=== PATIENT | female | born 1965 | race Caucasian/White ===

== ENCOUNTER 2021-06-04 10:17 | Outpatient (AMBR) | payer MEDICAID, SELFPAY ==
--- NOTE | 2021-05-18 12:50 | PTNOTE_ITS ---
PT OP Initial Eval Patient Information Visit Reasons: post op left knee Medical Diagnosis: M17.12 Treatment Dx #1: Left Knee Pain Treatment Dx #2: Left Knee Weakness Start of Care: 05/18/21 Date of Onset: 09/11/20 Initial Assessment Subjective Pt is a 56 y/o female s/p I and D of the left knee secondary to infection 09/11/20. Pt mention that she had her left knee replaced 08/04/20 shortly afterward it became infected. Pt only recieved a few sessions of homehealth PT. Pt still has knee pain (5/10) with activities. Pt has limitation with walking, chores, squatting, kneeling, self care, cooking, balance, and performing recreational activities. Objective Left Knee AROM: -10 deg to 116 deg Left Knee MMTs Quads: 3+/5 Hs: 3+/5 Left Hip MMTs Glute Med: 3/5 Glute Max: 3/5 SLS: NT Assessment Pt demonstrate left knee pain and mobility deficits s/p I and D leading to decline function. Pt will benefit from physical therapy to increase ROM, strength, and work on ambulation Short Term and Group Home Goals 1) Increase left knee AROM flexion to 120 deg in 8 wks to be able to perform chores 2) Increase left knee MMTs grossly to 4-/5 in 8 wks to be able to perform stairs and steps 3) Decrease knee pain to 2/10 in 8 wks to be able to stand more than 1 hr 4) Increase left hip MMTs grossly to 4-/5 in 8 wks to be able to ambulate without AD 5) Increase SLS to 10 sec in 8 wks to be able to perform self care activities 6) Indep with HEP Treatment Plan 1) Manual Therapy 2) Therapeutic Activities 3) Therapeutic Exercises 4) Modalities (ice, heat) 5) Balance Training 6) Gait Training Frequency and Duration 2 x wk for 8 wks Certification Dates: 05/18/21 to 08/16/21 Office Procedures PT Treatments PT Date of Service: 05/18/21 OP PT Eval Mod Complex 30 minutes: Yes
--- NOTE | 2021-05-29 13:09 | PT.ODAYNRPT ---
PT Outpatient Daily Note Date of Service: 05/29/21 OP Daily Note Visit Reasons: post op left knee Outpatient Physical Therapy Treatment Date: 05/29/21 Subjective: Pt mention that her knee still hurts. Pt has COPD leading to poor endurance Objective: Please see flow chart for list of ther ex performed Assessment: tolerate exercises; pacing throughout PT session due to SOB and fatigue secondary to COPD Plan: Continue with PT Length of Time (minutes) of Treatment: 30 Minutes Office Procedures PT Treatments PT Date of Service: 05/18/21 OP PT Eval Mod Complex 30 minutes: Yes PT Treatments PT Date of Service: 05/29/21 Therapeutic Exercise 30 minutes: Yes
--- NOTE | 2021-05-31 11:55 | PT.ODAYNRPT ---
PT Outpatient Daily Note Date of Service: 05/31/2021 OP Daily Note Visit Reasons: post op left knee Outpatient Physical Therapy Treatment Date: 05/31/21 Subjective: pt states she gets fatigue quickly due to having COPD. Objective: see flow sheet. Assessment: pt does take rest breaks as needed. she was able to complete her walking exercises without resting. advised her to sit and rest but she wanted to continue until she was done with the laps. she does get SOB. gave pt water during her breaks. added new ther ex in which caused her to fatigue more but she did well with them. she is able to demonstrate good knee ROM in flexion and extesnion. Plan: continue POC per PT. Length of Time (minutes) of Treatment: 30 Minutes Office Procedures PT Treatments PT Date of Service: 05/18/21 OP PT Eval Mod Complex 30 minutes: Yes PT Treatments PT Date of Service: 05/31/21 Therapeutic Exercise 30 minutes: Yes PT Treatments PT Date of Service: 05/29/21 Therapeutic Exercise 30 minutes: Yes
--- NOTE | 2021-06-04 10:48 | PT.ODAYNRPT ---
PT Outpatient Daily Note Date of Service: 06/04/2021 OP Daily Note Visit Reasons: post op left knee Outpatient Physical Therapy Treatment Date: 06/04/21 Subjective: pt came in stating her knee has been hurting since the surgery as she points to the back of the knee. Objective: see flow sheet. Assessment: pt did mention the pain while doing the FWD lunges. the more she increased her ROM the more the pain increased. advised her to stop if needed but she completed all reps. shew continues to take rest breaks when needed. she becomes SOB but once she feels better she continues onto the next exercises. Plan: continue POC per PT. Length of Time (minutes) of Treatment: 30 Minutes Office Procedures PT Treatments PT Date of Service: 05/18/21 OP PT Eval Mod Complex 30 minutes: Yes PT Treatments PT Date of Service: 05/31/21 Therapeutic Exercise 30 minutes: Yes PT Treatments PT Date of Service: 06/04/21 Therapeutic Exercise 30 minutes: Yes PT Treatments PT Date of Service: 05/29/21 Therapeutic Exercise 30 minutes: Yes
--- NOTE | 2021-06-26 15:36 | PT.ODS1RPT ---
PT OP Progress/Discharge Note Date of Service: 06/04/22 Progress Note/DC Note Progress Note/Discharge Note: DC Note Patient Information Visit Reasons: post op left knee Service Continue Service or Discharge: Discharge Discharge Date: 06/26/21 Status Assessment: Pt has been seen for 4 visits (eval + 3 visits). Pt last treated on 06/04/21 and has not returned to therapy. Pt has been contact multiple times without success. At this time Pt will be d/c from care due to non-compliance per attendance policy. Pt did not meet set goals in therapy, thank you for your referrals. Office Procedures PT Treatments PT Date of Service: 05/18/21 OP PT Eval Mod Complex 30 minutes: Yes PT Treatments PT Date of Service: 05/31/21 Therapeutic Exercise 30 minutes: Yes PT Treatments PT Date of Service: 06/04/21 Therapeutic Exercise 30 minutes: Yes PT Treatments PT Date of Service: 05/29/21 Therapeutic Exercise 30 minutes: Yes
== END 2021-06-08 23:59 | disposition home or self-care (01) ==
PROVIDERS: PCP Physician Assistant; Referring Provider Physician Assistant; Visit Provider Orthopaedic Surgery
DX: Z47.1 Aftercare following joint replacement surgery (principal); Z96.652 Presence of left artificial knee joint; M25.562 Pain in left knee; R53.1 Weakness; R26.2 Difficulty in walking, not elsewhere classified
CPT/HCPCS: 97110; 97162

== ENCOUNTER 2024-05-18 13:01 | Emergency (ER) | payer MEDICAID, SELFPAY ==
[2024-05-18 13:02] VITALS: BP 130/74; PULSE 80; RESP 19; TEMP 36.7; O2SAT 96
[2024-05-18 13:08] VITALS: PULSE 72; RESP 16; O2SAT 95; BMI 34.7
--- NOTE | 2024-05-18 13:16 | EKG_ITS ---
[facility] Test Date: 2024-05-18 Pat Name: ARLEEN POWELL Department: Room: - Gender: Female [employer]: : 1965 Requested By: Jose Francisco Tran (MILAGROS) Order Number: [id number] Reading MD: Jose Francisco Tran (PA[employer]) Measurements Intervals [place] Rate: 77 P: 58 NV: 157 QRS: 29 QRSD: 87 T: 49 QT: 383 QTc: 435 Interpretive Statements SINUS RHYTHM Compared to ECG 08/06/2020 14:12:23 Sinus arrhythmia no longer present T-wave abnormality no longer present /store/S0/[id number]/ecg/[id number].pdf
--- NOTE | 2024-05-18 13:16 | XR_ITS ---
Examination: PA lateral chest 2 views TECHNIQUE: Upright PA lateral chest 2 views Exam date and time: February 17, 2024 1340 hours Comparison May 14, 2023 INDICATIONS: Shortness of breath beginning 2 days ago. FINDINGS: Normal heart size Mild opacity left base retrocardiac Mild vascular congestion Moderate osteopenia IMPRESSION: Suspicious for early left base pneumonia
--- NOTE | 2024-05-18 13:17 | PD.EDRME ---
Rapid Medical Screening Exam RME Arrival date/time: 05/18/24 13:01 59-year-old female with history of COPD presents emergency department via EMS with complaints of shortness of breath Chief Complaint: Weakness Vital signs: Vital Signs Temperature 98.1 F 05/18/24 13:02 Pulse Rate 80 05/18/24 13:02 Respiratory Rate 19 05/18/24 13:02 Blood Pressure 130/74 05/18/24 13:02 Pulse Oximetry (%) 96 05/18/24 13:02 Oxygen Delivery Method Room Air 05/18/24 13:02
[2024-05-18 13:40] LABS: Basophils % (Auto) 1 % (0-2.5); Eosinophils # (Auto) 0.1 Thou/mm3 (0.0-0.5); Eosinophils % (Auto) 3 % (0-10); Hematocrit 26.4 % (36.0-46.0); Immature Granulocytes % (Auto) 0 % (0-0); Immature Granulocytes Auto 0.01 Thou/mm3 (0.00-0.00); Lymphocytes # (Auto) 0.8 Thou/mm3 (1.0-4.8); Lymphocytes % (Auto) 16 % (10-50); Mean Corpuscular HGB Conc 31.4 g/dl (31.0-37.0); Mean Corpuscular Hemoglobin 25.1 pg (25.0-35.0); Mean Corpuscular Volume 80 fL (80-100); Monocytes # (Auto) 0.5 Thou/mm3 (0.0-0.8); Monocytes % (Auto) 9 % (0-12); Neutrophils # (Auto) 3.6 Thou/mm3 (1.8-7.7); Neutrophils % (Auto) 71 % (37-80); Nucleated Red Blood Cell % 0 /100 WBC (0); Platelet Count 225 Thou/mm3 (140-440); RDW Standard Deviation 40.8 fL (36.4-46.3); Red Blood Count 3.31 Miln/mm3 (4.00-5.20)
[2024-05-18 13:51] LABS: B-Type Natriuretic Peptide 83 pg/mL (0-100); INR 0.9 (0.9-1.3); Partial Thromboplastin Time 24.8 Seconds (22.0-36.0); Prothrombin Time 10.4 Seconds (9.0-12.2)
[2024-05-18 13:54] LABS: Alanine Aminotransferase 17 U/L (10-49); Albumin, Serum 4.3 gm/dL (3.5-5.0); Albumin/Globulin Ratio 1.8 (1.2-2.2); Alkaline Phosphatase 53 U/L (46-116); Anion Gap 4 (7-16); Aspartate Amino Transferase 21 U/L (0-34); BUN/Creatinine Ratio 14 Ratio (12-20); Bilirubin,Total 0.2 mg/dL (0.3-1.2); Blood Urea Nitrogen 11 mg/dL (9-23); Calcium 9.3 mg/dL (8.3-10.6); Calcium (Corrected) 9.3 mg/dL (8.5-10.1); Carbon Dioxide 25.8 mMol/L (20.0-31.0); Chloride 107 mMol/L (98-107); Creatinine (Component) 0.8 mg/dL (0.6-1.3); Estimated Creatinine Clearance 77.1 mL/min (>60); Globulin 2.4 gm/dL (2.3-3.5); Glucose 165 mg/dL (74-106); Magnesium 1.8 mg/dL (1.6-2.6); Osmolality,Calculated 277 (275-295); Potassium 4.2 mMol/L (3.4-5.1); Sodium 137 mMol/L (136-145); Total Protein 6.7 gm/dL (5.7-8.2); Troponin I < 0.002 ng/mL (0.0-0.045); eGFR > 60 See Note
[2024-05-18 13:58] LABS: Hemoglobin 8.3 g/dL (12.0-16.0)
[2024-05-18 14:05] VITALS: BP 146/64; PULSE 75; RESP 20; TEMP 36.8; O2SAT 99
--- NOTE | 2024-05-18 14:10 | PC.NURSE ---
Addendum entered by Fawn Hancock RN 05/18/24 14:12: BIBA c/o SOB, smokes 2packs a day been smoking for 25 years, hx COPD, DM2, etc.. Right side of face has redness, pt states itchy chronic rash (pt is not concerned about that at this time). Pt not showing signs of distress at this time Original Note: BIBA c/o SOB, smokes 2packs a day, hx COPD, DM2, etc.. Right side of face has redness, pt states itchy chronic rash (pt is not concerned about that at this time)
[2024-05-18 14:11] LABS: Collection Type, Urine Clean Catch
--- NOTE | 2024-05-18 14:13 | EDNOTE_ITS ---
ED General RME/HPI General Chief complaint: Weakness Stated complaint: WEAK x 2WKS, SOB/COUGH x 2 DAYS Time Seen by Provider: 05/18/24 13:24 Arrival date/time: 05/18/24 13:01 CC: Shortness of breath while walking onset several days ago with progressive increase in severity the patient admits that she smokes 2+ pack of cigarettes a day for the past 25 years, does not take any oxygen is concerned because last time she came in today noticed that she was anemic and required a blood transfusion. Patient denies chest pain or difficulty breathing at the time of the assessment. RME / HPI RME / HPI narrative: 05/18/24 13:01 59-year-old female with history of COPD presents emergency department via EMS with complaints of shortness of breath Related Data Home Medications ?Medication ?Instructions ?Recorded ?Confirmed risperidone 2 mg tablet (Risperdal) 2 mg PO HS #0 tabs 11/21/16 11/19/23 atenolol 25 mg tablet 25 mg PO BID 09/06/18 11/19/23 duloxetine 20 mg capsule,delayed 20 mg PO BID 08/03/20 11/19/23 release lisinopril 5 mg tablet 5 mg PO QDAY 08/03/20 11/19/23 fluticasone 250 mcg-salmeterol 50 250 inh inhalation PRN PRN 11/19/23 11/19/23 mcg/dose blistr powdr for Shortness Of Breath Or Wheezing inhalation (Advair Diskus) Previous Rx's ?Medication ?Instructions ?Recorded albuterol sulfate 90 mcg/actuation 2 puff INH Q4HR PRN Shortness Of 08/09/20 aerosol inhaler (Ventolin HFA) Breath Or Wheeze #6.7 grams metformin 500 mg tablet 500 mg PO BID #30 tabs 07/29/22 doxycycline hyclate 100 mg capsule 100 mg PO BID #14 caps 05/18/24 Allergies Allergy/AdvReac Type Severity Reaction Status Date / Time hydrochlorothiazide AdvReac Severe pass out Verified 10/30/20 07:35 lactose AdvReac Severe DIARRHEA,GA Verified 10/30/20 07:35 S tetracycline AdvReac Severe upset Verified 10/30/20 07:35 stomach,burning Review of Systems Review of Systems Narrative Review of Systems: GEN: No fever, no chills, no weight loss EYES: No discharge, no visual changes, no pain HEENT: No ear pain, no congestion, no sore throat PULM: + shortness of breath, no cough, no congestion CV: No chest pain, no dyspnea on exertion, no palpitations GI: No nausea, no vomiting, no diarrhea, no pain, no constipation : No frequency, no urgency, no dysuria MUSC/SKEL: No joint pain, no back pain SKIN: No rash PSYCH: No hallucinations, no depression HEME/LYMPH: No easy bleeding or bruising tendencies NEURO: + weakness, no headache Past Medical History Past Medical History NEUROLOGIC: Negative Neurological Disorders, Cerebrovascular Accident, Transient Ischemic Attacks (TIA), Dementia, Alzheimer's Disease, Parkinson's Disease, Brain Tumor, Meningitis, Seizures, Epilepsy, Multiple Sclerosis, Cerebral Palsy, Amyotrophic Lateral Sclerosis (ALS/Taty Gehrig's), Guillain-[place] Syndrome, Spina Bifida, Paralysis, Peripheral Neuropathy, Agee's Palsy, Subdural Hematoma, Migraine, Head Trauma, Spinal Cord Injury or Traumatic Brain Injury CARDIAC: Positive Hypertension; Negative Cardiac Disorders, Myocardial Infarction, Cardiac Arrhythmia, Atrial Fibrillation, Angina, Heart Murmur, Coronary Artery Disease, Atherosclerotic Heart Disease, Peripheral Vascular Disease, Hypercholesterolemia, Aneurysm, Congestive Heart Failure, Congenital Heart Disease, Valvular Heart Disease, Rheumatic Fever, Cardiomyopathy, Edema, Pericarditis, Cellulitis, Deep Vein Thrombosis, Hypotension or Varicose Veins RESPIRATORY: Positive Chronic Obstructive Pulmonary Disease (COPD); Negative Asthma, Bronchitis, Emphysema, Pneumonia, Pulmonary Fibrosis, Cystic Fibrosis, Tuberculosis, Pulmonary Embolism, Pulmonary Edema or Sleep Apnea GASTROINTESTINAL: Positive Gastrointestinal Disorders and Diverticulitis; Negative Hepatitis, Cirrhosis, Pancreatitis, Celiac Disease, Gall Bladder Disease, Gastrointestinal Bleed, Esophageal Varices, Villa's Esophagus, Colitis, Ulcerative Colitis, Diverticulosis, Ulcer, Colorectal Cancer, Irritable Bowel, Crohn's Disease, Obstructive Bowel, Hiatal Hernia, Hemorrhoids, Gastroesophageal Reflux Disease or Obesity GENITOURINARY: Negative Genitourinary Disorders, Renal Disease, Kidney Stones, Polycystic Kidney Disease, Neurogenic Bladder, Inguinal Hernia, Dialysis, Prostate Cancer or Benign Prostatic Hyperplasia REPRODUCTIVE: Positive Previous Pregnancies; Negative Breast Cancer, Endometriosis, Pelvic Inflammatory Disease, Testicular Cancer or Uterine Prolapse MUSCULOSKELETAL: Positive Musculoskeletal Disorders, Arthritis and Osteoporosis; Negative Muscular Dystrophy, Myasthenia Gravis, Marfan's Syndrome, Bone Cancer, Rheumatoid Arthritis, Degenerative Disk Disease, Gout, Scoliosis, Carpal Tunnel Syndrome, Fibromyalgia, Fractures, Degenerative Joint Disease, Osteomyelitis or Poliovirus ENT: Positive Retinal Detachment and Ear Infection; Negative Cataracts, Glaucoma, Blind, Macular Degeneration, Deafness, Head Trauma or Eye Prosthesis ENDOCRINE: Positive Diabetes Mellitus Type 2; Negative Endocrine Disorders, Diabetes Mellitus Type 1, Hypoglycemia, Bee's Syndrome, [place]'s Disease, Hyperthyroidism, Hypothyroidism, Parathyroid Disease, Pituitary Disease, Systemic Lupus Erythematosus, Syndrome of Inappropriate Antidiuretic Hormone (SIADH), Adrenal Disease or Graves' Disease HEMATOLOGIC: Negative Blood Disorders, Anemia, Leukemia, Hemophilia, Thalassemia, Sickle Cell Disease or Clotting Problems PSYCHO/SOCIAL: Negative Psychiatric Problems, Schizophrenia, Recreational Drug Use, Bipolar Disorder, Depression, Anxiety, Behavior Problems, Self-Mutilation, Attention Deficit Disorder, Attention Deficit Hyperactivity Disorder, Depression, Post Traumatic Stress Disorder or Eating Disorder OTHER HISTORY: Positive Hospitalization, Blood Transfusions, MRSA and Chicken Pox; Negative Autoimmune Disease, Down Syndrome, Autism, Developmental Delay, Shingles, Falls, Blood Transfusion Reaction, Anesthesia Reactions, Organ Transplant, Chemotherapy, Radiation Therapy, Hyperbaric Therapy, VRSA, Vancomycin-Resistant Enterococci, Human Immunodeficiency Virus (HIV), Measles, Mumps, Rubella ([place] Measles), Pertussis, Clostridium Difficile, Cancer, Breast Cancer, Cervical Cancer, Colorectal Cancer, Lung Cancer, Ovarian Cancer, Prostate Cancer or Testicular Cancer Family History FAMILY HISTORY: Positive Family Psychiatric Problems, Family Cardiac Disorders, Family Gastrointestinal Problems, Family Cancer and Family Surgery; Negative Family Respiratory Disorders or Family Anesthesia Reaction Surgical History SURGICAL: Positive Tonsillectomy and Joint Replacement (L knee); Negative Cardiac Surgery, Open Heart Surgery, Coronary Artery Bypass Graft, Valve Replacement, Vascular Surgery, Coronary Stent, Cardiac Catheterization, Pacemaker, Angiogram, Auto Implanted Cardiovert Defib, Carotid Endarterectomy, Endocrine Surgery, Thyroidectomy, Ear Surgery, Tympanostomy Tube, Eye Surgery, Nose Surgery, Oral Surgery, Adenoidectomy, Cochlear Implant, Corneal Transplant, Throat Surgery, Abdominal Surgery, Tracheostomy, Gastric Bypass Surgery, Gastrostomy, Bowel Surgery, Nephrectomy, Transurethral Resection, Amputation, Open Reduction Internal Fixation, Arthroscopy, Neurologic Surgery, Brain Shunt, Mastectomy, Lumpectomy, Hysterectomy, Tubal Ligation, Section or Organ Transplant Social History SMOKING STATUS: Heavy (> 1 pack/day) ED Exam Narrative Physical exam: [General: Obese not in any acute distress Head normocephalic HEENT: Within acceptable limits Neck is supple nontender Chest equal chest rise nontender to palpation Respiratory: Coarse breath sounds throughout upper and lower lobes bilaterally. No tachypnea nonproductive wet cough CV: Rate rhythm is regular no murmurs rubs or clicks Abdomen is distended secondary to body habitus soft nontender no masses positive bowel sounds all 4 quadrants Back: No CVA tenderness no spinous process tenderness from cervical spine thoracic and lumbar spine Skin: Eczema type rash to the right forehead and to the ankles of both legs. Otherwise skin is intact no petechiae rash induration ulceration or crepitus Extremities: Moving all extremity against resistance cap refill less than 2 seconds neurosensory intact Neuro: Awake alert oriented x3 Glascow coma 15 no focal deficits] Course Quality Measures none Orders Category Date Time Status Bedside COVID-19 Antigen Test NOW Care 05/18/24 13:17 Completed Bedside Influenza A&B Antigen Test NOW Care 05/18/24 13:17 Completed EKG (ED ONLY) *Do not use* NOW Care 05/18/24 13:16 Completed EKG (ED Only) Stat Exams 05/18/24 13:16 Draft XR chest 2V Stat Exams 05/18/24 13:16 Completed B-Type Natriuretic Peptide Stat Lab 05/18/24 13:25 Completed CBC Stat Lab 05/18/24 13:25 Completed Comprehensive Metabolic Panel Stat Lab 05/18/24 13:25 Completed Drug Screen,Urine Stat Lab 05/18/24 13:40 Completed Magnesium Stat Lab 05/18/24 13:25 Completed Partial Thromboplastin Time Stat Lab 05/18/24 13:25 Completed Prothrombin Time with INR Stat Lab 05/18/24 13:25 Completed Troponin I Stat Lab 05/18/24 13:25 Completed Urinalysis Stat Lab 05/18/24 13:40 Completed Doxycycline [Vibramycin] Med 05/18/24 14:53 Discontinued 100 mg PO X1 ONE Vital Signs Vital signs: Vital Signs Temperature 98.1 F 05/18/24 13:02 Pulse Rate 80 05/18/24 13:02 Respiratory Rate 19 05/18/24 13:02 Blood Pressure 130/74 05/18/24 13:02 Pulse Oximetry (%) 96 05/18/24 13:02 Oxygen Delivery Method Room Air 05/18/24 13:02 [facility] Patient data External records reviewed:: [facility] previous records Clinical information provided by:: patient Social determinants that could affect healthcare access:: none Patient has the following chronic illnesses:: COPD heavy smoker diabetes depression, hypertension How is presenting disease/condition affected by chronic disease/condition?: e xacerbated by Evaluation data The following diagnostics were reviewed and interpreted by me:: lab results, radiology exam(s) and EKG tracing(s) Lab and/or radiology exams considered but not ordered:: EKG performed at 1321 shows a ventricular rate of 77 [place] interval 157 QRS of 87 QTc of 415 this is sinus rhythm normal EKG. When compared to an old EKG of November 2023 there are no significant changes CBC shows no leukocytosis H&H are unchanged with a stable anemia at 8.3 and 26 no thrombocytopenia Coags within acceptable limits CMP shows mildly elevated glucose level at 165 no other electrolyte imbalances renal impairment transaminitis or T. bili elevation Chest x-ray as interpreted by radiology shows a possible left base pneumonia. Interpretation Summary: Patient is resting comfortable with oxygen saturations of 95% or greater while resting. The patient is not in any acute distress. At this time given the patient is smoking 2+ packs a day, and there is a question of pneumonia. He will be discharging the patient on antibiotics and she is to follow-up promptly with her primary care provider regarding smoking cessation. Patient was also advised that if there is a worsening of symptoms or fever she is to return the emergency room immediately for further evaluation. Medications Medications considered but not ordered:: None Medication administrations:: Medication Administration History Discontinued Medications Doxycycline Hyclate (Doxycycline 100 Mg Tablet) 100 mg PO X1 ONE Stop: 05/18/24 14:54 Last Admin: 05/18/24 15:12 Dose: 100 mg Documented By: None Consultations Consultation(s) initiated? (list below): No Diagnosis Differential Diagnosis ED Complaint MDM: Pneumonia COPD CHF Most likely diagnosis given after review of the tests above:: Pneumonia, shortness of breath Admission Indicated Admission indicated?: not indicated Explain why admission is indicated or not indicated:: Stable for outpatient follow-up Admission Request Was there a request for admission?: No Disposition Plan Disposition Plan: Discharge Discharge Attestation Discharge Attestation: The patient and all family members were given an opportunity to ask questions and understood the discharge instructions. Discharge instructions specifically effects, indications for sooner follow up or return to the emergency department, and the expected course of current diagnosis. Patient condition: Stable Medical Decision Making Differential Diagnosis Differential Diagnosis: Pneumonia COPD CHF Lab Data 05/18/24 13:25 05/18/24 13:25 Labs: Lab Results 05/18/24 05/18/24 Range/Units 13:25 13:40 WBC 5.0 (3.6-11.0) Thou/mm3 RBC 3.31 L (4.00-5.20) Miln/mm3 Hgb 8.3 L (12.0-16.0) g/dL Hct 26.4 L (36.0-46.0) % MCV 80 (80-100) fL MCH 25.1 (25.0-35.0) pg MCHC 31.4 (31.0-37.0) g/dl RDW Std Deviation 40.8 (36.4-46.3) fL Plt Count 225 (140-440) Thou/mm3 Neut % (Auto) 71 (37-80) % Lymph % (Auto) 16 (10-50) % [place] % (Auto) 9 (0-12) % Eos % (Auto) 3 (0-10) % Baso % (Auto) 1 (0-2.5) % Neut # (Auto) 3.6 (1.8-7.7) Thou/mm3 Lymph # (Auto) 0.8 L (1.0-4.8) Thou/mm3 [place] # (Auto) 0.5 (0.0-0.8) Thou/mm3 Eos # (Auto) 0.1 (0.0-0.5) Thou/mm3 Baso # (Auto) 0.0 (0.0-0.2) Thou/mm3 Immature Gran # (Auto) 0.01 H (0.00-0.00) Thou/mm3 Absolute Nucleated RBC 0.00 (0.00-0.00) Thou/mm3 Immature Gran % 0 (0-0) % Nucleated RBC % 0 (0) /100 WBC PT 10.4 (9.0-12.2) Seconds INR 0.9 (0.9-1.3) APTT 24.8 (22.0-36.0) Seconds Sodium 137 (136-145) mMol/L Potassium 4.2 (3.4-5.1) mMol/L Chloride 107 (98-107) mMol/L Carbon Dioxide 25.8 (20.0-31.0) mMol/L Anion Gap 4 L (7-16) BUN 11 (9-23) mg/dL Creatinine 0.8 (0.6-1.3) mg/dL Estim Creat Clear Calc 77.1 (>60) mL/min eGFR > 60 (60 - ) See Note BUN/Creatinine Ratio 14 (12-20) Ratio Glucose 165 H (74-106) mg/dL Calculated Osmolality 277 (275-295) Calcium 9.3 (8.3-10.6) mg/dL Corrected Calcium 9.3 (8.5-10.1) mg/dL Magnesium 1.8 (1.6-2.6) mg/dL Total Bilirubin 0.2 L (0.3-1.2) mg/dL AST 21 (0-34) U/L ALT 17 (10-49) U/L Alkaline Phosphatase 53 (46-116) U/L Troponin I < 0.002 (0.0-0.045) ng/mL B-Natriuretic Peptide 83 (0-100) pg/mL Total Protein 6.7 (5.7-8.2) gm/dL Albumin 4.3 (3.5-5.0) gm/dL Globulin 2.4 (2.3-3.5) gm/dL Albumin/Globulin Ratio 1.8 (1.2-2.2) Ur Collection Type Clean Catch Urine Color Colorless A (Lt Yel-Yel) Urine Clarity Clear (Clear/Hazy) Urine pH 6.5 (5.0-7.0) Ur Specific [place] 1.006 (1.001-1.035) Urine Protein Negative (Neg - Trace) Urine Glucose (UA) Negative (Negative) Urine Ketones Negative (Negative) Urine Blood Negative (Negative) Urine Nitrite Negative (Negative) Urine Bilirubin Negative (Negative) Urine Urobilinogen (Auto) Negative (0.0-1.0) mg/dL Ur Leukocyte Esterase Negative (Negative) Urine RBC < 1 (0-3) /hpf Urine WBC 1 (0-5) /hpf Ur Squamous Epith Cells 1 (0-5) /hpf Urine Bacteria None (None) Urine Opiates Screen Negative (Negative) Urine Fentanyl Screen Negative (Negative) Ur Barbiturates Screen Negative (Negative) U Amphetamin/Meth Scrn Negative (Negative) U Benzodiazepines Scrn Negative (Negative) U Cocaine Metab Screen Negative (Negative) U Marijuana (THC) Screen Negative (Negative) Discharge Plan Plan Patient Disposition: HOME (Self Care) Patient condition on transfer: Stable Prescriptions/Referrals Prescriptions/Med Rec: New doxycycline hyclate 100 mg capsule 100 mg PO BID Qty: 14 0RF No Action risperidone [Risperdal] 2 MG tablet 2 mg PO HS Qty: 0 lisinopril 5 mg Tablet 5 mg PO QDAY duloxetine 20 mg Capsule,Delayed Release(Dr/Ec) 20 mg PO BID albuterol sulfate [Ventolin HFA] 90 mcg/actuation Hfa Aerosol Inhaler 2 puff INH Q4HR PRN (Reason: Shortness Of Breath Or Wheeze) Qty: 6.7 0RF atenolol 25 mg Tablet 25 mg PO BID metformin 500 mg tablet 500 mg PO BID Qty: 30 1RF fluticasone propion-salmeterol [Advair Diskus] 250-50 mcg/dose blister with device 250 inh INHALATION PRN PRN (Reason: Shortness Of Breath Or Wheezing) Patient Comments: INHALE ONE PUFF BY MOUTH TWICE DAILY RINSE MOUTH AFTER USE Referrals: Sujit Palencia MD [Physician] - In 1 week No Primary/Family,Physician [Primary Care Provider] - In 1 week Problem List Clinical Impression: Pneumonia, Shortness of breath, Anemia Patient/Caregiver Discharge Instructions Education Materials: Treating Pneumonia, Coping with Smoking Withdrawal, ED Pneumonia (Adult) Additional Instructions: Take the medications as prescribed there is a worsening of symptoms in spite of the medications return the emergency room for reevaluation. Your blood count is the same as when you were discharged after the transfusion in your last admission. Please follow-up with your primary care doctor for further evaluation. Print Language: [place] Stand Alone Forms: [employer] Award Info., Patient Portal Info Letter PA/SANTIAGO Supervising Physician SIMBA/SANTIAGO Supervising Physician: Carlos Penn ENP
[2024-05-18 14:30] LABS: Bilirubin,Urine Negative (Negative); Blood,Urine Negative (Negative); Clarity,Urine Clear (Clear/Hazy); Color,Urine Colorless (Lt Yel-Yel); Glucose, Urine Negative (Negative); Ketones,Urine Negative (Negative); Leukocyte Esterase,Urine Negative (Negative); Nitrite,Urine Negative (Negative); PH,Urine 6.5 (5.0-7.0); Protein,Urine Negative (Neg - Trace); RBC,Urine < 1 /hpf (0-3); Specific Gravity,Urine 1.006 (1.001-1.035); Squamous Epithelial Cell,Urine 1 /hpf (0-5); Urobilinogen,Urine Negative mg/dL (0.0-1.0); WBC,Urine 1 /hpf (0-5)
[2024-05-18 14:32] LABS: Amphetamine/Methamp Scrn,U Negative (Negative); Barbiturate Screen,Urine Negative (Negative); Benzodiazepines Screen,Urine Negative (Negative); Benzoylecgonine Screen, Ur Negative (Negative); Fentanyl Screen,Urine Negative (Negative); Opiate Screen,Urine Negative (Negative); THC Screen,Urine Negative (Negative)
[2024-05-18] MEDS: DOXYCYCLINE 100 MG TABLET PO (15:12)
[2024-05-18 15:13] VITALS: BP 135/71; PULSE 84; RESP 20; TEMP 36.4; O2SAT 96
--- NOTE | 2024-05-18 16:27 | PC.CC ---
HEALTH UNDERWRITER CC engaged by bedside RN to arrange transport for pt back to her residence. HEALTH UNDERWRITER CC met with pt at bedside to confirm home address of [address] Pt phone number is [phone]. Pt agreeable to be transported via [employer].
== END 2024-05-18 15:17 | disposition home or self-care (01) ==
PROVIDERS: Nurse Practitioner Primary Care; Emergency Provider Emergency Medicine
DX: J18.9 Pneumonia, unspecified organism (principal); D64.9 Anemia, unspecified; F17.210 Nicotine dependence, cigarettes, uncomplicated
CPT/HCPCS: 36415; 71046; 80053; 80307; 81001; 83735; 83880; 84484; 85025; 85610; 85730; 87400; 87811; 93005; 99283; A9270

== ENCOUNTER 2024-09-08 12:53 | Emergency (ER) | payer MEDICAID, SELFPAY ==
[2024-09-08] VITALS (17 sets, daily range): BP systolic 110–156; BP diastolic 51–82; PULSE 79–95; RESP 12–23; TEMP 36.7–36.8; O2SAT 91–98; BMI 33.8
--- NOTE | 2024-09-08 13:11 | PC.NURSE ---
PT BROUGHT BY AMBULANCE DUE TO LOW HGB AND NEEDING TRANSFUSION
--- NOTE | 2024-09-08 13:14 | EDNOTE_ITS ---
ED General RME/HPI General Chief complaint: Recheck/Abnormal Lab/Rx Stated complaint: ABNORMAL LABS, NEEDS TRANSFUSION Time Seen by Provider: 09/08/24 13:13 Arrival date/time: 09/08/24 12:53 CC: Abnormal lab HPI patient presents the ER via EMS and was informed today, from a blood draw yesterday, that her hemoglobin was 5. EMS reports stable vital signs and route. The patient states she is awake alert oriented complaining of mild intermittent weakness but no other acute finding. Patient denies any black tarry stools rectal bleeding nasal bleeding. Patient states similar episode happened 1 year ago and she was transfused with 2 bags of blood . Patient is awake alert oriented nontoxic-appearing not in any acute distress. Patient denies any blood thinners. Patient states her primary care provider is Do. Related Data Home Medications ?Medication ?Instructions ?Recorded ?Confirmed risperidone 2 mg tablet (Risperdal) 2 mg PO HS #0 tabs 11/21/16 11/19/23 atenolol 25 mg tablet 25 mg PO BID 09/06/18 duloxetine 20 mg capsule,delayed 20 mg PO BID 08/03/20 11/19/23 release lisinopril 5 mg tablet 5 mg PO QDAY 08/03/20 fluticasone 250 mcg-salmeterol 50 250 inh inhalation P RN PRN 11/19/23 11/19/23 mcg/dose blistr powdr for Shortness Of Breath Or Wheez ing inhalation (Advair Diskus) Previous Rx's ?Medication ?Instructions ?Recorded albuterol sulfate 90 mcg/actuation 2 puff INH Q4HR PRN Shortness Of 08/09/20 aerosol inhaler (Ventolin HFA) Breath Or Wheeze #6.7 g stephen metformin 500 mg tablet 500 mg PO BID #30 tabs 07/29 doxycycline hyclate 100 mg capsule 100 mg PO BID #14 c aps 05/18/24 Allergies Allergy/AdvReac Type Severity Reaction Status Date / Time hydrochlorothiazide AdvReac Severe pass out Verified 09/08/24 13:09 lactose AdvReac Severe DIARRHEA,GA Verified 09/08/24 13:09 S tetracycline AdvReac Severe upset Verified 09/08/24 13:09 stomach,burning Review of Systems Review of Systems Narrative Review of Systems: GEN: No fever, no chills, no weight loss EYES: No discharge, no visual changes, no pain HEENT: No ear pain, no congestion, no sore throat PULM: No shortness of breath, no cough, no congestion CV: No chest pain, no dyspnea on exertion, no palpitations GI: No nausea, no vomiting, no diarrhea, no pain, no constipation : No frequency, no urgency, no dysuria MUSC/SKEL: No joint pain, no back pain SKIN: No rash PSYCH: No hallucinations, no depression HEME/LYMPH: No easy bleeding or bruising tendencies NEURO: + weakness, no headache Past Medical History Past Medical History NEUROLOGIC: Negative Neurological Disorders, Cerebrovascular Accident, Transient Ischemic Attacks (TIA), Dementia, Alzheimer's Disease, Parkinson's Disease, Brain Tumor, Meningitis, Seizures, Epilepsy, Multiple Sclerosis, Cerebral Palsy, Amyotrophic Lateral Sclerosis (ALS/Taty Gehrig's), Guillain-Otis Syndrome, Spina Bifida, Paralysis, Peripheral Neuropathy, Agee's Palsy, Subdural Hematoma, Migraine, Head Trauma, Spinal Cord Injury or Traumatic Brain Injury CARDIAC: Positive Hypertension; Negative Cardiac Disorders, Myocardial Infarction, Cardiac Arrhythmia, Atrial Fibrillation, Angina, Heart Murmur, Coronary Artery Disease, Atherosclerotic Heart Disease, Peripheral Vascular Disease, Hypercholesterolemia, Aneurysm, Congestive Heart Failure, Congenital Heart Disease, Valvular Heart Disease, Rheumatic Fever, Cardiomyopathy, Edema, Pericarditis, Cellulitis, Deep Vein Thrombosis, Hypotension or Varicose Veins RESPIRATORY: Positive Chronic Obstructive Pulmonary Disease (COPD); Negative Asthma, Bronchitis, Emphysema, Pneumonia, Pulmonary Fibrosis, Cystic Fibrosis, Tuberculosis, Pulmonary Embolism, Pulmonary Edema or Sleep Apnea GASTROINTESTINAL: Positive Gastrointestinal Disorders and Diverticulitis; Negative Hepatitis, Cirrhosis, Pancreatitis, Celiac Disease, Gall Bladder Disease, Gastrointestinal Bleed, Esophageal Varices, Villa's Esophagus, Colitis, Ulcerative Colitis, Diverticulosis, Ulcer, Colorectal Cancer, Irritable Bowel, Crohn's Disease, Obstructive Bowel, Hiatal Hernia, Hemorrhoids, Gastroesophageal Reflux Disease or Obesity GENITOURINARY: Negative Genitourinary Disorders, Renal Disease, Kidney Stones, Polycystic Kidney Disease, Neurogenic Bladder, Inguinal Hernia, Dialysis, Prostate Cancer or Benign Prostatic Hyperplasia REPRODUCTIVE: Positive Previous Pregnancies; Negative Breast Cancer, Endometriosis, Pelvic Inflammatory Disease, Testicular Cancer or Uterine Prolapse MUSCULOSKELETAL: Positive Musculoskeletal Disorders, Arthritis and Osteoporosis; Negative Muscular Dystrophy, Myasthenia Gravis, Marfan's Syndrome, Bone Cancer, Rheumatoid Arthritis, Degenerative Disk Disease, Gout, Scoliosis, Carpal Tunnel Syndrome, Fibromyalgia, Fractures, Degenerative Joint Disease, Osteomyelitis or Poliovirus ENT: Positive Retinal Detachment and Ear Infection; Negative Cataracts, Glaucoma, Blind, Macular Degeneration, Deafness, Head Trauma or Eye Prosthesis ENDOCRINE: Positive Diabetes Mellitus Type 2; Negative Endocrine Disorders, Diabetes Mellitus Type 1, Hypoglycemia, Bee's Syndrome, Yates's Disease, Hyperthyroidism, Hypothyroidism, Parathyroid Disease, Pituitary Disease, Systemic Lupus Erythematosus, Syndrome of Inappropriate Antidiuretic Hormone (SIADH), Adrenal Disease or Graves' Disease HEMATOLOGIC: Negative Blood Disorders, Anemia, Leukemia, Hemophilia, Thalassemia, Sickle Cell Disease or Clotting Problems PSYCHO/SOCIAL: Negative Psychiatric Problems, Schizophrenia, Recreational Drug Use, Bipolar Disorder, Depression, Anxiety, Behavior Problems, Self-Mutilation, Attention Deficit Disorder, Attention Deficit Hyperactivity Disorder, Depression, Post Traumatic Stress Disorder or Eating Disorder OTHER HISTORY: Positive Hospitalization, Blood Transfusions, MRSA and Chicken Pox; Negative Autoimmune Disease, Down Syndrome, Autism, Developmental Delay, Shingles, Falls, Blood Transfusion Reaction, Anesthesia Reactions, Organ Transplant, Chemotherapy, Radiation Therapy, Hyperbaric Therapy, VRSA, Vancomycin-Resistant Enterococci, Human Immunodeficiency Virus (HIV), Measles, Mumps, Rubella ([place] Measles), Pertussis, Clostridium Difficile, Cancer, Breast Cancer, Cervical Cancer, Colorectal Cancer, Lung Cancer, Ovarian Cancer, Prostate Cancer or Testicular Cancer Family History FAMILY HISTORY: Positive Family Psychiatric Problems, Family Cardiac Disorders, Family Gastrointestinal Problems, Family Cancer and Family Surgery; Negative Family Respiratory Disorders or Family Anesthesia Reaction Surgical History SURGICAL: Positive Tonsillectomy and Joint Replacement (L knee); Negative Cardiac Surgery, Open Heart Surgery, Coronary Artery Bypass Graft, Valve Replacement, Vascular Surgery, Coronary Stent, Cardiac Catheterization, Pacemaker, Angiogram, Auto Implanted Cardiovert Defib, Carotid Endarterectomy, Endocrine Surgery, Thyroidectomy, Ear Surgery, Tympanostomy Tube, Eye Surgery, Nose Surgery, Oral Surgery, Adenoidectomy, Cochlear Implant, Corneal Transplant, Throat Surgery, Abdominal Surgery, Tracheostomy, Gastric Bypass Surgery, Gastrostomy, Bowel Surgery, Nephrectomy, Transurethral Resection, Amputation, Open Reduction Internal Fixation, Arthroscopy, Neurologic Surgery, Brain Shunt, Mastectomy, Lumpectomy, Hysterectomy, Tubal Ligation, Section or Organ Transplant Social History SMOKING STATUS: Current every day smoker ED Exam Narrative Physical exam: [General: Appears not in any acute distress Head normocephalic HEENT: Eyes pupils are PERRLA EOMs are intact conjunctiva is blanched. Mouth pink pale membranes although the subsystems of HEENT are within acceptable limits Neck is supple nontender Chest equal chest rise nontender to palpation Respiratory: Clear to auscultation no wheezes crackles or rubs CV: Rate rhythm is regular no murmurs rubs or clicks Abdomen is soft nontender no masses positive bowel sounds all 4 quadrants Back: No CVA tenderness no spinous process tenderness from cervical spine thoracic and lumbar spine Skin: Pale, intact no petechiae rash induration ulceration or crepitus Extremities: Moving all extremity against resistance cap refill less than 2 seconds neurosensory intact Neuro: Awake alert oriented x3 Glascow coma 15 no focal deficits] Course Quality Measures none Orders Category Date Time Status Transfuse,blood/blood products NOW Care 09/08/24 13:57 Completed B-Type Natriuretic Peptide Stat Lab 09/08/24 13:34 Completed CBC Stat Lab 09/08/24 13:34 Completed Comprehensive Metabolic Panel Stat Lab 09/08/24 13:34 Completed LDH (Lactate Dehydrogenase) Stat Lab 09/08/24 13:34 Completed Magnesium Stat Lab 09/08/24 13:34 Completed Partial Thromboplastin Time Stat Lab 09/08/24 13:34 Completed Prothrombin Time with INR Stat Lab 09/08/24 13:34 Completed Troponin I Stat Lab 09/08/24 13:34 Completed Type and Screen Stat Lab 09/08/24 13:34 Completed Urinalysis Stat Lab 09/08/24 21:10 Completed prbc [Red Blood Cells] Stat Lab 09/08/24 13:34 Completed Furosemide [Lasix Inj] Med 09/08/24 21:29 Discontinued 20 mg IVP X1 ONE Vital Signs Vital signs: Vital Signs Temperature 98.2 F 09/08/24 13:03 Pulse Rate 86 09/08/24 13:03 Respiratory Rate 18 09/08/24 13:03 Blood Pressure 110/53 L 09/08/24 13:03 Pulse Oximetry (%) 97 09/08/24 13:03 Oxygen Delivery Method Room Air 09/08/24 13:03 [facility] Patient data External records reviewed:: [facility] previous records and EMS form Clinical information provided by:: patient and EMS Social determinants that could affect healthcare access:: none Patient has the following chronic illnesses:: Anemia How is presenting disease/condition affected by chronic disease/condition?: u neffected by Evaluation data The following diagnostics were reviewed and interpreted by me:: lab results Lab and/or radiology exams considered but not ordered:: CBC shows a WBCs of 4.5 H&H of 5.1 and 19.0 respectively platelet count of 210 Coags within acceptable limits CMP shows a chloride of 111 gap of 6 BUN of 7 No transaminitis or T. bili elevation Troponin is negative BNP of 130. Type and screen shows O+. Interpretation Summary: Anemia Medications Medications considered but not ordered:: None Medication administrations:: Medication Administration History Discontinued Medications Furosemide (Furosemide Inj 10 Mg/Ml Vial 2 Ml) 20 mg IVP X1 ONE Stop: 09/08/24 21:30 Last Admin: 09/08/24 23:26 Dose: 20 mg Documented By: WO None Consultations Consultation(s) initiated? (list below): No Diagnosis Differential Diagnosis ED Complaint MDM: Hemorrhagic anemia microcytic anemia pernicious anemia Most likely diagnosis given after review of the tests above:: Anemia Admission Indicated Admission indicated?: not indicated Explain why admission is indicated or not indicated:: Stable for outpatient follow-up Admission Request Was there a request for admission?: No Disposition Plan Disposition Plan: Discharge Discharge Attestation Discharge Attestation: The patient and all family members were given an opportunity to ask questions and understood the discharge instructions. Discharge instructions specifically effects, indications for sooner follow up or return to the emergency department, and the expected course of current diagnosis. Patient condition: Stable Medical Decision Making Differential Diagnosis Differential Diagnosis: Hemorrhagic anemia microcytic anemia pernicious anemia Lab Data 09/08/24 13:34 09/08/24 13:34 Labs: Lab Results 09/08/24 09/08/24 Range/Units 13:34 21:10 WBC 4.5 (3.6-11.0) Thou/mm3 RBC 2.79 L (4.00-5.20) Miln/mm3 Hgb 5.1 L* (12.0-16.0) g/dL Hct 19.0 L* (36.0-46.0) % MCV 68 L (80-100) fL MCH 18.3 L (25.0-35.0) pg MCHC 26.8 L (31.0-37.0) g/dl RDW Std Deviation 49.1 H (36.4-46.3) fL Plt Count 210 (140-440) Thou/mm3 Neut % (Auto) 70 (37-80) % Lymph % (Auto) 13 (10-50) % [place] % (Auto) 13 H (0-12) % Eos % (Auto) 3 (0-10) % Baso % (Auto) 0 (0-2.5) % Neut # (Auto) 3.2 (1.8-7.7) Thou/mm3 Lymph # (Auto) 0.6 L (1.0-4.8) Thou/mm3 [facility] # (Auto) 0.6 (0.0-0.8) Thou/mm3 Eos # (Auto) 0.1 (0.0-0.5) Thou/mm3 Baso # (Auto) 0.0 (0.0-0.2) Thou/mm3 Immature Gran # (Auto) 0.01 H (0.00-0.00) Thou/mm3 Absolute Nucleated RBC 0.00 (0.00-0.00) Thou/mm3 Immature Gran % 0 (0-0) % Nucleated RBC % 0 (0) /100 WBC PT 10.9 (9.0-12.2) Seconds INR 1.0 (0.9-1.3) APTT 23.4 (22.0-36.0) Seconds Sodium 142 (136-145) mMol/L Potassium 4.4 (3.4-5.1) mMol/L Chloride 111 H (98-107) mMol/L Carbon Dioxide 25.5 (20.0-31.0) mMol/L Anion Gap 6 L (7-16) BUN 7 L (9-23) mg/dL Creatinine 0.7 (0.6-1.3) mg/dL Estim Creat Clear Calc 86.9 (>60) mL/min eGFR > 60 (60 - ) See Note BUN/Creatinine Ratio 10 L (12-20) Ratio Glucose 96 (74-106) mg/dL Calculated Osmolality 281 (275-295) Calcium 8.5 (8.3-10.6) mg/dL Corrected Calcium 8.8 (8.5-10.1) mg/dL Magnesium 1.7 (1.6-2.6) mg/dL Total Bilirubin 0.2 L (0.3-1.2) mg/dL AST 28 (0-34) U/L ALT 15 (10-49) U/L Alkaline Phosphatase 60 (46-116) U/L Lactate Dehydrogenase 233 (120-246) U/L Troponin I < 0.002 (0.0-0.045) ng/mL B-Natriuretic Peptide 130 H (0-100) pg/mL Total Protein 6.2 (5.7-8.2) gm/dL Albumin 3.6 (3.5-5.0) gm/dL Globulin 2.6 (2.3-3.5) gm/dL Albumin/Globulin Ratio 1.4 (1.2-2.2) Ur Collection Type Clean Catch Urine Color Lt-Yellow (Lt Yel-Yel) Urine Clarity Clear (Clear/Hazy) Urine pH 6.5 (5.0-7.0) Ur Specific [place] 1.016 (1.001-1.035) Urine Protein Negative (Neg - Trace) Urine Glucose (UA) Negative (Negative) Urine Ketones Negative (Negative) Urine Blood Negative (Negative) Urine Nitrite Negative (Negative) Urine Bilirubin Negative (Negative) Urine Urobilinogen (Auto) Negative (0.0-1.0) mg/dL Ur Leukocyte Esterase Positive (Negative) Urine RBC 1 (0-3) /hpf Urine WBC 8 H (0-5) /hpf Ur Squamous Epith Cells 2 (0-5) /hpf Urine Bacteria None (None) Blood Type O Positive Antibody Screen NEGATIVE Crossmatch See Detail Blood Bank Wristband ID Yes Discharge Plan Plan Patient Disposition: HOME (Self Care) Patient condition on transfer: Stable Prescriptions/Referrals Prescriptions/Med Rec: No Action risperidone [Risperdal] 2 MG tablet 2 mg PO HS Qty: 0 lisinopril 5 mg Tablet 5 mg PO QDAY duloxetine 20 mg Capsule,Delayed Release(Dr/Ec) 20 mg PO BID albuterol sulfate [Ventolin HFA] 90 mcg/actuation Hfa Aerosol Inhaler 2 puff INH Q4HR PRN (Reason: Shortness Of Breath Or Wheeze) Qty: 6.7 0RF atenolol 25 mg Tablet 25 mg PO BID metformin 500 mg tablet 500 mg PO BID Qty: 30 1RF doxycycline hyclate 100 mg capsule 100 mg PO BID Qty: 14 0RF fluticasone propion-salmeterol [Advair Diskus] 250-50 mcg/dose blister with device 250 inh INHALATION PRN PRN (Reason: Shortness Of Breath Or Wheezing) Patient Comments: INHALE ONE PUFF BY MOUTH TWICE DAILY RINSE MOUTH AFTER USE Referrals: Maribeth Paniagua FNP-C [Primary Care Provider] - In 1 week Problem List Clinical Impression: Anemia Patient/Caregiver Discharge Instructions Diet Instructions: Follow-up promptly at the [facility] listed below Education Materials: Anemia Additional Instructions: -If you don't have a PCP, you can make an appointment at the [facility]: [address] [place] [address] Print Language: Kiswahili Stand Alone Forms: [employer] Award Info., Patient Portal Info Letter PA/SOLUTION MAKE UP OPERATOR Supervising Physician SIMBA/SOLUTION MAKE UP OPERATOR Supervising Physician: Carlos Penn ENP
[2024-09-08 13:47] LABS: Basophils % (Auto) 0 % (0-2.5); Eosinophils # (Auto) 0.1 Thou/mm3 (0.0-0.5); Eosinophils % (Auto) 3 % (0-10); Immature Granulocytes % (Auto) 0 % (0-0); Immature Granulocytes Auto 0.01 Thou/mm3 (0.00-0.00); Lymphocytes # (Auto) 0.6 Thou/mm3 (1.0-4.8); Lymphocytes % (Auto) 13 % (10-50); Mean Corpuscular HGB Conc 26.8 g/dl (31.0-37.0); Mean Corpuscular Hemoglobin 18.3 pg (25.0-35.0); Mean Corpuscular Volume 68 fL (80-100); Monocytes # (Auto) 0.6 Thou/mm3 (0.0-0.8); Monocytes % (Auto) 13 % (0-12); Neutrophils # (Auto) 3.2 Thou/mm3 (1.8-7.7); Neutrophils % (Auto) 70 % (37-80); Nucleated Red Blood Cell % 0 /100 WBC (0); Platelet Count 210 Thou/mm3 (140-440); RDW Standard Deviation 49.1 fL (36.4-46.3); Red Blood Count 2.79 Miln/mm3 (4.00-5.20); White Blood Count 4.5 Thou/mm3 (3.6-11.0)
[2024-09-08 13:49] LABS: Hemoglobin 5.1 g/dL (12.0-16.0)
[2024-09-08 13:58] LABS: Partial Thromboplastin Time 23.4 Seconds (22.0-36.0); Prothrombin Time 10.9 Seconds (9.0-12.2)
[2024-09-08 14:18] LABS: B-Type Natriuretic Peptide 130 pg/mL (0-100)
[2024-09-08 14:23] LABS: Alanine Aminotransferase 15 U/L (10-49); Albumin, Serum 3.6 gm/dL (3.5-5.0); Albumin/Globulin Ratio 1.4 (1.2-2.2); Alkaline Phosphatase 60 U/L (46-116); Anion Gap 6 (7-16); Aspartate Amino Transferase 28 U/L (0-34); BUN/Creatinine Ratio 10 Ratio (12-20); Bilirubin,Total 0.2 mg/dL (0.3-1.2); Blood Urea Nitrogen 7 mg/dL (9-23); Calcium 8.5 mg/dL (8.3-10.6); Calcium (Corrected) 8.8 mg/dL (8.5-10.1); Carbon Dioxide 25.5 mMol/L (20.0-31.0); Chloride 111 mMol/L (98-107); Creatinine (Component) 0.7 mg/dL (0.6-1.3); Estimated Creatinine Clearance 86.9 mL/min (>60); Globulin 2.6 gm/dL (2.3-3.5); Glucose 96 mg/dL (74-106); LDH (Lactate Dehydrogenase) 233 U/L (120-246); Magnesium 1.7 mg/dL (1.6-2.6); Osmolality,Calculated 281 (275-295); Potassium 4.4 mMol/L (3.4-5.1); Sodium 142 mMol/L (136-145); Total Protein 6.2 gm/dL (5.7-8.2); Troponin I < 0.002 ng/mL (0.0-0.045); eGFR > 60 See Note
[2024-09-08 21:21] LABS: Collection Type, Urine Clean Catch
[2024-09-08 21:32] LABS: Bilirubin,Urine Negative (Negative); Blood,Urine Negative (Negative); Clarity,Urine Clear (Clear/Hazy); Color,Urine Lt-Yellow (Lt Yel-Yel); Glucose, Urine Negative (Negative); Ketones,Urine Negative (Negative); Leukocyte Esterase,Urine Positive (Negative); Nitrite,Urine Negative (Negative); PH,Urine 6.5 (5.0-7.0); Protein,Urine Negative (Neg - Trace); RBC,Urine 1 /hpf (0-3); Specific Gravity,Urine 1.016 (1.001-1.035); Squamous Epithelial Cell,Urine 2 /hpf (0-5); Urobilinogen,Urine Negative mg/dL (0.0-1.0); WBC,Urine 8 /hpf (0-5)
[2024-09-08] MEDS: FUROSEMIDE INJ 10 MG/ML VIAL 2 ML 20 MG IVP (23:26)
[2024-09-09 00:19] VITALS: BP 152/83; PULSE 91; RESP 19; TEMP 36.8; O2SAT 93
[2024-09-09 05:57] VITALS: BP 127/93; PULSE 105; RESP 16; TEMP 36.8; O2SAT 92
== END 2024-09-09 06:00 | disposition home or self-care (01) ==
PROVIDERS: Registered Nurse General Practice; Emergency Provider Family Medicine
DX: D64.9 Anemia, unspecified (principal)
CPT/HCPCS: 36415; 36430; 80053; 81001; 83615; 83735; 83880; 84484; 85025; 85610; 85730; 86850; 86900; 86901; 86921; 86922; 96374; 99285; J1940; P9016

== ENCOUNTER 2024-10-08 10:42 | Inpatient (IN) | payer MEDICAID, SELFPAY ==
[2024-10-08] VITALS (7 sets, daily range): BP systolic 126–159; BP diastolic 60–82; PULSE 76–115; RESP 18–24; TEMP 36.2–36.9; O2SAT 95–99; BMI 27.4
--- NOTE | 2024-10-08 | XR_ITS ---
Examinations: MRI Brain without intravenous contrast. MRA brain without intravenous contrast. MRA carotids without intravenous contrast 3-D vascular reconstructions Date and time of exam: October 08, 2024 1752 hours INDICATIONS: Onset focal neurologic deficit, weakness, slurred speech, ataxia, difficulty walking beginning 2 days ago, large acute infarct in the right cerebral hemisphere on CT brain scan today Technique: Multiple axial and sagittal images of the brain have been obtained MRA brain carotid images without contrast obtained, including 3-D postprocessing, vascular maximum intensity projection images Findings: [place] is not enlarged. The optic chiasm and infundibular stalk are not remarkable. Prepontine and interpeduncular cisterns are not enlarged. No localized enlargement of the medulla or nick. Fourth ventricle and cerebellar tonsils normal in position. T1 weighted sagittal images demonstrate subtle hyperintense foci for instance sagittal image 4 and 5 suspicious for minimal hemorrhagic transformation. Fourth ventricle is midline. Mass in the cerebellopontine angle region is not evident. 7th and 8th nerve complexes exhibits symmetry. Globes are symmetrical with no retro-orbital mass. Increased white matter signal prominent in the right temporal occipital posterior parietal lobe Diffusion-weighted images demonstrate very large foci of restricted diffusion in the right temporal lobe, right occipital lobe right parietal lobe Mass-effect upon the ventricular system is not identified. MRA brain images reduced to filling right middle cerebral artery trifurcation vessels with occlusion of the right middle cerebral artery trifurcation branch top over 3-D image 13 Impression: Large acute infarct with possible minimal hemorrhagic transformation in the right temporal occipital posterior parietal lobe
--- NOTE | 2024-10-08 11:26 | XR_ITS ---
Examination: CT brain head without contrast. 2-D sagittal coronal reconstructions Date and time of exam:October 08, 2024 1147 hours INDICATIONS: Patient fell today with injury to the head, head pain CTDI: vol (mGy):47.6 DLP: (mGycm):982 Technique: Multiple CT axial sections of the brain have been obtained, 5 mm slice thickness. Contrast has not been administered. 2-D sagittal, coronal reconstructions have been obtained Low dose protocols were performed. One or more of the following dose reduction techniques were used; automated exposure control, adjustment of the mA and/or KV according to patient size, use of iterative reconstruction technique. Findings: Interval large low density area in the right temporal occipital posterior parietal lobe most consistent with acute infarct Intra-axial or extra-axial hemorrhage density is not seen. No mass effect or midline shift Basal cisterns are not remarkable. Fourth ventricle is midline. Cranial vault intact. Impression: Negative for acute hemorrhage, mass effect or midline shift Findings most consistent with large acute infarct in the right temporal parietal occipital lobe
--- NOTE | 2024-10-08 11:27 | XR_ITS ---
Examination: AP chest single view Technique one AP portable upright chest single view Exam date and time: October 08, 2024 at 12:30 PM Comparison May 18, 2024 INDICATIONS: Generalized weakness beginning 3 days ago. FINDINGS: Minimal prominence left ventricle No lobar pneumonia or pulmonary edema Prominent osteopenia IMPRESSION: No lobar pneumonia or pulmonary edema
--- NOTE | 2024-10-08 11:30 | PD.EDWEAK ---
ED Weakness RME/HPI General Chief complaint: Weakness Stated complaint: WEAKNESS Time Seen by Provider: 10/08/24 11:26 Arrival date/time: 10/08/24 10:42 RME / HPI RME / HPI Narrative: 59-year-old female patient with significant history of of hypertension diabetes mellitus, congestive heart failure, COPD, was brought in by EMS for evaluation regarding generalized body weakness. According to her she has been weak for several days, falling a lot, more than 3 times for the last few days. Patient told me that she is unable to ambulate due to generalized body weakness. Patient was noted to be unkept, with dried feces on her bilateral hands and feet. She told me she is unable to take care of herself. She usually order food online. Patient told me that she had no family she had no kids she had no relatives who can help her. Fire department filed a CPS complaints against her. Her house is uninhabitable. Patient denies any headache denies any neck pain denies any chest pain denies any abdominal pain. She denies any fever. Related Data Home Medications ?Medication ?Instructions ?Recorded ?Confirmed risperidone 2 mg tablet (Risperdal) 2 mg PO HS #0 tabs 11/21/16 11/19/23 atenolol 25 mg tablet 25 mg PO BID 09/06/18 11/19/23 duloxetine 20 mg capsule,delayed 20 mg PO BID 08/03/20 11/19/23 release lisinopril 5 mg tablet 5 mg PO QDAY 08/03/20 11/19/23 fluticasone 250 mcg-salmeterol 50 250 inh inhalation PRN PRN 11/19/23 11/19/23 mcg/dose blistr powdr for Shortness Of Breath Or Wheezing inhalation (Advair Diskus) Previous Rx's ?Medication ?Instructions ?Recorded albuterol sulfate 90 mcg/actuation 2 puff INH Q4HR PRN Shortness Of 08/09/20 aerosol inhaler (Ventolin HFA) Breath Or Wheeze #6.7 grams metformin 500 mg tablet 500 mg PO BID #30 tabs 07/29/22 doxycycline hyclate 100 mg capsule 100 mg PO BID #14 caps 05/18/24 Allergies Allergy/AdvReac Type Severity Reaction Status Date / Time hydrochlorothiazide AdvReac Severe pass out Verified 09/08/24 13:09 lactose AdvReac Severe DIARRHEA,GA Verified 09/08/24 13:09 S tetracycline AdvReac Severe upset Verified 09/08/24 13:09 stomach,burning Review of Systems Review of Systems Narrative Review of Systems: Review of system reviewed and within normal limits except mentioned in HPI ED Exam Narrative Physical exam: VITAL SIGNS: Reviewed. GENERAL APPEARANCE: Alert and interactive, follows commands, no acute distress, unkept, with dried feces and urine on her upper extremity and lower extremity and perineal area HEAD AND FACE: Non-traumatic. Mild facial asymmetry noted on the left ENT: PERRL, pink conjunctivitis, eyelid no trauma, Mucous membrane moist. NECK: Supple, nontender, no nuchal rigidity. CHEST: No tenderness, no crepitus, no paradoxical movement, no retractions. LUNGS: Clear, well ventilated, symmetric, no rales, no wheezing, no ronchi, no stridor, good breath sounds bilaterally. HEART: Regular rate, regular rhythm, no murmur, no gallops. ABDOMEN: Soft, positive bowel sounds, nondistended, no guarding, nontender, no rebound, no masses, RECTAL: Deferred. GENITAL: Deferred. NEUROLOGICAL: Gross motor function intact sensory function intact, Appropriate for age. MUSCULOSKELETAL: low back nontender, full range of motion. EXTREMITIES: + Slight left upper extremity drifting nontender, full range of motion. SKIN: Color pink, dry, no rash, no lacerations, no abrasions, no contusions. LYMPHATICS: Deferred. Course Quality Measures none Orders Category Date Time Status Admit to Inpatient Status Routine Admission 10/08/24 15:29 Active Patient Condition Routine Admission 10/08/24 15:28 Ordered Bedrest NOW Care 10/08/24 15:29 Active COVID-19 Screening Questionnaire NOW Care 10/08/24 14:17 Active Decision to Admit X1 Care 10/08/24 14:17 Active EKG (ED ONLY) *Do not use* NOW Care 10/08/24 11:28 Completed Diop [Urinary Catheter] QS Care 10/08/24 12:33 Active Head of Bed Elevation NOW Care 10/08/24 15:30 Active IV [Insert IV] NOW Care 10/08/24 12:22 Active Miscellaneous Nursing Order NOW Care 10/08/24 15:32 Active Neuro Check Q4H Care 10/08/24 15:30 Active Notify provider NEEDED Care 10/08/24 15:28 Active Obtain weight X1 Care 10/08/24 15:28 Active Vital Signs, Non-Routine Q4H Care 10/08/24 15:30 Ordered Vital Signs, Non-Routine Q4H Care 10/08/24 19:30 Ordered Vital Signs, Non-Routine Q4H Care 10/08/24 23:30 Ordered Consult to Neurology / Tele-Neurology Routine Cons 10/08/24 15:30 Active Referral Physical Therapy Routine Cons 10/08/24 15:30 Active Referral Speech Therapy Routine Cons 10/08/24 15:30 Active CA echo doppler complete Routine Exams 10/08/24 15:[address] head/brain wo con Stat Exams 10/08/24 11:26 Completed EKG (ED Only) Stat Exams 10/08/24 11:26 Ordered XR chest 1V Stat Exams 10/08/24 11:27 Completed Ammonia Stat Lab 10/08/24 12:14 Completed B-Type Natriuretic Peptide Stat Lab 10/08/24 12:14 Completed CBC AM DRAW Lab 10/09/24 05:00 Ordered CBC AM DRAW Lab 10/10/24 05:00 Ordered CBC AM DRAW Lab 10/11/24 05:00 Ordered CBC Stat Lab 10/08/24 12:14 Completed CK [Creatine Kinase] Stat Lab 10/08/24 12:14 Completed Comprehensive Metabolic Panel AM DRAW Lab 10/09/24 05:00 Ordered Comprehensive Metabolic Panel AM DRAW Lab 10/10/24 05:00 Ordered Comprehensive Metabolic Panel AM DRAW Lab 10/11/24 05:00 Ordered Comprehensive Metabolic Panel Stat Lab 10/08/24 12:14 Completed Hemoglobin A1C [Glycohemoglobin w (eAG)] Stat Lab 10/08/24 12:14 Completed Iron Panel Routine Lab 10/09/24 05:00 Ordered Lipid Panel AM DRAW Lab 10/09/24 05:00 Ordered Magnesium AM DRAW Lab 10/09/24 05:00 Ordered Partial Thromboplastin Time AM DRAW Lab 10/09/24 05:00 Ordered Partial Thromboplastin Time Stat Lab 10/08/24 12:14 [address] Review Blood Smear Routine Lab 10/09/24 05:00 Ordered Phosphorous AM DRAW Lab 10/09/24 05:00 Ordered Prothrombin Time with INR AM DRAW Lab 10/09/24 05:00 Ordered Prothrombin Time with INR Stat Lab 10/08/24 12:14 Completed Reticulocyte Count Routine Lab 10/09/24 05:00 Ordered Thyroid Stimulating Hormone AM DRAW Lab 10/09/24 05:00 Ordered Troponin I Stat Lab 10/08/24 12:14 Completed Urinalysis, C/S if Indicated Stat Lab 10/08/24 12:49 Completed Acetaminophen Tab [Tylenol Tab] Med 10/08/24 15:30 Active 650 mg PO Q6H PRN Aspirin [Ecotrin] Med 10/08/24 13:56 Discontinued 81 mg PO X1 ONE DULoxetine HCL [Cymbalta] Med 10/08/24 21:00 Active 20 mg PO BID Fluticasone/Salmeterol 250/50 [Advair 250-50 Diskus] Med 10/08/24 15:32 Discontinued 1 puff INH BIDRT PRN Heparin Inj Med 10/08/24 21:00 Active 5,000 unit SC Q12H Ondansetron Inj [Zofran Inj] Med 10/08/24 15:30 Active 4 mg IV Q6H PRN Pantoprazole Inj [Protonix Inj] Med 10/09/24 09:00 Active 40 mg IVP QDAY Senna [Senokot] Med 10/08/24 15:30 Active 1 tab PO QDAY PRN Sodium Chloride 0.9% 1000 ml [Ns] 1,000 ml Med 10/08/24 11:28 Discontinued IV 999 mls/hr risperiDONE [RisperDAL] Med 10/08/24 21:00 Active 2 mg PO HS Code Status Routine Oth 10/08/24 15:28 Ordered Vital Signs Vital signs: Vital Signs Temperature 97.7 F 10/08/24 10:44 Pulse Rate 101 H 10/08/24 10:44 Respiratory Rate 18 10/08/24 10:44 Blood Pressure 126/73 10/08/24 10:44 Pulse Oximetry (%) 97 10/08/24 10:44 Oxygen Delivery Method Room Air 10/08/24 10:44 Weakness MDM Narrative MDM Narrative:: 59-year-old female patient with significant history of of hypertension diabetes mellitus, congestive heart failure, COPD, was brought in by EMS for evaluation regarding generalized body weakness. According to her she has been weak for several days, falling a lot, more than 3 times for the last few days. Patient told me that she is unable to ambulate due to generalized body weakness. Patient was noted to be unkept, with dried feces on her bilateral hands and feet. She told me she is unable to take care of herself. She usually order food online. Patient told me that she had no family she had no kids she had no relatives who can help her. Fire department filed a CPS complaints against her. Her house is uninhabitable. Patient denies any headache denies any neck pain denies any chest pain denies any abdominal pain. She denies any fever. Patient was referred to teleneuro, nonemergent consult since we do not know the well-known time CT scan of the head showed Negative for acute hemorrhage, mass effect or midline shift Findings most consistent with large acute infarct in the right temporal parietal occipital lobe Spoke with teleneurologist who told me to start the patient on 81 mg of aspirin and admit the patient for stroke workup Patient's laboratory workup all came back unremarkable. Patient data External records reviewed:: None Clinical information provided by:: patient Social determinants that could affect healthcare access:: none Patient has the following chronic illnesses:: Hypertension How is presenting disease/condition affected by chronic disease/condition?: exacerbated by Evaluation data The following diagnostics were reviewed and interpreted by me:: lab results, radiology exam(s) and EKG tracing(s) Lab and/or radiology exams considered but not ordered:: None Interpretation Summary: EKG showed sinus tachycardia, ventricular rate of [address] segment elevation depression noted. Medications / Prescriptions Medications or Prescriptions considered but not ordered:: None Medication administrations:: Medication Administration History Acetaminophen (Acetaminophen 325 Mg Tablet) 650 mg PO Q6H PRN PRN Reason: Fever >100 or pain 1-3 Stop: 11/07/24 15:29 Atorvastatin Calcium (Atorvastatin Calcium 20 Mg Tablet) 80 mg PO HS HUEY Stop: 11/07/24 20:59 Duloxetine HCl (Duloxetine Hcl 20 Mg Capsule) 20 mg PO BID HUEY Stop: 11/07/24 20:59 Heparin Sodium (Porcine) (Heparin Sod Inj 5000 Unit/Ml Vial) 5,000 unit SC Q12H HUEY Stop: 10/22/24 20:59 Nicotine (Nicotine Patch 7 Mg/24 Hr Patch.Td24) 7 mg TOP QDAY PRN PRN Reason: As needed for nicotine craving Stop: 11/07/24 16:29 Ondansetron HCl (Ondansetron Inj 2 Mg/Ml Inj 2 Ml) 4 mg IV Q6H PRN; Protocol PRN Reason: NAUSEA OR VOMITING Stop: 11/07/24 15:29 Pantoprazole Sodium (Pantoprazole Inj 40 Mg Vial) 40 mg IVP QDAY HUEY Stop: 11/08/24 08:59 Risperidone (Risperidone 1 Mg Tablet) 2 mg PO HS HUEY Stop: 11/07/24 20:59 Sennosides (Senna Tablet) 1 tab PO QDAY PRN; Protocol PRN Reason: constipation Stop: 11/07/24 15:29 Discontinued Medications Aspirin (Aspirin Ec 81 Mg Tabec) 81 mg PO X1 ONE Stop: 10/08/24 13:57 Last Admin: 10/08/24 14:18 Dose: 81 mg Documented By: Comments: PILL WILL NOT SCAN Sodium Chloride (Ns) 1,000 mls @ 999 mls/hr IV .Q1H1M ONE Stop: 10/08/24 12:28 Last Infusion: 10/08/24 14:24 Dose: Infused Documented By: Admin: 10/08/24 12:30 Dose: 999 mls/hr Documented By: Fluticasone/Salmeterol (Fluticasone/Salmeterol 250/50 14 Dose Inh) 1 puff INH BIDRT PRN PRN Reason: wheezing or sob Stop: 11/07/24 18:59 Aspirin 81 mg Consultations Consultation(s) initiated? (list below): Yes Consultation #1 (Physician, Specialty, Details): Teleneurologist Diagnosis Weakness Differential Diagnosis: sepsis and dehydration Most likely diagnosis given after review of the tests above:: CVA Admission Indicated Admission indicated?: indicated Admission Request Was there a request for admission?: Yes Admission Attestation Admission request attestation: Discussed case with [Dr. Jackson] from Hospitalist service regarding admission. Discussed patients ED course, exam findings, labs, and radiology results. The Hospitalist [agrees] to accept the patient for admission. Disposition Plan Disposition Plan: Admit Discharge Plan Plan Patient Disposition: Admit Acute Care w/in Hospital Problem List Clinical Impression: Acute CVA (cerebrovascular accident)
--- NOTE | 2024-10-08 11:42 | PC.NURSE ---
PT CAME IN WITH C/O GENERALIZED WEAKNESS FOR A FEW DAYS. SPEECH SLIGHTLY SLURRED. NO C/O NUMBNESS OR INCREASED WEAKNESS TO ONE SIDE. PT ALERT AND ABLE TO ANSWER QUESTIONS APPROPRIATELY. PT REPORTS THAT SHE HAS NOT BEEN ABLE TO WALK AND HAS BEEN FALLING ALOT DUE TO THE WEAKNESS. MULTIPLE BRUISING NOTED ALL OVER BODY. BRUISING NOTED TO BE IN DIFFERENT STAGES OF HEALING. PT LIVES ALONE. EMS REPORTED THAT PT'S HOUSE APPEARED TO BE UNINHABITABLE. APS REPORT WAS MADE BY FIRE DEPARTMENT PER EMS. WILL INFORM MANAGER USER INTERFACE.
--- NOTE | 2024-10-08 11:42 | PC.NURSE ---
OLD BRUISING TO R SIDE FOREHEAD NOTED, PER PT IT WAS FROM FALLING A FEW DAYS AGO. NO LOC
--- NOTE | 2024-10-08 11:50 | PC.NURSE ---
PT TO CT
--- NOTE | 2024-10-08 12:20 | PC.NURSE ---
UPON FURTHER EXAM WITH PROVIDER AT BEDSIDE PT'S LEFT SIDE IS NOTED TO BE SLIGHTLY WEAKER THAN RIGHT SIDE. PT CAN LIFT BOTH ARMS AND LEGS BUT SLIGHT DRIFT IS NOTED TO LEFT SIDE HOWEVER IT DOES NOT HIT THE BED. SLIGHT FACIAL DROOP IS NOTED WHEN PT SMILES. PT AGAIN DENIES NUMBNESS OR TINGLING TO FACE OR BODY. EYES PERRL BUT SLUGGISH. PT ALERT AND ORIENTED.
[2024-10-08 12:30] LABS: Basophils % (Auto) 0 % (0-2.5); Eosinophils % (Auto) 0 % (0-10); Hematocrit 30.1 % (36.0-46.0); Immature Granulocytes % (Auto) 0 % (0-0); Immature Granulocytes Auto 0.02 Thou/mm3 (0.00-0.00); Lymphocytes # (Auto) 0.4 Thou/mm3 (1.0-4.8); Lymphocytes % (Auto) 7 % (10-50); Mean Corpuscular HGB Conc 29.9 g/dl (31.0-37.0); Mean Corpuscular Volume 70 fL (80-100); Monocytes # (Auto) 0.5 Thou/mm3 (0.0-0.8); Monocytes % (Auto) 8 % (0-12); Neutrophils # (Auto) 5.3 Thou/mm3 (1.8-7.7); Neutrophils % (Auto) 85 % (37-80); Nucleated Red Blood Cell % 0 /100 WBC (0); Platelet Count 264 Thou/mm3 (140-440); RDW Standard Deviation 52.5 fL (36.4-46.3); Red Blood Count 4.29 Miln/mm3 (4.00-5.20); White Blood Count 6.3 Thou/mm3 (3.6-11.0)
[2024-10-08] MEDS: SODIUM CHLORIDE 0.9% 1000 ML 1,000 ML 999 ML IV (12:30)
[2024-10-08 12:38] LABS: Partial Thromboplastin Time 22.9 Seconds (22.0-36.0)
[2024-10-08 12:41] LABS: Ammonia 10 uMol/L (11-32); B-Type Natriuretic Peptide < 20 pg/mL (0-100)
[2024-10-08 12:42] LABS: Alanine Aminotransferase 19 U/L (10-49); Albumin, Serum 4.2 gm/dL (3.5-5.0); Albumin/Globulin Ratio 1.4 (1.2-2.2); Alkaline Phosphatase 49 U/L (46-116); Anion Gap 9 (7-16); Aspartate Amino Transferase 35 U/L (0-34); BUN/Creatinine Ratio 15 Ratio (12-20); Bilirubin,Total 0.6 mg/dL (0.3-1.2); Blood Urea Nitrogen 9 mg/dL (9-23); Calcium 9.3 mg/dL (8.3-10.6); Calcium (Corrected) 9.3 mg/dL (8.5-10.1); Carbon Dioxide 24.6 mMol/L (20.0-31.0); Chloride 105 mMol/L (98-107); Creatine Kinase 186 U/L (34-171); Creatinine (Component) 0.6 mg/dL (0.6-1.3); Estimated Creatinine Clearance 91.3 mL/min (>60); Globulin 3.1 gm/dL (2.3-3.5); Glucose 99 mg/dL (74-106); Osmolality,Calculated 276 (275-295); Potassium 3.8 mMol/L (3.4-5.1); Sodium 139 mMol/L (136-145); Total Protein 7.3 gm/dL (5.7-8.2); Troponin I < 0.020 ng/mL (0.0-0.045); eGFR > 60 See Note
[2024-10-08 12:43] LABS: Glucose Estimated Average 97 mg/dL (80-131)
[2024-10-08 12:53] LABS: Collection Type, Urine Clean Catch
[2024-10-08 12:58] LABS: Bilirubin,Urine Negative (Negative); Blood,Urine Negative (Negative); Clarity,Urine Clear (Clear/Hazy); Color,Urine Yellow (Lt Yel-Yel); Culture Indicated,Urine Not Indicated; Glucose, Urine Negative (Negative); Ketones,Urine 2+ (Negative); Leukocyte Esterase,Urine Negative (Negative); Nitrite,Urine Negative (Negative); Protein,Urine Negative (Neg - Trace); RBC,Urine 3 /hpf (0-3); Specific Gravity,Urine 1.017 (1.001-1.035); Squamous Epithelial Cell,Urine < 1 /hpf (0-5); Urobilinogen,Urine Negative mg/dL (0.0-1.0); WBC,Urine 1 /hpf (0-5)
--- NOTE | 2024-10-08 13:50 | ESCONSULT_ITS ---
Tele Neuro Consultation Consultation Date 10/08/24 Most Recent Vital Signs Last Vital Signs Temp 98.4 F 10/08/24 12:17 Pulse 107 H 10/08/24 12:17 Resp 24 H 10/08/24 12:17 BP 133/60 H 10/08/24 12:17 Pulse Ox 97 10/08/24 12:17 O2 Del Method Room Air 10/08/24 12:17 Laboratory-Coagulation Panel PT 11.0 Seconds (9.0-12.2) 10/08/24 12:14 INR 1.0 (0.9-1.3) 10/08/24 12:14 APTT 22.9 Seconds (22.0-36.0) 10/08/24 12:14 Consultation Narrative [facility] TeleNeurology Consult Services Stat Consult Patient Name:???ARLEEN POWELL Date of :???1965 Identification Number:??? Date of Service:???10/08/2024 12:08:43 Diagnosis:?I63.89 - Cerebrovascular accident (CVA) due to other mechanism ([facility]) Impression Patient with left sided weakness, slurred speech and neglect on exam consistent with the large right temporoparietal infarct seen on CT head. Recommend admission for subacute stroke work up. Recommendations: Our recommendations are outlined below. Diagnostic Studies :MRI head without contrast CTA head and neck with contrast Laboratory Studies :Lipid panel * I orderedHemoglobin A1c Antithrombotic Medication :Aspirin 81 mg PO daily Statins for LDL goal less than 70 Nursing Recommendations :IV Fluids, avoid dextrose containing fluids, Maintain euglycemia Neuro checks q4 hrs x 24 hrs and then per shift Head of bed 30 degrees Continue with Telemetry Consultations :Recommend Speech therapy if failed dysphagia screen Physical therapy/Occupational therapy DVT Prophylaxis :Choice of Primary Team Disposition :Neurology will follow Metrics: Dispatch Time: 10/08/2024 12:08:43 Callback Response Time: 10/08/2024 12:14:05 Primary Provider Notified of Diagnostic Impression and Management Plan on: 10/08/2024 13:46:58 CT HEAD: Reviewed Patient with large right temporoparietal infarct Chief Complaint: left sided weakness History of Present Illness:Patient is a 59 year old Female. 59 yo F with history of DM, HTN and CHF who is presenting with generalized weakness for a couple of days. Patient states that she was falling about 2-3 days ago. She didn't notice weakness just that she was falling. She has never had issues like this before. On exam, slight weakness on left side with drift, a little left side facial droop, and slightly slurred speech. Past Medical History: ?Hypertension ?Diabetes Mellitus ?There is no history of Hyperlipidemia ?There is no history of Coronary Artery Disease ?There is no history of Stroke Medications: No Anticoagulant use? No Antiplatelet use Reviewed EMR for current medications Allergies:? Reviewed Social History: Unable To Obtain Due To Patient Status :?Patient Cannot Communicate Relevant Social History Family History: There is no family history of premature cerebrovascular disease pertinent to this consultation ROS : 14 Points Review of Systems was performed and was negative except mentioned in HPI. Past Surgical History: There Is No Surgical History Contributory To Today?s Visit Examination: BP(133/60),?Pulse(107), 1A: Level of Consciousness - Alert; keenly responsive?+ 0 1B: Ask Month and Age - Both Questions Right?+ 0 1C: Blink Eyes & Squeeze Hands - Performs Both Tasks?+ 0 2: Test Horizontal Extraocular Movements - Normal?+ 0 3: Test Visual Pozo - Complete Hemianopia?+ 2 4: Test Facial Palsy (Use Grimace if Obtunded) - Partial paralysis (lower face)? + 2 5A: Test Left Arm Motor Drift - Drift, but doesn't hit bed?+ 1 5B: Test Right Arm Motor Drift - No Drift for 10 Seconds?+ 0 6A: Test Left Leg Motor Drift - Drift, but doesn't hit bed?+ 1 6B: Test Right Leg Motor Drift - No Drift for 5 Seconds?+ 0 7: Test Limb Ataxia (FNF/Heel-Ritchie) - No Ataxia?+ 0 8: Test Sensation - Normal; No sensory loss?+ 0 9: Test Language/Aphasia - Normal; No aphasia?+ 0 10: Test Dysarthria - Mild-Moderate Dysarthria: Slurring but can be understood?+ 1 11: Test Extinction/Inattention - Visual/tactile/auditory/spatial/personal inattention?+ 1 NIHSS Score:?8 Spoke with :?Jesús Peter This consult was conducted in real time using interactive audio and video technology. Patient was informed of the technology being used for this visit and agreed to proceed. Patient located in hospital and provider located at home/office setting. Patient is being evaluated for possible acute neurologic impairment and high probability of imminent or life - threatening deterioration.I spent total of 35 minutes providing care to this patient, including time for face to face visit via telemedicine, review of medical records, imaging studies and discussion of findings with providers, the patient and / or family. Dr Camelia Ruvalcaba [facility] For Inpatient follow-up with [facility] physician please call [facility] at . As we are not an outpatient service for any post hospital discharge needs please contact the hospital for assistance. If you have any questions for the [facility] physicians or need to reconsult for clinical or diagnostic changes please contact us via [facility] at .
[2024-10-08] MEDS: ASPIRIN EC 81 MG TABEC PO (14:18)
--- NOTE | 2024-10-08 14:37 | PC.NURSE ---
PT REQUESTING COFFEE. INFORMED PT THAT WE NEED TO WAIT TILL ADMITTING DOCTOR GIVES OKAY FOR FOOD/FLUIDS PO. PT VERBALIZED UNDERSTANDING
--- NOTE | 2024-10-08 15:50 | ESHP_ITS ---
<Statement entered by Simone Thurman MD - 10/08/24 22:12> Patient was seen and examined at bedside. I agree on the assessment and plan of this note. - Patient's plan and care discussed with my attending, Dr. José Luis Thurman MD Internal Medicine PGY-2 Documentation for date of: 10/08/24 HPI History of Present Illness History of present illness: Marilyn is a 59 y/o female with PMHx of HTN, COPD (not on home oxygen), iron deficiency anemia who comes in for an evaluation of generalized weakness, slurred speech, trouble walking, onset couple of days ago. Patient reports that she has been having the symptoms for couple of days and has not improved much for her. She was told by her neighbor that she had noticed that she had slurred speech so she had advised her to go get further evaluated. She denies having any recent travel history. She also denies having a stroke before. She denies having any headache, vomiting, diarrhea. She said that she had trouble walking and had stumbled however did not fully fall. She says that she was recently in here last month for anemia in which she had 4 red blood cell transfusions. She said her most recent colonoscopy and EGD was in November 2023 in which it was normal. 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 She is never gotten formal PFTs done. She has no other complaints at this time. She says she walks with a cane. She is requesting to drink coffee at this time. ED course: Patient arrives to the ED with temperature of 97.7, heart rate 101, respiratory rate 18, blood pressure 126/73, saturating 97% on room air. She was worked up was found to have a sodium 139, potassium 3.8, BUN/creatinine of 9 and 0.6 respectively, bicarb 24, white count 6.3, hemoglobin 6, platelets 264, coagulation panel unremarkable, CK1 86, AST ALT 35 119 respectively, troponin negative x 1, calcium 9.3. Head CT was done and showed large acute right temporal parietal occipital lobe infarct. Teleneuro was consulted who had assessed the patient and gave NIHS score of 8 and had recommended further imaging and admission for further workup of patient's stroke. Patient was given aspirin 81 and 1 L normal saline bolus. Medicine was consulted and patient was admitted to the floors. PMHx: As above Surgeries: Tonsillectomy when she was 5, cataract surgery couple of months ago Meds: Atenolol, risperidone, Cymbalta. Patient cannot remember her other medicines Allergies: Tetracycline, lactulose, hydrochlorothiazide Family Hx: She says that her family has a strong history of cancers including breast cancer. Her dad had diabetes however he did not Cancer. Her mother did not have cancer either. She says that she sister has had some form of cancer. Social Hx: She was born in [facility], raised [place] She has been twice, currently single, has 3 kids but they all live in [place]. She says she lives alone in [place]. She says she takes care of herself. She admits to [id number] smoking history, about 2 months ago she started smoking half a pack a day which previously before that she was smoking 2 packs a day for 40 years. Used to be a heavy drinker, in December she will be 6 years sober. She denies history of oral IV drug use. Review of Systems Review of Systems Narrative Review of Systems: Constitutional: No fever, chills, fatigue, weakness, weight loss HEENT: No eye pain, vision loss, ear pain, hearing loss, dysphagia, Cardiovascular: No chest pain, palpitations, edema, pain with walking Respiratory: No cough, shortness of breath, wheezing GI: No NVD, abdominal pain, constipation, blood in stool, loss of appetite, heartburn Extremities: No presence of pitting edema MSK: No back pain, joint pain, joint swelling Neuro: No dizziness, numbness, positive weakness, no headaches, seizures, tremors, positive trouble with gait, positive for slurred speech Psych: No anxiety, depression Exam Vital Signs Temp Pulse Resp BP Pulse Ox O2 Del Method 97.7 F 100 19 135/68 H 97 Room Air 10/08/24 14:37 10/08/24 14:37 10/08/24 14:37 10/08/24 14:37 10/08/24 14:37 10/08/24 14:37 Narrative Exam General: AAOx3, NAD, female, looks older than she is, looks a bit unkempt HEENT: Dry mucous membranes, conjunctiva clear, EOMI, PERRLA, poor dentition Cardiovascular: S1, S2, radial pulses +2 bilat, RRR Pulmonary: CTAB bilat no cough, no wheezing GI: No tenderness to light or deep palpitation, no guarding, rigidity, rebound tenderness or distension Extremities: No presence of trace or pitting edema in lower extremities bilaterally, dorsalis pedis pulses +2 bilaterally Neuro: AAOx3, appears to have some left arm weakness in upper extremity, possible some left side facial droop, pupillary reflex intact bilaterally, able to follow most commands Psych: Able to cooperate Results: Labs 10/09/24 05:25 10/09/24 05:25 Labs: Short CBC 10/08/24 Range/Units 12:14 WBC 6.3 (3.6-11.0) Thou/mm3 Hgb 9.0 L (12.0-16.0) g/dL Hct 30.1 L (36.0-46.0) % Plt Count 264 D (140-440) Thou/mm3 BMP 10/08/24 12:14 Sodium 139 Potassium 3.8 Chloride 105 Carbon Dioxide 24.6 BUN 9 Creatinine 0.6 Glucose 99 Calcium 9.3 Cardiac Enzymes 10/08/24 Range/Units 12:14 Total Creatine Kinase 186 H (34-171) U/L Troponin I < 0.020 (0.0-0.045) ng/mL Liver Function 10/08/24 Range/Units 12:14 Total Bilirubin 0.6 (0.3-1.2) mg/dL AST 35 H (0-34) U/L ALT 19 (10-49) U/L Alkaline Phosphatase 49 (46-116) U/L Albumin 4.2 (3.5-5.0) gm/dL Urine 10/08/24 Range/Units 12:49 Urine Color Yellow (Lt Yel-Yel) Urine Clarity Clear (Clear/Hazy) Urine pH 6.0 (5.0-7.0) Ur Specific Traver 1.017 (1.001-1.035) Urine Protein Negative (Neg - Trace) Urine Glucose (UA) Negative (Negative) Quality Measures Quality Measures VTE prophylaxis (Heparin) Medications Home Medications and Allergies Home Medications ?Medication ?Instructions ?Recorded ?Confirmed ?Type risperidone 2 mg tablet (Risperdal) 2 mg PO HS #0 tabs 11/21/16 11/19/23 History atenolol 25 mg tablet 25 mg PO BID 09/06/18 History duloxetine 20 mg capsule,delayed 20 mg PO BID 08/03/20 11/19/23 History release lisinopril 5 mg tablet 5 mg PO QDAY 08/03/20 History fluticasone 250 mcg-salmeterol 50 250 inh inhalation P RN PRN 11/19/23 11/19/23 History mcg/dose blistr powdr for Shortness Of Breath Or Wheez ing inhalation (Advair Diskus) Allergies Allergy/AdvReac Type Severity Reaction Status Date / Time hydrochlorothiazide AdvReac Severe pass out Verified 09/08/24 13:09 lactose AdvReac Severe DIARRHEA,GA Verified 09/08/24 13:09 S tetracycline AdvReac Severe upset Verified 09/08/24 13:09 stomach,burning Visit Medications Acetaminophen (Acetaminophen 325 Mg Tablet) 650 mg PO Q6H PRN PRN Reason: Fever >100 or pain 1-3 Stop: 11/07/24 15:29 Duloxetine HCl (Duloxetine Hcl 20 Mg Capsule) 20 mg PO BID HUEY Stop: 11/07/24 20:59 Heparin Sodium (Porcine) (Heparin Sod Inj 5000 Unit/Ml Vial) 5,000 unit SC Q12H HUEY Stop: 10/22/24 20:59 Ondansetron HCl (Ondansetron Inj 2 Mg/Ml Inj 2 Ml) 4 mg IV Q6H PRN; Protocol PRN Reason: NAUSEA OR VOMITING Stop: 11/07/24 15:29 Pantoprazole Sodium (Pantoprazole Inj 40 Mg Vial) 40 mg IVP QDAY HUEY Stop: 11/08/24 08:59 Risperidone (Risperidone 1 Mg Tablet) 2 mg PO HS HUEY Stop: 11/07/24 20:59 Fluticasone/Salmeterol (Fluticasone/Salmeterol 250/50 14 Dose Inh) 1 puff INH BIDRT PRN PRN Reason: wheezing or sob Stop: 11/07/24 18:59 Sennosides (Senna Tablet) 1 tab PO QDAY PRN; Protocol PRN Reason: constipation Stop: 11/07/24 15:29 Discontinued Medications Aspirin (Aspirin Ec 81 Mg Tabec) 81 mg PO X1 ONE Stop: 10/08/24 13:57 Last Admin: 10/08/24 14:18 Dose: 81 mg Sodium Chloride (Ns) 1,000 mls @ 999 mls/hr IV .Q1H1M ONE Stop: 10/08/24 12:28 Last Infusion: 10/08/24 14:24 Dose: Infused Assessment & Plan Plan Assessment Marilyn is a 59 y/o female with PMHx of HTN, COPD (not on home oxygen), iron deficiency anemia who is admitted for 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 #Acute CVA NIHSS score of 8 by teleneuro Stroke appears to be subacute as symptoms began about 2 to 3 days ago in which this does not allow us to give her TNK Patient has never had a stroke before Patient does have risk factors for stroke including smoking, hypertension head CT shows acute right temporal parietal occipital infarct, representing large area affected Patient will likely need further imaging and workup to characterize stroke further Plan: ? Neurology consulted, appreciate recs ? MR stroke protocol ? CT angio head neck ? Speech therapy ? PT referral ? Echo with bubble study ? Neurochecks every 4 hours ? Head of bed elevation 30 degrees ? Heparin DVT prophylaxis ? Bedrest ? ASA 81 ? Follow-up A1c, TSH, lipid panel for further cardiac stratification ? Permissive hypertension ? High intensity statin, Lipitor 80 mg #Hypertension #Hyperlipidemia Chronic Plan: ? Allowing for permissive hypertension ? Lipitor 80 mg #Iron deficiency anemia Patient required about 4 PRBCs last admission Hemoglobin is at 9 now Plan: ? Trend CBC ? Iron studies panel ? Peripheral blood smear ? Reticulocyte count ? Avoiding any NSAIDs ? Protonix 40 mg daily #? History of bipolar vs depression Chronic Plan: ?Resumed home Cymbalta 20 mg twice daily and risperidone 2 mg at bedtime #Nicotine dependence #? COPD Over [id number] smoking history Patient has never gone formal PFTs, however he does use ICS/LABA at home, does not use oxygen at home Plan: ? Nicotine patch as needed ? Advair as needed #Health Maintenance Disposition: Telemetry DVT prophylaxis: Heparin GI prophylaxis: Protonix Diet: Pending Swallow Eval CODE STATUS: DNR Patient seen and care discussed with my attending physician, Dr. José Luis Potts, PGY-1 Attending Provider Attestation/Addendum I have examined the patient, reviewed labs and imaging findings, discussed the case with the resident(s), and reviewed entered orders. I agree with the plan of care as outlined in this note, with these additional summaries/recommendations: Patient is a 59-year-old female with a medical history of COPD, primary hypertension, diabetes mellitus type 2, depression, tobacco use, and iron deficiency anemia who presented to [facility] emergency department on 10/08/2024 with chief complaint of slurred speech, left-sided weakness and neglect. Patient seen at bedside. She reports symptoms of slurred speech, left-sided weakness and neglect have been present for a few days. Patient reports she has been falling for about 2 to 3 days. In the emergency room stroke alert was initiated and NIHSS score of 8. Head CT was significant for large acute/subacute infract in right temporal, parietal, and occipital lobe. Teleneurology was consulted who recommends CTA head and neck, MRI brain, A1c, TSH, lipid panel, neurochecks every 4 hours x 24 hours, physical therapy consultation, speech therapy referral, and DVT prophylaxis. Start aspirin 81 mg p.o. daily and high intensity statin. Consult in-house neurology, recommendations appreciated. Echocardiogram with bubble study. Insulin sliding scale for diabetes mellitus type 2. Cardiac diet. Breathing treatments as needed for COPD. Patient does have a history of symptomatic anemia requiring blood transfusions and previous colonoscopy plus EGD were unrevealing for source. Iron panel was suggestive of severe iron deficiency anemia and unclear if patient has been taking iron supplements. We will continue to monitor for any signs of acute bleeding. Continue all other home medications as tolerated. Please see residents note for additional details and management. All questions answered to satisfaction. Dr. José Luis MD
--- NOTE | 2024-10-08 15:52 | XR_ITS ---
Examination: CTA carotids with intravenous contrast CTA brain, head with intravenous contrast. 2-D sagittal, coronal reconstructions. 3-D reconstructions. Exam date and time: October 08, 2024 at 1719 hours INDICATIONS: Altered mental status, patient fell today, CT brain scan October 08, 2024 1147 hours large low density area in the right temporal occipital posterior parietal lobe most consistent with acute infarct CTDI: vol (mGy) 32.2 DLP: (mGycm) 435 Technique: Multiple CTA axial brain, head carotid images post intravenous contrast injection 100 cc, [id number]. 2-D sagittal, coronal reconstructions. 3-D reconstructions, 3-D post processing including vascular maximum intensity projection images. Low dose protocols were performed. One or more of the following dose reduction techniques were used; automated exposure control, adjustment of the mA and/or KV according to patient size, use of iterative reconstruction technique. Findings: No significant common carotid carotid bifurcation or internal carotid artery stenoses Codominant vertebral arteries with no critical stenoses Intracranial vertebral arteries artery posterior cerebral branches do fill There is occlusion of multiple right middle cerebral artery trifurcation branches The M1 segment of the right middle cerebral artery does fill The M1 segment left middle cerebral artery and left middle cerebral artery trifurcation vessels fill as well as anterior cerebral arteries IMPRESSION: No significant neck arterial stenoses There are occlusions of multiple right middle cerebral artery trifurcation branches
--- NOTE | 2024-10-08 17:05 | PC.NURSE ---
DR. POOLE, NUEROLOGY RESIDENT AT BEDSIDE TO SEE PT
--- NOTE | 2024-10-08 17:12 | PC.NURSE ---
PT TO CT
--- NOTE | 2024-10-08 17:14 | PD.RESCONSUL ---
HPI Data of Consult Requesting Physician: Jacoby Potts MD Admitting Provider: Misha Ordonez MD Attending Provider: Jacoby Potts MD Primary Care Provider: TABBY Chou Consult Narrative Reason for consult: slurred speech, ground level falls, general weakness History of present illness: The patient is a 59-year-old female with previous medical history of hypertension, COPD not on home oxygen, iron deficiency anemia, type 2 diabetes, depression who was brought in by ambulance due to slurred speech, general weakness, ground-level falls. Patient reports symptoms started approximately 4 days ago, denies head trauma, denies loss of consciousness, denies previous history of strokes. Head CT showed large infarct in the right temporoparietal occipital lobe. Teleneuro was consulted, NIHSS was 8. Admission was recommended for large subacute stroke workup. ED course: Blood pressure 126/73, heart rate 101, respiratory rate 18, afebrile, saturating well on room air. Hemoglobin 9.0, hematocrit 30.1, platelets 264, INR 1.0. Sodium 139, potassium 3.8, creatinine 0.6, EGFR more than 60 ammonia 10, troponin I negative twice. UA was negative for signs of UTI. Neurology was consulted for subacute stroke workup and management. Social history: Patient reports living alone, former smoker, denies drinking alcohol and recreational substances use. Surgery: Cataract surgery Medications: Med rec pending Allergies: Hydrochlorothiazide, tetracycline cc:: cc: Jacoby Potts MD Review of Systems Review of Systems Systems Reviewed: All systems reviewed, normal except as documented Past Medical History Past Medical History NEUROLOGIC: Negative Neurological Disorders, Cerebrovascular Accident, Transient Ischemic Attacks (TIA), Dementia, Alzheimer's Disease, Parkinson's Disease, Brain Tumor, Meningitis, Seizures, Epilepsy, Multiple Sclerosis, Cerebral Palsy, Amyotrophic Lateral Sclerosis (ALS/Taty Gehrig's), Guillain-Nodaway Syndrome, Spina Bifida, Paralysis, Peripheral Neuropathy, Agee's Palsy, Subdural Hematoma, Migraine, Head Trauma, Spinal Cord Injury or Traumatic Brain Injury CARDIAC: Positive Hypertension; Negative Cardiac Disorders, Myocardial Infarction, Cardiac Arrhythmia, Atrial Fibrillation, Angina, Heart Murmur, Coronary Artery Disease, Atherosclerotic Heart Disease, Peripheral Vascular Disease, Hypercholesterolemia, Aneurysm, Congestive Heart Failure, Congenital Heart Disease, Valvular Heart Disease, Rheumatic Fever, Cardiomyopathy, Edema, Pericarditis, Cellulitis, Deep Vein Thrombosis, Hypotension or Varicose Veins RESPIRATORY: Positive Chronic Obstructive Pulmonary Disease (COPD); Negative Asthma, Bronchitis, Emphysema, Pneumonia, Pulmonary Fibrosis, Cystic Fibrosis, Tuberculosis, Pulmonary Embolism, Pulmonary Edema or Sleep Apnea GASTROINTESTINAL: Positive Gastrointestinal Disorders and Diverticulitis; Negative Hepatitis, Cirrhosis, Pancreatitis, Celiac Disease, Gall Bladder Disease, Gastrointestinal Bleed, Esophageal Varices, Villa's Esophagus, Colitis, Ulcerative Colitis, Diverticulosis, Ulcer, Colorectal Cancer, Irritable Bowel, Crohn's Disease, Obstructive Bowel, Hiatal Hernia, Hemorrhoids, Gastroesophageal Reflux Disease or Obesity GENITOURINARY: Negative Genitourinary Disorders, Renal Disease, Kidney Stones, Polycystic Kidney Disease, Neurogenic Bladder, Inguinal Hernia, Dialysis, Prostate Cancer or Benign Prostatic Hyperplasia REPRODUCTIVE: Positive Previous Pregnancies; Negative Breast Cancer, Endometriosis, Pelvic Inflammatory Disease, Testicular Cancer or Uterine Prolapse MUSCULOSKELETAL: Positive Musculoskeletal Disorders, Arthritis and Osteoporosis; Negative Muscular Dystrophy, Myasthenia Gravis, Marfan's Syndrome, Bone Cancer, Rheumatoid Arthritis, Degenerative Disk Disease, Gout, Scoliosis, Carpal Tunnel Syndrome, Fibromyalgia, Fractures, Degenerative Joint Disease, Osteomyelitis or Poliovirus ENT: Positive Retinal Detachment and Ear Infection; Negative Cataracts, Glaucoma, Blind, Macular Degeneration, Deafness, Head Trauma or Eye Prosthesis ENDOCRINE: Positive Diabetes Mellitus Type 2; Negative Endocrine Disorders, Diabetes Mellitus Type 1, Hypoglycemia, Wayland's Syndrome, Joel's Disease, Hyperthyroidism, Hypothyroidism, Parathyroid Disease, Pituitary Disease, Systemic Lupus Erythematosus, Syndrome of Inappropriate Antidiuretic Hormone (SIADH), Adrenal Disease or Graves' Disease HEMATOLOGIC: Negative Blood Disorders, Anemia, Leukemia, Hemophilia, Thalassemia, Sickle Cell Disease or Clotting Problems PSYCHO/SOCIAL: Negative Psychiatric Problems, Schizophrenia, Recreational Drug Use, Bipolar Disorder, Depression, Anxiety, Behavior Problems, Self-Mutilation, Attention Deficit Disorder, Attention Deficit Hyperactivity Disorder, Depression, Post Traumatic Stress Disorder or Eating Disorder OTHER HISTORY: Positive Hospitalization, Blood Transfusions, MRSA and Chicken Pox; Negative Autoimmune Disease, Down Syndrome, Autism, Developmental Delay, Shingles, Falls, Blood Transfusion Reaction, Anesthesia Reactions, Organ Transplant, Chemotherapy, Radiation Therapy, Hyperbaric Therapy, VRSA, Vancomycin-Resistant Enterococci, Human Immunodeficiency Virus (HIV), Measles, Mumps, Rubella ([place] Measles), Pertussis, Clostridium Difficile, Cancer, Breast Cancer, Cervical Cancer, Colorectal Cancer, Lung Cancer, Ovarian Cancer, Prostate Cancer or Testicular Cancer Family History FAMILY HISTORY: Positive Family Psychiatric Problems, Family Cardiac Disorders, Family Gastrointestinal Problems, Family Cancer and Family Surgery; Negative Family Respiratory Disorders or Family Anesthesia Reaction Surgical History SURGICAL: Positive Tonsillectomy and Joint Replacement (L knee); Negative Cardiac Surgery, Open Heart Surgery, Coronary Artery Bypass Graft, Valve Replacement, Vascular Surgery, Coronary Stent, Cardiac Catheterization, Pacemaker, Angiogram, Auto Implanted Cardiovert Defib, Carotid Endarterectomy, Endocrine Surgery, Thyroidectomy, Ear Surgery, Tympanostomy Tube, Eye Surgery, Nose Surgery, Oral Surgery, Adenoidectomy, Cochlear Implant, Corneal Transplant, Throat Surgery, Abdominal Surgery, Tracheostomy, Gastric Bypass Surgery, Gastrostomy, Bowel Surgery, Nephrectomy, Transurethral Resection, Amputation, Open Reduction Internal Fixation, Arthroscopy, Neurologic Surgery, Brain Shunt, Mastectomy, Lumpectomy, Hysterectomy, Tubal Ligation, Section or Organ Transplant Social History SMOKING STATUS: Current every day smoker Exam Vital Signs Temp Pulse Resp BP Pulse Ox O2 Del Method 97.5 F 85 18 138/75 H 99 Room Air 10/08/24 16:16 10/08/24 16:16 10/08/24 16:16 10/08/24 16:16 10/08/24 16:16 10/08/24 16:16 Narrative Exam Gen: Disheveled unkempt female. HEENT: NCAT, PERRLA, EOMI, MMM, anicteric conjunctivae. CVS: normal S1 and S2. RRR. No M/R/G. Resp: CTA B/L. No rhonchi, rales, crackles or wheezing. Abd: soft, non-tender, non-distended. BS+ in all 4 quadrants. MSK: Good ROM in BUE & BLE. No edema or rash. Neuro: Left sided lower facial droop. Strength 5/5 in RUE & RLE, strength 4/5 in LUE, LLE. Dysarthria. Tendon reflexes equal, 1+, Babinski negative bilaterally. Alert and oriented x3. Psych: appropriate mood and affect. Results Labs 10/08/24 12:14 10/08/24 12:14 Labs: Short CBC 10/08/24 Range/Units 12:14 WBC 6.3 (3.6-11.0) Thou/mm3 Hgb 9.0 L (12.0-16.0) g/dL Hct 30.1 L (36.0-46.0) % Plt Count 264 D (140-440) Thou/mm3 BMP 10/08/24 12:14 Sodium 139 Potassium 3.8 Chloride 105 Carbon Dioxide 24.6 BUN 9 Creatinine 0.6 Glucose 99 Calcium 9.3 Cardiac Enzymes 10/08/24 Range/Units 12:14 Total Creatine Kinase 186 H (34-171) U/L Troponin I < 0.020 (0.0-0.045) ng/mL Liver Function 10/08/24 Range/Units 12:14 Total Bilirubin 0.6 (0.3-1.2) mg/dL AST 35 H (0-34) U/L ALT 19 (10-49) U/L Alkaline Phosphatase 49 (46-116) U/L Albumin 4.2 (3.5-5.0) gm/dL Urine 10/08/24 Range/Units 12:49 Urine Color Yellow (Lt Yel-Yel) Urine Clarity Clear (Clear/Hazy) Urine pH 6.0 (5.0-7.0) Ur Specific [place] 1.017 (1.001-1.035) Urine Protein Negative (Neg - Trace) Urine Glucose (UA) Negative (Negative) Quality Measures Quality Measures VTE prophylaxis (Heparin) Medications Home Medications and Allergies Home Medications ?Medication ?Instructions ?Recorded ?Confirmed ?Type risperidone 2 mg tablet (Risperdal) 2 mg PO HS #0 tabs 11/21/16 11/19/23 History atenolol 25 mg tablet 25 mg PO BID 09/06/18 11/19/23 History duloxetine 20 mg capsule,delayed 20 mg PO BID 08/03/20 11/19/23 History release lisinopril 5 mg tablet 5 mg PO QDAY 08/03/20 11/19/23 History fluticasone 250 mcg-salmeterol 50 250 inh inhalation PRN PRN 11/19/23 11/19/23 History mcg/dose blistr powdr for Shortness Of Breath Or Wheezing inhalation (Advair Diskus) Allergies Allergy/AdvReac Type Severity Reaction Status Date / Time hydrochlorothiazide AdvReac Severe pass out Verified 09/08/24 13:09 lactose AdvReac Severe DIARRHEA,GA Verified 09/08/24 13:09 S tetracycline AdvReac Severe upset Verified 09/08/24 13:09 stomach,burning Visit Medications Acetaminophen (Acetaminophen 325 Mg Tablet) 650 mg PO Q6H PRN PRN Reason: Fever >100 or pain 1-3 Stop: 11/07/24 15:29 Atorvastatin Calcium (Atorvastatin Calcium 20 Mg Tablet) 80 mg PO HS HUEY Stop: 11/07/24 20:59 Duloxetine HCl (Duloxetine Hcl 20 Mg Capsule) 20 mg PO BID HUEY Stop: 11/07/24 20:59 Heparin Sodium (Porcine) (Heparin Sod Inj 5000 Unit/Ml Vial) 5,000 unit SC Q12H HUEY Stop: 10/22/24 20:59 Nicotine (Nicotine Patch 7 Mg/24 Hr Patch.Td24) 7 mg TOP QDAY PRN PRN Reason: As needed for nicotine craving Stop: 11/07/24 16:29 Ondansetron HCl (Ondansetron Inj 2 Mg/Ml Inj 2 Ml) 4 mg IV Q6H PRN; Protocol PRN Reason: NAUSEA OR VOMITING Stop: 11/07/24 15:29 Pantoprazole Sodium (Pantoprazole Inj 40 Mg Vial) 40 mg IVP QDAY HUEY Stop: 11/08/24 08:59 Risperidone (Risperidone 1 Mg Tablet) 2 mg PO HS HUEY Stop: 11/07/24 20:59 Sennosides (Senna Tablet) 1 tab PO QDAY PRN; Protocol PRN Reason: constipation Stop: 11/07/24 15:29 Discontinued Medications Aspirin (Aspirin Ec 81 Mg Tabec) 81 mg PO X1 ONE Stop: 10/08/24 13:57 Last Admin: 10/08/24 14:18 Dose: 81 mg Sodium Chloride (Ns) 1,000 mls @ 999 mls/hr IV .Q1H1M ONE Stop: 10/08/24 12:28 Last Infusion: 10/08/24 14:24 Dose: Infused Fluticasone/Salmeterol (Fluticasone/Salmeterol 250/50 14 Dose Inh) 1 puff INH BIDRT PRN PRN Reason: wheezing or sob Stop: 11/07/24 18:59 Assessment & Plan Plan The patient is a 59-year-old female with previous medical history of hypertension, COPD not on home oxygen, iron deficiency anemia, type 2 diabetes, depression who was brought in by ambulance due to slurred speech, general weakness, ground-level falls. #Subacute stroke #Posterior stroke Patient started to experience symptoms [address] head showed large infarct in the right temporoparietal occipital lobe. Plan: - Aspirin 81 mg qday - Repeat MRI, if not available CTA head and neck tomorrow for control ?Lipid panel, A1c ? Atorvastatin 80 mg daily ? Euglycemia normothermia ? Telemetry ? Head of bed 30 degrees elevation ? Neurochecks every 4 hours ? Speech therapy evaluation, physical therapy evaluation -permissive hypertension -dvt prophylaxis #Hypertension #Hyperlipidemia #Iron deficiency anemia #? History of bipolar vs depression #Nicotine dependence #? COPD - management per primary team Plan of care discussed with attending Dr. Kaiser. Ena Stanton MD, PGY 1. Attending Provider Attestation/Addendum I personally seen and examined the patient at the bedside I agree with resident's findings, assessment and plan of care. She does have significant left hemiparesis in the face upper and lower extremities. CT head and MRI brain are consistent with acute ischemic infarction involving the right middle cerebral artery territory without any significant hemorrhagic transformation. Will continue with statin and aspirin, add Plavix in [address] head to rule out hemorrhagic transformation. Follow-up with rest of the stroke workup continue monitoring for any changes in neuroexam, physical therapy and Occupational Therapy as tolerated
--- NOTE | 2024-10-08 18:16 | PC.NURSE ---
report called to Ivonne on tele floor. pt to go to room 261
--- NOTE | 2024-10-08 18:45 | PC.NURSE ---
pt arrived from MRI at 1845. Pt VS stable upon arrival and focused neuro assessment stable upon arrival. Unable to complete admission assessments or NIHSS. Report given to Veronica RENTERIA and informed of NIHSS.
[2024-10-08] MEDS: ATORVASTATIN CALCIUM 20 MG TABLET 80 MG PO (20:46)
[2024-10-08] MEDS: HEPARIN SOD INJ 5000 UNIT/ML VIAL SC (20:47)
[2024-10-08] MEDS: risperiDONE 1 MG TABLET 2 MG PO (20:47)
[2024-10-08] MEDS: DULoxetine HCL 20 MG CAPSULE PO (20:47)
[2024-10-08 23:21] LABS: Amphetamine/Methamp Scrn,U Negative (Negative); Barbiturate Screen,Urine Negative (Negative); Benzodiazepines Screen,Urine Negative (Negative); Benzoylecgonine Screen, Ur Negative (Negative); Fentanyl Screen,Urine Negative (Negative); Opiate Screen,Urine Negative (Negative); THC Screen,Urine Negative (Negative)
[2024-10-09] VITALS: BP 154/62; PULSE 124; PULSE 99; RESP 24; TEMP 36.3; O2SAT 91
[2024-10-09 04:00] VITALS: BP 146/63; PULSE 105; PULSE 97; RESP 20; TEMP 36.5; O2SAT 92
[2024-10-09 05:39] VITALS: BMI 29.2
[2024-10-09 06:08] LABS: Basophils % (Auto) 1 % (0-2.5); Eosinophils % (Auto) 1 % (0-10); Hematocrit 26.9 % (36.0-46.0); Immature Granulocytes % (Auto) 0 % (0-0); Immature Granulocytes Auto 0.01 Thou/mm3 (0.00-0.00); Immature Reticulocyte Fraction 27.9 % (3.0-15.9); Lymphocytes # (Auto) 0.5 Thou/mm3 (1.0-4.8); Lymphocytes % (Auto) 13 % (10-50); Mean Corpuscular HGB Conc 30.1 g/dl (31.0-37.0); Mean Corpuscular Hemoglobin 21.1 pg (25.0-35.0); Mean Corpuscular Volume 70 fL (80-100); Monocytes # (Auto) 0.4 Thou/mm3 (0.0-0.8); Monocytes % (Auto) 11 % (0-12); Neutrophils % (Auto) 75 % (37-80); Nucleated Red Blood Cell % 0 /100 WBC (0); Platelet Count 246 Thou/mm3 (140-440); RDW Standard Deviation 51.4 fL (36.4-46.3); Red Blood Count 3.84 Miln/mm3 (4.00-5.20); Reticulocyte % (Auto) 1.1 % (0.5-1.5); Reticulocyte Absolute Auto 43.4 Biln/L (25.0-75.0); Reticulocyte Hgb Content 20.4 pg (28.0-35.0)
[2024-10-09 06:17] LABS: Hemoglobin 8.1 g/dL (12.0-16.0)
[2024-10-09 06:32] LABS: Iron 10 mcg/dL (50-170); Percent Iron Saturation 3 % (20-55); Total Iron Binding Capacity 310 mcg/dL (250-425); Unsaturated Iron Binding 300 (225-295)
[2024-10-09 06:36] LABS: Alanine Aminotransferase 15 U/L (10-49); Albumin, Serum 3.7 gm/dL (3.5-5.0); Albumin/Globulin Ratio 1.4 (1.2-2.2); Alkaline Phosphatase 43 U/L (46-116); Anion Gap 8 (7-16); Aspartate Amino Transferase 30 U/L (0-34); BUN/Creatinine Ratio 14 Ratio (12-20); Bilirubin,Total 0.5 mg/dL (0.3-1.2); Blood Urea Nitrogen 7 mg/dL (9-23); Calcium 8.2 mg/dL (8.3-10.6); Calcium (Corrected) 8.4 mg/dL (8.5-10.1); Carbon Dioxide 22.9 mMol/L (20.0-31.0); Cardiac Risk Estimate 2.3 RATIO (3.7-5.6); Chloride 109 mMol/L (98-107); Cholesterol 89 mg/dL (132-200); Creatinine (Component) 0.5 mg/dL (0.6-1.3); Estimated Creatinine Clearance 112.9 mL/min (>60); Globulin 2.7 gm/dL (2.3-3.5); Glucose 80 mg/dL (74-106); HDL Cholesterol 39 mg/dL (40-60); LDL Cholesterol,Calculated 39 mg/dL (0-130); Magnesium 1.6 mg/dL (1.6-2.6); Osmolality,Calculated 276 (275-295); Phosphorous 3.7 mg/dL (2.4-5.1); Potassium 3.5 mMol/L (3.4-5.1); Sodium 140 mMol/L (136-145); Thyroid Stimulating Hormone 0.77 uIU/mL (0.55-4.78); Total Protein 6.4 gm/dL (5.7-8.2); Triglycerides 53 mg/dL (30-150); eGFR > 60 See Note
[2024-10-09 06:55] LABS: Partial Thromboplastin Time 24.3 Seconds (22.0-36.0); Prothrombin Time 11.2 Seconds (9.0-12.2)
[2024-10-09 07:09] LABS: Path Review Blood Smear Sent to Pathologist
--- NOTE | 2024-10-09 07:28 | PC.NURSE ---
Per pt. reported history of diabetes, no glucose checks ordered at this time. Bedside glucose checked and resulted 85, however pt. is NPO due to two failed swallow screens and pending ST evaluation. RN called to ST at ext [phone] Potts aware and agrees to order bedside checks and IV fluids for now.
--- NOTE | 2024-10-09 07:40 | PC.NURSE ---
Called to speech therapy x2 and no answer, no way to leave a voicemail.
[2024-10-09 08:00] VITALS: BP 132/70; PULSE 107; PULSE 84; RESP 19; TEMP 36.4; O2SAT 93
[2024-10-09] MEDS: PANTOPRAZOLE INJ 40 MG VIAL IVP (08:19)
[2024-10-09] MEDS: SODIUM CHLORIDE 0.9% 1000 ML 1,000 ML 50 ML IV (08:19)
--- NOTE | 2024-10-09 09:43 | XR_ITS ---
Examination: CT brain head without contrast. 2-D sagittal coronal reconstructions Date and time of exam:October 09, 2024 1128 hours Comparison October 08, 2024 INDICATIONS: Large acute infarct right temporoparietal occipital lobe on CT brain scan October 08, 2024, clinical diagnosis hemorrhagic conversion CTDI: vol (mGy):49.2, DLP: (mGycm):990 Technique: Multiple CT axial sections of the brain have been obtained, 5 mm slice thickness. Contrast has not been administered. 2-D sagittal, coronal reconstructions have been obtained Low dose protocols were performed. One or more of the following dose reduction techniques were used; automated exposure control, adjustment of the mA and/or KV according to patient size, use of iterative reconstruction technique. Findings: Large acute infarct right posterior temporal right occipital right parietal lobe No definite hemorrhagic conversion on the CT examination No significant mass effect Cranial vault intact IMPRESSION: Large acute infarct right posterior temporal right occipital right parietal lobe No definite hemorrhagic conversion on this CT examination
--- NOTE | 2024-10-09 09:46 | ESPR_ITS ---
<Statement entered by Simone Thurman MD - 10/10/24 06:52> Patient was seen and examined at bedside. I agree on most of the assessment and plan of this patient. - Patient's plan and care discussed with my attending, Dr. José Luis Thurman MD Internal Medicine PGY-2 Documentation for date of: 10/09/24 Subjective Subjective Interval history: Patient examined at bedside today. No acute overnight events. She reports that she feels like her symptoms are the same and still's feel a bit weak. She is wondering when she is going to be able to eat. She is not having a headache at this time or has vomited. She has not had a bowel movement yet today. She reiterates that she lives home alone, wants to take care of herself including living for herself as well. She has no other complaints at this time Exam Vital Signs Temp Pulse Resp BP Pulse Ox O2 Del Method 97.5 F 107 H 19 132/70 H 93 L Room Air 10/09/24 08:00 10/09/24 08:00 10/09/24 08:00 10/09/24 08:00 10/09/24 08:00 10/09/24 08:00 Narrative Exam General: AAOx3, NAD, female, looks older than she is, looks a bit unkempt HEENT: Dry mucous membranes, conjunctiva clear, EOMI, PERRLA, poor dentition Cardiovascular: S1, S2, radial pulses +2 bilat, RRR Pulmonary: CTAB bilat no cough, no wheezing GI: No tenderness to light or deep palpitation, no guarding, rigidity, rebound tenderness or distension Extremities: No presence of trace or pitting edema in lower extremities bilaterally, dorsalis pedis pulses +2 bilaterally Neuro: AAOx3, appears to have some left arm weakness in upper extremity, possible some left side facial droop, pupillary reflex intact bilaterally, able to follow most commands, however this weakness is worse than yesterday Psych: Able to cooperate Objective Labs 10/10/24 06:33 10/09/24 05:25 Labs: Laboratory Results - last 24 hr 10/08/24 10/08/24 10/08/24 12:14 12:49 20:35 WBC 6.3 RBC 4.29 Hgb 9.0 L Hct 30.1 L MCV 70 L MCH 21.0 L MCHC 29.9 L RDW Std Deviation 52.5 H Plt Count 264 D Neut % (Auto) 85 H Lymph % (Auto) 7 L [place] % (Auto) 8 Eos % (Auto) 0 Baso % (Auto) 0 Neut # (Auto) 5.3 Lymph # (Auto) 0.4 L [place] # (Auto) 0.5 Eos # (Auto) 0.0 Baso # (Auto) 0.0 Immature Gran # (Auto) 0.02 H Absolute Nucleated RBC 0.00 Immature Gran % 0 Nucleated RBC % 0 Smear Path Review Retic Count (auto) Absolute Retic Immature Retic Fraction Retic Hgb Content CHr PT 11.0 INR 1.0 APTT 22.9 Sodium 139 Potassium 3.8 Chloride 105 Carbon Dioxide 24.6 Anion Gap 9 BUN 9 Creatinine 0.6 Estim Creat Clear Calc 91.3 eGFR > 60 BUN/Creatinine Ratio [address] Glu mg/dL 97 Hemoglobin A1c 5.0 Calculated Osmolality 276 Calcium 9.3 Corrected Calcium 9.3 Phosphorus Magnesium Iron TIBC Iron Saturation Unsat Iron Binding Total Bilirubin 0.6 AST 35 H ALT 19 Alkaline Phosphatase 49 Ammonia 10 L Total Creatine Kinase 186 H Troponin I < 0.020 B-Natriuretic Peptide < 20 Total Protein 7.3 Albumin 4.2 Globulin 3.1 Albumin/Globulin Ratio 1.4 Triglycerides Cholesterol LDL Cholesterol, Calc HDL Cholesterol Cholesterol/HDL Ratio TSH Ur Collection Type Clean Catch Urine Color Yellow Urine Clarity Clear Urine pH 6.0 Ur Specific [place] 1.017 Urine Protein Negative Urine Glucose (UA) Negative Urine Ketones 2+ A Urine Blood Negative Urine Nitrite Negative Urine Bilirubin Negative Urine Urobilinogen (Auto) Negative Ur Leukocyte Esterase Negative Urine RBC 3 Urine WBC 1 Ur Squamous Epith Cells < 1 Urine Bacteria None Ur Culture Indicated? Not Indicated Urine Opiates Screen Negative Urine Fentanyl Screen Negative Ur Barbiturates Screen Negative U Amphetamin/Meth Scrn Negative U Benzodiazepines Scrn Negative U Cocaine Metab Screen Negative U Marijuana (THC) Screen Negative 10/09/24 05:25 WBC 4.0 RBC 3.84 L Hgb 8.1 L Hct 26.9 L MCV 70 L MCH 21.1 L MCHC 30.1 L RDW Std Deviation 51.4 H Plt Count 246 Neut % (Auto) 75 Lymph % (Auto) 13 [place] % (Auto) 11 Eos % (Auto) 1 Baso % (Auto) 1 Neut # (Auto) 3.0 Lymph # (Auto) 0.5 L [place] # (Auto) 0.4 Eos # (Auto) 0.0 Baso # (Auto) 0.0 Immature Gran # (Auto) 0.01 H Absolute Nucleated RBC 0.00 Immature Gran % 0 Nucleated RBC % 0 Smear Path Review Sent to Pathologist Retic Count (auto) 1.1 Absolute Retic 43.4 Immature Retic Fraction 27.9 H Retic Hgb Content CHr 20.4 L PT 11.2 INR 1.0 APTT 24.3 Sodium 140 Potassium 3.5 Chloride 109 H Carbon Dioxide 22.9 Anion Gap 8 BUN 7 L Creatinine 0.5 L Estim Creat Clear Calc 112.9 eGFR > 60 BUN/Creatinine Ratio [address] Glu mg/dL Hemoglobin A1c Calculated Osmolality 276 Calcium 8.2 L Corrected Calcium 8.4 L Phosphorus 3.7 Magnesium 1.6 Iron 10 L TIBC 310 Iron Saturation 3 L Unsat Iron Binding 300 H Total Bilirubin 0.5 AST 30 ALT 15 Alkaline Phosphatase 43 L [place] Total Creatine Kinase Troponin I B-Natriuretic Peptide Total Protein 6.4 Albumin 3.7 D Globulin 2.7 Albumin/Globulin Ratio 1.4 Triglycerides 53 Cholesterol 89 L LDL Cholesterol, Calc 39 HDL Cholesterol 39 L Cholesterol/HDL Ratio 2.3 L TSH 0.77 Ur Collection Type Urine Color Urine Clarity Urine pH Ur Specific [place] Urine Protein Urine Glucose (UA) Urine Ketones Urine Blood Urine Nitrite Urine Bilirubin Urine Urobilinogen (Auto) Ur Leukocyte Esterase Urine RBC Urine WBC Ur Squamous Epith Cells Urine Bacteria Ur Culture Indicated? Urine Opiates Screen Urine Fentanyl Screen Ur Barbiturates Screen U Amphetamin/Meth Scrn U Benzodiazepines Scrn U Cocaine Metab Screen U Marijuana (THC) Screen Quality Measures Quality Measures none Assessment & Plan Assessment Current Active Medications: Generic Name Dose Route Start Last Admin Trade Name Freq PRN Reason Stop Dose Admin Acetaminophen 650 mg 10/08/24 15:30 Acetaminophen 325 Mg Tablet PO 11/07/24 15:29 Q6H PRN Fever >100 or pain 1-3 Atorvastatin Calcium 80 mg 10/08/24 21:00 10/08/24 20:46 Atorvastatin Calcium 20 Mg Tablet PO 11/07/24 20:59 80 mg HS HUEY Administration Dextrose 25 ml 10/09/24 07:29 Dextrose 50%-Water Inj 50 Ml Syringe IV 11/08/24 07:28 Q15MIN PRN BG 50-70 responsive npo pt Dextrose 50 ml 10/09/24 07:29 Dextrose 50%-Water Inj 50 Ml Syringe IV 11/08/24 07:28 Q15MIN PRN BG <50 OR BG <70 & pt unresponsive Duloxetine HCl 20 mg 10/08/24 21:00 10/09/24 08:18 Duloxetine Hcl 20 Mg Capsule PO 11/07/24 20:59 Not Given BID HUEY Glucagon 1 mg 10/09/24 07:29 Glucagon Inj 1 Mg Vial IM Q15MIN PRN BG <70, and no IV access Sodium Chloride 1,000 mls @ 50 mls/hr 10/09/24 07:32 10/09/24 08:19 Ns IV 11/08/24 07:31 50 mls/hr .Q20H HUEY Administration Nicotine 7 mg 10/08/24 16:27 Nicotine Patch 7 Mg/24 Hr Patch.Td24 TOP 11/07/24 16:29 QDAY PRN As needed for nicotine craving Ondansetron HCl 4 mg 10/08/24 15:30 Ondansetron Inj 2 Mg/Ml Inj 2 Ml IV 11/07/24 15:29 Q6H PRN NAUSEA OR VOMITING Protocol Pantoprazole Sodium 40 mg 10/09/24 09:00 10/09/24 08:19 Pantoprazole Inj 40 Mg Vial IVP 11/08/24 08:59 40 mg QDAY HUEY Administration Risperidone 2 mg 10/08/24 21:00 10/08/24 20:47 Risperidone 1 Mg Tablet PO 11/07/24 20:59 2 mg HS HUEY Administration Sennosides 1 tab 10/08/24 15:30 Senna Tablet PO 11/07/24 15:29 QDAY PRN constipation Protocol Plan Assessment Marilyn is a 59 y/o female with PMHx of HTN, COPD (not on home oxygen), iron deficiency anemia who is admitted for 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 #Acute CVA NIHSS score of 8 by teleneuro Stroke appears to be subacute as symptoms began about 2 to 3 days ago in which this does not allow us to give her TNK Patient has never had a stroke before Patient does have risk factors for stroke including smoking, hypertension head CT shows acute right temporal parietal occipital infarct, representing large area affected Patient will likely need further imaging and workup to characterize stroke further MRI shows right acute infarct with possible minimal hemorrhagic transformation in the right temporal occipital parietal lobe Head neck CTA shows multiple occlusions of the right MCA branches Due to patient having increased weakness compared to yesterday, we are concerned for hemorrhagic conversion and we will reorder imaging Repeat head CT appeared to show no transformation of stroke Spoke with neurology team who recommends to resume aspirin at this time Patient was seen by speech after she failed bedside eval recommends dysphagia 2 diet A1c 5.0, TSH 0.77, Free T4 1.79, LDL 39 Plan: ? Neurology consulted, appreciate recs ? Continue with PT referral ? Echo with bubble study ? Neurochecks every 4 hours ? Head of bed elevation 45 degrees ? SCDs ? Bedrest ? ASA 81 milligrams every day ? Follow-up A1c, TSH, lipid panel for further cardiac stratification ? Permissive hypertension ? High intensity statin, Lipitor 80 mg #Hypertension #Hyperlipidemia Chronic Plan: ? Allowing for permissive hypertension ? Lipitor 80 mg #Iron deficiency anemia Patient required about 4 PRBCs last admission Hemoglobin 8 today Iron and ferritin 10 and 2 respectively Reticulocyte count unremarkable Plan: ? Trend CBC ? Follow-up peripheral blood smear ? Avoiding any NSAIDs ? Protonix 40 mg daily ? Follow-up FOBT #? History of bipolar vs depression Chronic Plan: ?Resumed home Cymbalta 20 mg twice daily and risperidone 2 mg at bedtime #Nicotine dependence #? COPD Over [id number] smoking history Patient has never gone formal PFTs, however he does use ICS/LABA at home, does not use oxygen at home Plan: ? Nicotine patch as needed ? Advair as needed #Failure to thrive Concern for patient not being able to carry out adult living activities, lives alone, was also found covered in feces prior to arrival May need to consider SNF moving forward I spoke with family who lives in [place], Kamilah of the daughter, who was inquiring on coming as she wants to know how serious her mother's condition was It was reiterated to Danya that although the patient is hemodynamically stable at this time, considering her stroke history she is at high risk for hemodynamic compromise at any moment including hemorrhagic conversion Her daughter states that she will hold on visiting at this time Plan: ? patient services technician referral #Health Maintenance Disposition: Telemetry DVT prophylaxis: SCDs GI prophylaxis: Protonix Diet: Dysphagia 2 CODE STATUS: DNR Patient seen and care discussed with my attending physician, Dr. Ordonez and my senior resident, Dr. Cuca Potts, PGY-1 Attending Provider Attestation/Addendum I have examined the patient, reviewed labs and imaging findings, discussed the case with the resident(s), and reviewed entered orders. I agree with the plan of care as outlined in this note, with these additional summaries/recommendations: Patient seen at bedside. No acute overnight events. Patient reports her symptoms are relatively unchanged from admission and left upper extremity weakness may be slightly worse. Patient completed MRI brain which confirmed large acute infract with possible minimal hemorrhagic transformation in the right temporal, occipital, and posterior parietal lobe. Case discussed with in- house neurology. We will hold aspirin for now and repeat CT head. If no hemorrhagic conversion seen on CT will discuss resuming aspirin with neurology. Pending physical therapy evaluation and echocardiogram with bubble study. Continue to control vascular risk factors. LDL well-controlled at 39 and continue statin therapy. A1c within normal limits. Patient has history of iron deficiency anemia. Hemoglobin did downtrend to 8.1 from 9.0 yesterday although no evidence of acute bleeding. We will obtain FOBT and consult gastroenterology if positive. Patient updated on the plan and agreement. All questions answered to satisfaction. Please see residents note for additional details of management. Dr. José Luis MD
[2024-10-09 10:33] LABS: Free T4 (Free Thyroxine) 1.49 ng/dL (0.89-1.76)
[2024-10-09 12:00] VITALS: BP 126/69; PULSE 102; PULSE 81; RESP 20; TEMP 36.3; O2SAT 94
[2024-10-09 14:52] VITALS: BMI 13.0
[2024-10-09 16:00] VITALS: BP 151/76; PULSE 93; PULSE 94; RESP 20; TEMP 36.3; O2SAT 94
[2024-10-09] MEDS: ACETAMINOPHEN 325 MG TABLET 650 MG PO (16:41)
[2024-10-09] MEDS: ASPIRIN EC 81 MG TABEC PO (16:42)
--- NOTE | 2024-10-09 17:55 | PC.NURSE ---
Pt. changed point of contact to Dtr Kamilah. Spoke to daughter on the phone and provided update. When explaining to daughter what was going on, daughter stated well yeah obviously I could tell that already. Kamilah asked to speak to DrLisa, Dr. Ma provided with Kamilah phone number and was asked to call and talk to the daughter. Kamilah (pt. dtr) states I live in [place], should I fly out there or what? Rn explained that that is a personal decision and pt. is stable at the moment.
[2024-10-09 20:00] VITALS: BP 151/80; PULSE 79; PULSE 84; RESP 28; TEMP 36.2; O2SAT 91
[2024-10-09] MEDS: risperiDONE 1 MG TABLET 2 MG PO (20:57)
[2024-10-09] MEDS: ATORVASTATIN CALCIUM 20 MG TABLET 80 MG PO (20:57)
[2024-10-09] MEDS: DULoxetine HCL 20 MG CAPSULE PO (20:57)
--- NOTE | 2024-10-09 23:43 | VVPN_ITS ---
Telemedicine visit statement This visit was conducted with the use of interactive audio and video telecommunications system that permits real time communication between the patient and the provider. Patient's verbal consent for virtual visit was obtained on 10/09/24 at 2343. Documentation for date of: 10/09/24 Subjective Subjective Interval history: Patient is in telemetry, noted worsening weakness in the left upper extremity and facial weakness with receptive. With repeat CT head today to look for hemorrhagic transformation. Virtual exam Vital Signs Temp Pulse Resp BP Pulse Ox O2 Del Method 97.2 F 84 28 H 151/80 H 91 L Room Air 10/09/24 20:00 10/09/24 20:00 10/09/24 20:00 10/09/24 20:00 10/09/24 20:00 10/09/24 20:00 Objective Labs 10/09/24 05:25 10/09/24 05:25 Labs: Laboratory Results - last 24 hr 10/09/24 05:25 WBC 4.0 RBC 3.84 L Hgb 8.1 L Hct 26.9 L MCV 70 L MCH 21.1 L MCHC 30.1 L RDW Std Deviation 51.4 H Plt Count 246 Neut % (Auto) 75 Lymph % (Auto) 13 [place] % (Auto) 11 Eos % (Auto) 1 Baso % (Auto) 1 Neut # (Auto) 3.0 Lymph # (Auto) 0.5 L [place] # (Auto) 0.4 Eos # (Auto) 0.0 Baso # (Auto) 0.0 Immature Gran # (Auto) 0.01 H Absolute Nucleated RBC 0.00 Immature Gran % 0 Nucleated RBC % 0 Smear Path Review Sent to Pathologist Retic Count (auto) 1.1 Absolute Retic 43.4 Immature Retic Fraction 27.9 H Retic Hgb Content CHr 20.4 L PT 11.2 INR 1.0 APTT 24.3 Sodium 140 Potassium 3.5 Chloride 109 H Carbon Dioxide 22.9 Anion Gap 8 BUN 7 L Creatinine 0.5 L Estim Creat Clear Calc 112.9 eGFR > 60 BUN/Creatinine Ratio 14 Glucose 80 Calculated Osmolality 276 Calcium 8.2 L Corrected Calcium 8.4 L Phosphorus 3.7 Magnesium 1.6 Iron 10 L TIBC 310 Iron Saturation 3 L Unsat Iron Binding 300 H Total Bilirubin 0.5 AST 30 ALT 15 Alkaline Phosphatase 43 L Total Protein 6.4 Albumin 3.7 D Globulin 2.7 Albumin/Globulin Ratio 1.4 Triglycerides 53 Cholesterol 89 L LDL Cholesterol, Calc 39 HDL Cholesterol 39 L Cholesterol/HDL Ratio 2.3 L TSH 0.77 Free T4 1.49 Assessment & Plan Problem List (1) Acute CVA (cerebrovascular accident): Status: Acute Assessment and plan: Reassurance given to the patient regarding the MRI brain findings. Repeat CT head did not show any hemorrhage, will resume 81 mg of aspirin along with statin. Continue with physical and occupational therapy. Continue with aggressive blood pressure management starting tomorrow.
[2024-10-10] VITALS (10 sets, daily range): BP systolic 134–156; BP diastolic 71–91; PULSE 62–105; RESP 13–23; TEMP 36.2–37; O2SAT 92–99; BMI 24.2
[2024-10-10] MEDS: SODIUM CHLORIDE 0.9% 1000 ML 1,000 ML 50 ML IV (06:05)
[2024-10-10 07:12] LABS: Basophils % (Auto) 1 % (0-2.5); Eosinophils # (Auto) 0.1 Thou/mm3 (0.0-0.5); Eosinophils % (Auto) 1 % (0-10); Hematocrit 27.1 % (36.0-46.0); Immature Granulocytes % (Auto) 0 % (0-0); Immature Granulocytes Auto 0.01 Thou/mm3 (0.00-0.00); Lymphocytes # (Auto) 0.5 Thou/mm3 (1.0-4.8); Lymphocytes % (Auto) 12 % (10-50); Mean Corpuscular HGB Conc 29.5 g/dl (31.0-37.0); Mean Corpuscular Hemoglobin 20.6 pg (25.0-35.0); Mean Corpuscular Volume 70 fL (80-100); Monocytes # (Auto) 0.5 Thou/mm3 (0.0-0.8); Monocytes % (Auto) 11 % (0-12); Neutrophils % (Auto) 75 % (37-80); Nucleated Red Blood Cell % 0 /100 WBC (0); Platelet Count 238 Thou/mm3 (140-440); RDW Standard Deviation 50.1 fL (36.4-46.3); Red Blood Count 3.89 Miln/mm3 (4.00-5.20); White Blood Count 4.1 Thou/mm3 (3.6-11.0)
[2024-10-10 07:27] LABS: Alanine Aminotransferase 16 U/L (10-49); Albumin, Serum 3.7 gm/dL (3.5-5.0); Albumin/Globulin Ratio 1.4 (1.2-2.2); Alkaline Phosphatase 45 U/L (46-116); Anion Gap 10 (7-16); Aspartate Amino Transferase 29 U/L (0-34); BUN/Creatinine Ratio 10 Ratio (12-20); Bilirubin,Total 0.4 mg/dL (0.3-1.2); Blood Urea Nitrogen < 5 mg/dL (9-23); Calcium 8.3 mg/dL (8.3-10.6); Calcium (Corrected) 8.5 mg/dL (8.5-10.1); Carbon Dioxide 25.3 mMol/L (20.0-31.0); Chloride 108 mMol/L (98-107); Creatinine (Component) 0.5 mg/dL (0.6-1.3); Estimated Creatinine Clearance 95.8 mL/min (>60); Globulin 2.6 gm/dL (2.3-3.5); Glucose 95 mg/dL (74-106); Osmolality,Calculated 282 (275-295); Potassium 3.6 mMol/L (3.4-5.1); Sodium 143 mMol/L (136-145); Total Protein 6.3 gm/dL (5.7-8.2); eGFR > 60 See Note
[2024-10-10] MEDS: PANTOPRAZOLE INJ 40 MG VIAL IVP (08:26)
[2024-10-10] MEDS: DULoxetine HCL 20 MG CAPSULE PO ×2 (08:26→20:37)
[2024-10-10] MEDS: ASPIRIN EC 81 MG TABEC PO (08:26)
[2024-10-10] MEDS: atenoloL 25 MG TABLET PO ×2 (08:26→20:36)
[2024-10-10] MEDS: Lisinopril 2.5 MG TABLET 5 MG PO (08:28)
--- NOTE | 2024-10-10 11:04 | ESPR_ITS ---
Documentation for date of: 10/10/24 Subjective Subjective Interval history: Patient examined at bedside today. No acute overnight events. Patient reports that she is doing well and feels about the same as yesterday. Has not had a bowel movement yet. Is wondering when she can go home. She has not had a headache or vomited. She says that she is still a bit weak but however was able to walk with the physical therapist a bit yesterday. No other complaints at this time Exam Vital Signs Temp Pulse Resp BP Pulse Ox O2 Del Method 97.5 F 81 22 H 134/91 H 92 L Room Air 10/10/24 08:00 10/10/24 08:28 10/10/24 08:00 10/10/24 08:28 10/10/24 08:00 10/10/24 08:00 Narrative Exam General: AAOx3, NAD, female, looks older than she is, looks a bit unkempt HEENT: Dry mucous membranes, conjunctiva clear, EOMI, PERRLA, poor dentition Cardiovascular: S1, S2, radial pulses +2 bilat, RRR Pulmonary: CTAB bilat no cough, no wheezing GI: No tenderness to light or deep palpitation, no guarding, rigidity, rebound tenderness or distension Extremities: No presence of trace or pitting edema in lower extremities bilaterally, dorsalis pedis pulses +2 bilaterally Neuro: AAOx3, appears to have some left arm weakness in upper extremity, possible some left side facial droop, pupillary reflex intact bilaterally, able to follow most commands, however this is about the same as yesterday Psych: Able to cooperate Objective Labs 10/11/24 04:49 10/11/24 04:49 Labs: Laboratory Results - last 24 hr 10/10/24 06:33 WBC 4.1 RBC 3.89 L Hgb 8.0 L Hct 27.1 L MCV 70 L MCH 20.6 L MCHC 29.5 L RDW Std Deviation 50.1 H Plt Count 238 Neut % (Auto) 75 Lymph % (Auto) 12 [place] % (Auto) 11 Eos % (Auto) 1 Baso % (Auto) 1 Neut # (Auto) 3.0 Lymph # (Auto) 0.5 L [place] # (Auto) 0.5 Eos # (Auto) 0.1 Baso # (Auto) 0.0 Immature Gran # (Auto) 0.01 H Absolute Nucleated RBC 0.00 Immature Gran % 0 Nucleated RBC % 0 Sodium 143 Potassium 3.6 Chloride 108 H Carbon Dioxide 25.3 Anion Gap 10 BUN < 5 L Creatinine 0.5 L Estim Creat Clear Calc 95.8 eGFR > 60 BUN/Creatinine Ratio 10 L Glucose 95 Calculated Osmolality 282 Calcium 8.3 Corrected Calcium 8.5 Total Bilirubin 0.4 AST 29 ALT 16 Alkaline Phosphatase 45 L Total Protein 6.3 Albumin 3.7 Globulin 2.6 Albumin/Globulin Ratio 1.4 Quality Measures Quality Measures none Assessment & Plan Assessment Current Active Medications: Generic Name Dose Route Start Last Admin Trade Name Freq PRN Reason Stop Dose Admin Acetaminophen 650 mg 10/08/24 15:30 10/09/24 16:41 Acetaminophen 325 Mg Tablet PO 11/07/24 15:29 650 mg Q6H PRN Administration Fever >100 or pain 1-3 Albuterol/Ipratropium 3 ml 10/10/24 19:00 Albuterol/Ipratropium (Duoneb) Rt Kary 3 Ml Nebu INH 11/09/24 18:59 [id number] Aspirin 81 mg 10/09/24 15:15 10/10/24 08:26 Aspirin Ec 81 Mg Tabec PO 11/08/24 15:14 81 mg QDAY HUEY Administration Atenolol 25 mg 10/10/24 09:00 10/10/24 08:26 Atenolol 25 Mg Tablet PO 11/09/24 08:59 25 mg BID HUEY Administration Atorvastatin Calcium 80 mg 10/08/24 21:00 10/09/24 20:57 Atorvastatin Calcium 20 Mg Tablet PO 11/07/24 20:59 80 mg HS HUEY Administration Dextrose 25 ml 10/09/24 07:29 Dextrose 50%-Water Inj 50 Ml Syringe IV 11/08/24 07:28 Q15MIN PRN BG 50-70 responsive npo pt Dextrose 50 ml 10/09/24 07:29 Dextrose 50%-Water Inj 50 Ml Syringe IV 11/08/24 07:28 Q15MIN PRN BG <50 OR BG <70 & pt unresponsive Duloxetine HCl 20 mg 10/08/24 21:00 10/10/24 08:26 Duloxetine Hcl 20 Mg Capsule PO 11/07/24 20:59 20 mg BID HUEY Administration Glucagon 1 mg 10/09/24 07:29 Glucagon Inj 1 Mg Vial IM Q15MIN PRN BG <70, and no IV access Lisinopril 5 mg 10/10/24 09:00 10/10/24 08:28 Lisinopril 2.5 Mg Tablet PO 11/09/24 08:59 5 mg QDAY HUEY Administration Nicotine 7 mg 10/08/24 16:27 Nicotine Patch 7 Mg/24 Hr Patch.Td24 TOP 11/07/24 16:29 QDAY PRN As needed for nicotine craving Ondansetron HCl 4 mg 10/08/24 15:30 Ondansetron Inj 2 Mg/Ml Inj 2 Ml IV 11/07/24 15:29 Q6H PRN NAUSEA OR VOMITING Protocol Pantoprazole Sodium 40 mg 10/09/24 09:00 10/10/24 08:26 Pantoprazole Inj 40 Mg Vial IVP 11/08/24 08:59 40 mg QDAY HUEY Administration Risperidone 2 mg 10/08/24 21:00 10/09/24 20:57 Risperidone 1 Mg Tablet PO 11/07/24 20:59 2 mg HS HUEY Administration Sennosides 1 tab 10/08/24 15:30 Senna Tablet PO 11/07/24 15:29 QDAY PRN constipation Protocol Plan Assessment Marilyn is a 59 y/o female with PMHx of HTN, COPD (not on home oxygen), iron deficiency anemia who is admitted for 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 #Acute CVA NIHSS score of 8 by teleneuro Stroke appears to be subacute as symptoms began about 2 to 3 days ago in which this does not allow us to give her TNK Patient has never had a stroke before Patient does have risk factors for stroke including smoking, hypertension head CT shows acute right temporal parietal occipital infarct, representing large area affected MRI shows right acute infarct with possible minimal hemorrhagic transformation in the right temporal occipital parietal lobe Head neck CTA shows multiple occlusions of the right MCA branches Head CT appeared to show no transformation of stroke Patient was seen by speech after she failed bedside eval recommends dysphagia 2 diet A1c 5.0, TSH 0.77, Free T4 1.79, LDL 39 Continue aspirin, will touch base with neurology team if they want to add Plavix at some point Plan: ? Neurology consulted, appreciate recs ? Continue with PT referral ? Echo with bubble study ? Neurochecks every 4 hours ? Head of bed elevation 45 degrees ? SCDs ? Bedrest ? ASA 81 milligrams every day ? High intensity statin, Lipitor 80 mg #Hypertension #Hyperlipidemia Chronic LDL 39 Plan: ? Resumed home lisinopril 5 mg and atenolol 25 mg twice daily ? Lipitor 80 mg #Iron deficiency anemia Patient required about 4 PRBCs last admission Hemoglobin 8 today Iron and ferritin 10 and 2 respectively Reticulocyte count unremarkable Waiting on bowel movement to see what FOBT shows Plan: ? Trend CBC ? Follow-up peripheral blood smear ? Avoiding any NSAIDs ? Protonix 40 mg daily ? Follow-up FOBT #? History of bipolar vs depression Chronic Plan: ?Resumed home Cymbalta 20 mg twice daily and risperidone 2 mg at bedtime #Nicotine dependence #? COPD Over [id number] smoking history Patient has never gone formal PFTs, however he does use ICS/LABA at home, does not use oxygen at home Plan: ? Nicotine patch as needed ? Duonebs q8h PRN #Failure to thrive Concern for patient not being able to carry out adult living activities, lives alone, was also found covered in feces prior to arrival May need to consider SNF moving forward I spoke with family who lives in [place], Kamilah of the daughter, who was inquiring on coming as she wants to know how serious her mother's condition was It was reiterated to Danya that although the patient is hemodynamically stable at this time, considering her stroke history she is at high risk for hemodynamic compromise at any moment including hemorrhagic conversion Her daughter states that she will hold on visiting at this time Plan: ? human services case manager referral #Health Maintenance Disposition: Telemetry DVT prophylaxis: SCDs GI prophylaxis: Protonix Diet: Dysphagia 2 CODE STATUS: DNR Patient seen and care discussed with my attending physician, Dr. José Luis Potts, PGY-1 Attending Provider Attestation/Addendum I have examined the patient, reviewed labs and imaging findings, discussed the case with the resident(s), and reviewed entered orders. I agree with the plan of care as outlined in this note, with these additional summaries/recommendations: Patient seen at bedside. No acute overnight events. Patient endorses minor improvement in left sided weakness. Patient completed MRI brain which confirmed large acute infract with possible minimal hemorrhagic transformation in the right temporal, occipital, and posterior parietal lobe. Case discussed with in- house neurology. Repeat head CT did not reveal any hemorrhagic conversion and patient resumed on aspirin 81 mg p.o. daily. Physical therapy recommends intermediate facility placement and patient in agreement. She is still pending echocardiogram with bubble study. Continue to control vascular risk factors. LDL well-controlled at 39 and continue statin therapy. A1c within normal limits. Patient has history of iron deficiency anemia. Hemoglobin did downtrend to 8.1 from 9.0 yesterday although no evidence of acute bleeding. All questions answered to satisfaction. Please see residents note for additional details of management. Dr. José Luis MD
[2024-10-10] MEDS: ALBUTEROL/IPRATROPIUM (Duoneb) RT SOL 3 ML NEBU INH (12:22)
--- NOTE | 2024-10-10 15:18 | PC.SS ---
SS met with patient at bedside to complete initial assessment. Patient confirmed demographic information. Patient stated her son Haroon Correa [phone] is her alternate decisionmaker. Patient disclosed she lives alone and requires maximum assistance with her ADLs. Patient reports being unable to ambulate due to stroke. Patient reports feeling weak and uses a cane to ambulate. However, at this time she has not been able to ambulate or use cane for support. Pharmacy: [facility]. PCP: Maribeth Paniagua. Patient disclosed she is interested in SNF placement, [facility] preferred. PASRR lvl1 completed, lvl2 pending clearance. Discharge plan: PENDING Alt. decisionmaker: Jose Correa [phone]. APS report faxed to [phone], patient found with feces on her hands/feet. Home was described as ?uninhabitable? by EMS. Patient unable to complete ADLs nor ambulate.
[2024-10-10] MEDS: ACETAMINOPHEN 325 MG TABLET 650 MG PO (16:19)
[2024-10-10] MEDS: ATORVASTATIN CALCIUM 20 MG TABLET 80 MG PO (20:35)
[2024-10-10] MEDS: risperiDONE 1 MG TABLET 2 MG PO (20:35)
--- NOTE | 2024-10-10 22:11 | PD.NEUROPROG ---
Documentation for date of: 10/10/24 Subjective Subjective Interval history: Patient is in telemetry, no new symptoms reported, continue to have visual disturbances. Show gradual improvement of the left upper and lower extremity strength, speech has improved significantly along with facial droop. Tolerating oral diet well. Exam - Neurology Vital Signs Temp Pulse Resp BP Pulse Ox O2 Del Method 97.2 F 79 23 H 136/79 H 94 L Room Air 10/10/24 20:00 10/10/24 20:36 10/10/24 20:00 10/10/24 20:36 10/10/24 20:00 10/10/24 20:00 Narrative Exam GENERAL APPEARANCE: Well hydrated, well-nourished in no acute distress. HEENT: Normocephalic, atraumatic, extraocular movements intact. Pupils: Equal reacting to light and accommodation NECK: Supple, no JVD or bruits. CARDIOVASULAR: Heart: S1, S2 heard, regular without S3-S4 or murmur no rubs or gallops. LUNGS/CHEST: Clear to auscultation bilaterally. No rails, rhonchi, or wheezing. Normal inspection. ABDOMEN: Soft, nontender, with normal bowel sounds. No pulsatile masses. No rebound, rigidity, or guarding. Normal inspection and palpation. EXTREMITIES: Normal inspection and palpation. No edema, clubbing or cyanosis. SKIN: Warm and dry without rashes. Normal inspection. MUSCULOSKELETAL: No cervical, thoracic, lumbar or midline bony tenderness. Normal inspection. NEURO: Alert, awake and oriented x3. Cranial nerves: II through XII grossly intact with exception of left upper motor neuron facial weakness. Speech and language: Normal with no dysarthria or dysphasia. Motor system: Tone and bulk: Normal: Strength: Left pronator drift noted. Strength: 5 out of 5 in the right upper and lower extremities, 4-/5 in both left upper and lower extremities both proximally and distally. Deep tendon reflexes: 2+ bilaterally symmetrical. Plantar reflex: Downgoing bilaterally. Sensory system: Intact to all modalities of sensation bilaterally. Coordination: Intact to dagwdh-xxlt-ivsbza and gykj-vtzv-ccig test bilaterally. Mild ataxia and dysmetria noted on the left. No intention tremors noted. Gait: Not tested. No signs of meningeal irritation noted. PSYCHIATRIC: Normal mood and affect. Objective Labs 10/10/24 06:33 10/10/24 06:33 Labs: Laboratory Results - last 24 hr 10/10/24 06:33 WBC 4.1 RBC 3.89 L Hgb 8.0 L Hct 27.1 L MCV 70 L MCH 20.6 L MCHC 29.5 L RDW Std Deviation 50.1 H Plt Count 238 Neut % (Auto) 75 Lymph % (Auto) 12 [place] % (Auto) 11 Eos % (Auto) 1 Baso % (Auto) 1 Neut # (Auto) 3.0 Lymph # (Auto) 0.5 L [place] # (Auto) 0.5 Eos # (Auto) 0.1 Baso # (Auto) 0.0 Immature Gran # (Auto) 0.01 H Absolute Nucleated RBC 0.00 Immature Gran % 0 Nucleated RBC % 0 Sodium 143 Potassium 3.6 Chloride 108 H Carbon Dioxide 25.3 Anion Gap 10 BUN < 5 L Creatinine 0.5 L Estim Creat Clear Calc 95.8 eGFR > 60 BUN/Creatinine Ratio 10 L Glucose 95 Calculated Osmolality 282 Calcium 8.3 Corrected Calcium 8.5 Total Bilirubin 0.4 AST 29 ALT 16 Alkaline Phosphatase 45 L Total Protein 6.3 Albumin 3.7 Globulin 2.6 Albumin/Globulin Ratio 1.4 Assessment & Plan Assessment and plan (1) Acute CVA (cerebrovascular accident): Status: Acute Assessment and plan: MRI brain showing large acute infarction involving the right parietal and occipital area with minimal hemorrhagic transformation. Repeat CT head did not show any bleed Will continue with aspirin 81 mg and statin Continue with the physical therapy and Occupational Therapy. Patient would need inpatient rehab
[2024-10-11] VITALS (12 sets, daily range): BP systolic 115–159; BP diastolic 68–80; PULSE 57–77; RESP 13–21; TEMP 36.1–36.7; O2SAT 93–98; BMI 29.8; BMI 29.9
[2024-10-11 06:15] LABS: Basophils % (Auto) 0 % (0-2.5); Eosinophils # (Auto) 0.1 Thou/mm3 (0.0-0.5); Eosinophils % (Auto) 2 % (0-10); Immature Granulocytes % (Auto) 1 % (0-0); Immature Granulocytes Auto 0.04 Thou/mm3 (0.00-0.00); Lymphocytes # (Auto) 0.6 Thou/mm3 (1.0-4.8); Lymphocytes % (Auto) 13 % (10-50); Mean Corpuscular HGB Conc 29.6 g/dl (31.0-37.0); Mean Corpuscular Volume 71 fL (80-100); Monocytes # (Auto) 0.6 Thou/mm3 (0.0-0.8); Monocytes % (Auto) 13 % (0-12); Neutrophils # (Auto) 3.5 Thou/mm3 (1.8-7.7); Neutrophils % (Auto) 71 % (37-80); Nucleated Red Blood Cell % 0 /100 WBC (0); Platelet Count 237 Thou/mm3 (140-440); RDW Standard Deviation 51.1 fL (36.4-46.3); Red Blood Count 3.96 Miln/mm3 (4.00-5.20); White Blood Count 4.9 Thou/mm3 (3.6-11.0)
[2024-10-11 06:18] LABS: Hemoglobin 8.3 g/dL (12.0-16.0)
[2024-10-11 06:26] LABS: Alanine Aminotransferase 16 U/L (10-49); Albumin, Serum 3.7 gm/dL (3.5-5.0); Albumin/Globulin Ratio 1.4 (1.2-2.2); Alkaline Phosphatase 45 U/L (46-116); Anion Gap 8 (7-16); Aspartate Amino Transferase 32 U/L (0-34); BUN/Creatinine Ratio 8 Ratio (12-20); Bilirubin,Total 0.4 mg/dL (0.3-1.2); Blood Urea Nitrogen 5 mg/dL (9-23); Calcium 8.4 mg/dL (8.3-10.6); Calcium (Corrected) 8.6 mg/dL (8.5-10.1); Carbon Dioxide 27.6 mMol/L (20.0-31.0); Chloride 107 mMol/L (98-107); Creatinine (Component) 0.6 mg/dL (0.6-1.3); Globulin 2.7 gm/dL (2.3-3.5); Glucose 95 mg/dL (74-106); Magnesium 1.7 mg/dL (1.6-2.6); Osmolality,Calculated 282 (275-295); Potassium 3.8 mMol/L (3.4-5.1); Sodium 143 mMol/L (136-145); Total Protein 6.4 gm/dL (5.7-8.2); eGFR > 60 See Note
[2024-10-11] MEDS: atenoloL 25 MG TABLET PO ×2 (08:01→20:41)
[2024-10-11] MEDS: Lisinopril 2.5 MG TABLET 5 MG PO (08:01)
[2024-10-11] MEDS: DULoxetine HCL 20 MG CAPSULE PO (08:01)
[2024-10-11] MEDS: PANTOPRAZOLE INJ 40 MG VIAL IVP (08:01)
[2024-10-11] MEDS: ASPIRIN EC 81 MG TABEC PO (08:02)
[2024-10-11 08:11] LABS: OBS Card Expiration Date 2026-09; OBS Card Lot # 23001; OBS Developer Lot # 23002; OBS Performed By DRAKK1; OBS QC OK? Yes; Occult Blood, Stool Negative (Negative)
--- NOTE | 2024-10-11 09:19 | PC.SS ---
Addendum entered by Christine Euceda 10/11/24 13:39: Pt is waiting for CT scan. SS spoke to Laura from [facility] they have received insurance authorization number and will accept pt. Resident physician, Dr. Thurman is aware. Addendum entered by Christine Euceda 10/11/24 11:31: SS met with pt who is requesting [facility]. Pt is aware [facility] has accepted. SS provided pt with [facility]. Addendum entered by Christine Euceda 10/11/24 11:20: SS met with pt and provided her with choices for SNF. [facility], and [facility]. [facility] was considering. [facility] and [facility] have not responded. Patient's choice is [facility]. Pt states if [facility] declines her 2nd choice is [facility]. SS spoke to Laura from admissions who is states they have started insurance authorization. PASDILCIA has been sent on [facility] for insurance authorization. Pt is aware. [facility], [place] [id number] [facility] Yes 10/11/2024 09:32 10/11/2024 09:19 We can accept this patient. Thank you for your referral ?(1) [facility] [address], [place] [id number] [facility] 10/11/2024 09:19 ?(1) [facility], [place] [id number] [facility] Facility Yes 10/11/2024 11:09 10/11/2024 09:19 We can accept this patient. Thank you for your referral ?(5) [facility] [id number] [place] [address] Penit[facility] Facility Yes 10/11/2024 09:20 10/11/2024 09:19 We can accept this patient. Thank you for your referral ?(1) [facility] [place] [address] Penitentiary Facility Yes 10/11/2024 09:22 10/11/2024 09:19 We can accept this patient. Thank you for your referral ?(1) [facility] [id number] [place], [place] [id number] [facility] Original Note: Follow up note: Neurology is consulting. Needing bowel movement. SS has sent inquiry to the local SNF using [employer].
[2024-10-11 10:24] LABS: Phosphorous 4.6 mg/dL (2.4-5.1)
--- NOTE | 2024-10-11 10:50 | XR_ITS ---
Examination: CT brain head without contrast. 2-D sagittal coronal reconstructions Date and time of exam:October 11, 2024 at 1529 hours INDICATIONS: Acute stroke right temporal parietal occipital lobe on CT brain scan October 08, 2024 CTDI: vol (mGy):50 DLP: (mGycm):981 Technique: Multiple CT axial sections of the brain have been obtained, 5 mm slice thickness. Contrast has not been administered. 2-D sagittal, coronal reconstructions have been obtained Low dose protocols were performed. One or more of the following dose reduction techniques were used; automated exposure control, adjustment of the mA and/or KV according to patient size, use of iterative reconstruction technique. Findings: Large acute infarct right temporal right occipital right parietal lobe again depicted Multiple axial images, for instance image 22 demonstrates findings consistent with some hemorrhagic transformation of this infarct No new areas of infarct Ventricles are not enlarged IMPRESSION: Large acute infarct right posterior temporal right occipital right parietal lobe again depicted Multiple images demonstrate some element of hemorrhagic conversion of this infarct
--- NOTE | 2024-10-11 11:13 | PD.RESPRO ---
Documentation for date of: 10/11/24 Subjective Subjective Interval history: Patient was seen and examined by the bedside. No acute overnight events. Patient reports improvement of strength in her left extremities, speech. Repeat head CT showed some element of hemorrhagic conversion of the infarct. Exam Vital Signs Temp Pulse Resp BP Pulse Ox O2 Del Method 97.5 F 67 17 123/76 95 Room Air 10/11/24 08:00 10/11/24 08:01 10/11/24 08:00 10/11/24 08:01 10/11/24 08:00 10/11/24 08:00 Narrative Exam Gen: Disheveled unkempt female. HEENT: NCAT, PERRLA, EOMI, MMM, anicteric conjunctivae. CVS: normal S1 and S2. RRR. No M/R/G. Resp: CTA B/L. No rhonchi, rales, crackles or wheezing. Abd: soft, non-tender, non-distended. BS+ in all 4 quadrants. MSK: Good ROM in BUE & BLE. No edema or rash. Neuro: Mild left sided lower facial droop. Strength 5/5 in RUE & RLE, strength 4/5 in LUE, LLE. Dysarthria. Tendon reflexes equal, 1+, Babinski negative bilaterally. Alert and oriented x3. Psych: appropriate mood and affect. Objective Labs 10/12/24 05:51 10/12/24 05:51 Labs: Laboratory Results - last 24 hr 10/10/24 10/11/24 18:32 04:49 WBC 4.9 RBC 3.96 L Hgb 8.3 L Hct 28.0 L MCV 71 L MCH 21.0 L MCHC 29.6 L RDW Std Deviation 51.1 H Plt Count 237 Neut % (Auto) 71 Lymph % (Auto) 13 [place] % (Auto) 13 H Eos % (Auto) 2 Baso % (Auto) 0 Neut # (Auto) 3.5 Lymph # (Auto) 0.6 L [place] # (Auto) 0.6 Eos # (Auto) 0.1 Baso # (Auto) 0.0 Immature Gran # (Auto) 0.04 H Absolute Nucleated RBC 0.00 Immature Gran % 1 H Nucleated RBC % 0 Sodium 143 Potassium 3.8 Chloride 107 Carbon Dioxide 27.6 Anion Gap 8 BUN 5 L Creatinine 0.6 Estim Creat Clear Calc 95.0 eGFR > 60 BUN/Creatinine Ratio 8 L Glucose 95 Calculated Osmolality 282 Calcium 8.4 Corrected Calcium 8.6 Phosphorus 4.6 Magnesium 1.7 Total Bilirubin 0.4 AST 32 ALT 16 Alkaline Phosphatase 45 L Total Protein 6.4 Albumin 3.7 Globulin 2.7 Albumin/Globulin Ratio 1.4 Stool Occult Blood Negative Quality Measures Quality Measures VTE prophylaxis Assessment & Plan Assessment Current Active Medications: Generic Name Dose Route Start Last Admin Trade Name Freq PRN Reason Stop Dose Admin Acetaminophen 650 mg 10/08/24 15:30 10/10/24 16:19 Acetaminophen 325 Mg Tablet PO 11/07/24 15:29 650 mg Q6H PRN Administration Fever >100 or pain 1-3 Albuterol/Ipratropium 3 ml 10/10/24 11:56 Albuterol/Ipratropium (Duoneb) Rt Kary 3 Ml Nebu INH 11/09/24 11:59 Q8HRRT PRN wheezing Aspirin 81 mg 10/09/24 15:15 10/11/24 08:02 Aspirin Ec 81 Mg Tabec PO 11/08/24 15:14 81 mg QDAY HUEY Administration Atenolol 25 mg 10/10/24 09:00 10/11/24 08:01 Atenolol 25 Mg Tablet PO 11/09/24 08:59 25 mg BID HUEY Administration Atorvastatin Calcium 80 mg 10/08/24 21:00 10/10/24 20:35 Atorvastatin Calcium 20 Mg Tablet PO 11/07/24 20:59 80 mg HS HUEY Administration Dextrose 25 ml 10/09/24 07:29 Dextrose 50%-Water Inj 50 Ml Syringe IV 11/08/24 07:28 Q15MIN PRN BG 50-70 responsive npo pt Dextrose 50 ml 10/09/24 07:29 Dextrose 50%-Water Inj 50 Ml Syringe IV 11/08/24 07:28 Q15MIN PRN BG <50 OR BG <70 & pt unresponsive Duloxetine HCl 20 mg 10/08/24 21:00 10/11/24 08:01 Duloxetine Hcl 20 Mg Capsule PO 11/07/24 20:59 20 mg BID HUEY Administration Glucagon 1 mg 10/09/24 07:29 Glucagon Inj 1 Mg Vial IM Q15MIN PRN BG <70, and no IV access Lisinopril 5 mg 10/10/24 09:00 10/11/24 08:01 Lisinopril 2.5 Mg Tablet PO 11/09/24 08:59 5 mg QDAY HUEY Administration Nicotine 7 mg 10/08/24 16:27 Nicotine Patch 7 Mg/24 Hr Patch.Td24 TOP 11/07/24 16:29 QDAY PRN As needed for nicotine craving Ondansetron HCl 4 mg 10/08/24 15:30 Ondansetron Inj 2 Mg/Ml Inj 2 Ml IV 11/07/24 15:29 Q6H PRN NAUSEA OR VOMITING Protocol Pantoprazole Sodium 40 mg 10/09/24 09:00 10/11/24 08:01 Pantoprazole Inj 40 Mg Vial IVP 11/08/24 08:59 40 mg QDAY HUEY Administration Risperidone 2 mg 10/08/24 21:00 10/10/24 20:35 Risperidone 1 Mg Tablet PO 11/07/24 20:59 2 mg HS HUEY Administration Sennosides 1 tab 10/08/24 15:30 Senna Tablet PO 11/07/24 15:29 QDAY PRN constipation Protocol Plan #Subacute stroke #Right MCA stroke Patient started to experience symptoms [address] head showed large infarct in the right temporoparietal occipital lobe. Repeat CT some element of hemorrhagic conversion of this infarct. Plan: - Aspirin 81 mg qday ? Atorvastatin 80 mg daily ? Euglycemia and normothermia ? Telemetry ? Head of bed 30 degrees elevation ? Neurochecks every 4 hours ? Patient will require SNF placement for rehabilitation - continue with PT -BP control -dvt prophylaxis - follow-up with Dr. Kaiser in 2 weeks #Hypertension #Hyperlipidemia #Iron deficiency anemia #? History of bipolar vs depression #Nicotine dependence #? COPD - management per primary team Plan of care discussed with attending Dr. Kaiser. Ena Stanton MD, PGY 1. Attending Provider Attestation/Addendum Patient was seen and examined at the bedside and I agree with the residents findings, assessment and plan of care. Will continue with aspirin 81 mg and to follow-up with repeat CT upon discharge to decide about further management. Patient patient is advised to continue with intense physical therapy as she is showing improvement since admission.
[2024-10-11] MEDS: ACETAMINOPHEN 325 MG TABLET 650 MG PO ×2 (11:16→20:46)
--- NOTE | 2024-10-11 12:08 | ECHO_ITS ---
Transthoracic Echo Report Ht (in): 61 Wt (lb): 163 Exam Location: [facility] Status: Inpatient [place] Operator: GARIBAY Keira^^^^ Indications: Procedure Performed: BP: / HR: 71 Technical Quality: Fair MEASUREMENTS (Male / Female) Normal Values 2D ECHO LV Diastolic Diameter PLAX 4.3 cm 4.2 - 5.9 / 3.9 - 5.3 cm LV Systolic Diameter PLAX 3.0 cm IVS Diastolic Thickness 0.7 cm 0.6 - 1.0 / 0.6 - 0.9 cm LVPW Diastolic Thickness 0.9 cm 0.6 - 1.0 / 0.6 - 0.9 cm LV Relative Wall Thickness 0.4 LVOT Diameter 1.7 cm Aortic Root Diameter 2.9 cm LA Systolic Diameter LX 3.7 cm 3.0 - 4.0 / 2.7 - 3.8 cm LA Volume Index 41.5 cm?/m? 16 - 28 cm?/m? DOPPLER AV Peak Velocity 176.0 cm/s AV Peak Gradient 12.4 mmHg AV Mean Gradient 7.0 mmHg AV Velocity Time Integral 39.0 cm AI Peak Velocity 390.0 cm/s AI Peak Gradient 60.8 mmHg AI Pressure Half Time 427.0 ms LVOT Peak Velocity 146.0 cm/s LVOT Peak Gradient 8.5 mmHg LVOT Velocity Time Integral 37.8 cm LVOT Cardiac Index 3361.4 cm?/min?m? AV Area Cont Eq vti 2.2 cm? AV Area Cont Eq pk 1.9 cm? MV Peak Velocity 121.0 cm/s MV Peak Gradient 5.9 mmHg MV Mean Velocity 84.5 cm/s MV Mean Gradient 3.0 mmHg MV Area PHT 3.4 cm? MR Peak Velocity 556.0 cm/s MR Peak Gradient 123.7 mmHg Mitral E Point Velocity 105.0 cm/s Mitral A Point Velocity 124.0 cm/s Mitral E to A Ratio 0.8 LV E' Lateral Velocity 9.9 cm/s Mitral E to LV E' Lateral Ratio 10.6 LV E' Septal Velocity 8.1 cm/s Mitral E to LV E' Septal Ratio 13.0 TR Peak Velocity 253.7 cm/s TR Peak Gradient 25.7 mmHg PV Peak Velocity 115.0 cm/s PV Peak Gradient 5.3 mmHg RVOT Peak Velocity 61.3 cm/s FINDINGS Left Ventricle Normal left ventricular size, wall thickness, systolic function with no obvious regional wall motion abnormalities. There is grade II diastolic dysfunction of the left ventricle (pseudonormal filling pattern). The left ventricular ejection fraction is normal, estimated at 55-60%. Right Ventricle The right ventricle is normal in size and systolic function. The estimated right ventricular systolic pressure, 30 mmHg. Left Atrium Mildly increased left atrial volume 41.5 mL/m?. Right Atrium The right atrium is normal by two-dimensional imaging, color flow and Doppler imaging with no structural abnormalities, no thrombus formation present. Atrial Septum The interatrial septum is normal to color flow Doppler and agitated saline imaging. Aorta The aorta is normal by two-dimensional, color flow and Doppler interrogation. Mitral Valve [id number] mitral regurgitation. Mild mitral annular calcification. Mild thickening of the mitral valve leaflets. Aortic Valve Aortic valve sclerosis. Tricuspid Valve There is mild tricuspid valve regurgitation. Pulmonic Valve Trivial pulmonic valve regurgitation. Vessels The pulmonary artery appears normal. The inferior vena cava pulmonary and hepatic veins appear normal. Pericardium The pericardium is normal by two-dimensional imaging. There is no significant pericardial effusion. CONCLUSIONS indication: R/O PFO Bubble study is negative no evidence of patent foramen ovale IAS is is normal to color flow Doppler and agitated saline imaging. Normal-sized left ventricle with excellent LV systolic function ejection fraction of 60% RV appears normal with RVSP 30 mmHg LA is mildly dilated Aortic valve sclerosis no stenosis. Mitral valve thickening mild mitral regurgitation. Mild tricuspid regurgitation. No cardiac source of thromboembolism. Monique Zhao (Electronically Signed) Final Date: 11 Oct 2024 17:01
--- NOTE | 2024-10-11 18:24 | PD.RESPRO ---
Documentation for date of: 10/11/24 Subjective Subjective Interval history: Patient examined at bedside today. patient went bradycardic overnight while sleeping in the 40s. Patient reports she is doing well, feels better, feels like her strength is coming back and that her speech is slurring less. She is wondering when she is can go home. No other complaints this time. Exam Vital Signs Temp Pulse Resp BP Pulse Ox O2 Del Method 97.3 F 66 19 135/76 H 94 L Room Air 10/11/24 16:00 10/11/24 16:00 10/11/24 16:00 10/11/24 16:00 10/11/24 16:00 10/11/24 16:00 Narrative Exam General: AAOx3, NAD, female, looks older than she is, looks a bit unkempt HEENT: Dry mucous membranes, conjunctiva clear, EOMI, PERRLA, poor dentition Cardiovascular: S1, S2, radial pulses +2 bilat, RRR Pulmonary: CTAB bilat no cough, no wheezing GI: No tenderness to light or deep palpitation, no guarding, rigidity, rebound tenderness or distension Extremities: No presence of trace or pitting edema in lower extremities bilaterally, dorsalis pedis pulses +2 bilaterally Neuro: AAOx3, appears to have some left arm weakness in upper extremity, pupillary reflex intact bilaterally, able to follow most commands, improved strength since yesterday Psych: Able to cooperate Objective Labs 10/12/24 05:51 10/12/24 05:51 Labs: Laboratory Results - last 24 hr 10/10/24 10/11/24 18:32 04:49 WBC 4.9 RBC 3.96 L Hgb 8.3 L Hct 28.0 L MCV 71 L MCH 21.0 L MCHC 29.6 L RDW Std Deviation 51.1 H Plt Count 237 Neut % (Auto) 71 Lymph % (Auto) 13 [place] % (Auto) 13 H Eos % (Auto) 2 Baso % (Auto) 0 Neut # (Auto) 3.5 Lymph # (Auto) 0.6 L [place] # (Auto) 0.6 Eos # (Auto) 0.1 Baso # (Auto) 0.0 Immature Gran # (Auto) 0.04 H Absolute Nucleated RBC 0.00 Immature Gran % 1 H Nucleated RBC % 0 Sodium 143 Potassium 3.8 Chloride 107 Carbon Dioxide 27.6 Anion Gap 8 BUN 5 L Creatinine 0.6 Estim Creat Clear Calc 95.0 eGFR > 60 BUN/Creatinine Ratio 8 L Glucose 95 Calculated Osmolality 282 Calcium 8.4 Corrected Calcium 8.6 Phosphorus 4.6 Magnesium 1.7 Total Bilirubin 0.4 AST 32 ALT 16 Alkaline Phosphatase 45 L Total Protein 6.4 Albumin 3.7 Globulin 2.7 Albumin/Globulin Ratio 1.4 Stool Occult Blood Negative Quality Measures Quality Measures VTE prophylaxis Assessment & Plan Assessment Current Active Medications: Generic Name Dose Route Start Last Admin Trade Name Freq PRN Reason Stop Dose Admin Acetaminophen 650 mg 10/08/24 15:30 10/11/24 11:16 Acetaminophen 325 Mg Tablet PO 11/07/24 15:29 650 mg Q6H PRN Administration Fever >100 or pain 1-3 Albuterol/Ipratropium 3 ml 10/10/24 11:56 Albuterol/Ipratropium (Duoneb) Rt Kary 3 Ml Nebu INH 11/09/24 11:59 Q8HRRT PRN wheezing Aspirin 81 mg 10/09/24 15:15 10/11/24 08:02 Aspirin Ec 81 Mg Tabec PO 11/08/24 15:14 81 mg QDAY HUEY Administration Atenolol 25 mg 10/10/24 09:00 10/11/24 08:01 Atenolol 25 Mg Tablet PO 11/09/24 08:59 25 mg BID HUEY Administration Atorvastatin Calcium 80 mg 10/08/24 21:00 10/10/24 20:35 Atorvastatin Calcium 20 Mg Tablet PO 11/07/24 20:59 80 mg HS HUEY Administration Dextrose 25 ml 10/09/24 07:29 Dextrose 50%-Water Inj 50 Ml Syringe IV 11/08/24 07:28 Q15MIN PRN BG 50-70 responsive npo pt Dextrose 50 ml 10/09/24 07:29 Dextrose 50%-Water Inj 50 Ml Syringe IV 11/08/24 07:28 Q15MIN PRN BG <50 OR BG <70 & pt unresponsive Duloxetine HCl 30 mg 10/11/24 21:00 Duloxetine Hcl 30 Mg Capsule PO 11/10/24 20:59 BID HUEY Glucagon 1 mg 10/09/24 07:29 Glucagon Inj 1 Mg Vial IM Q15MIN PRN BG <70, and no IV access Lisinopril 5 mg 10/10/24 09:00 10/11/24 08:01 Lisinopril 2.5 Mg Tablet PO 11/09/24 08:59 5 mg QDAY HUEY Administration Nicotine 7 mg 10/08/24 16:27 Nicotine Patch 7 Mg/24 Hr Patch.Td24 TOP 11/07/24 16:29 QDAY PRN As needed for nicotine craving Ondansetron HCl 4 mg 10/08/24 15:30 Ondansetron Inj 2 Mg/Ml Inj 2 Ml IV 11/07/24 15:29 Q6H PRN NAUSEA OR VOMITING Protocol Pantoprazole Sodium 40 mg 10/09/24 09:00 10/11/24 08:01 Pantoprazole Inj 40 Mg Vial IVP 11/08/24 08:59 40 mg QDAY HUEY Administration Risperidone 2 mg 10/08/24 21:00 10/10/24 20:35 Risperidone 1 Mg Tablet PO 11/07/24 20:59 2 mg HS HUEY Administration Sennosides 1 tab 10/08/24 15:30 Senna Tablet PO 11/07/24 15:29 QDAY PRN constipation Protocol Plan Assessment Marilyn is a 59 y/o female with PMHx of HTN, COPD (not on home oxygen), iron deficiency anemia who is admitted for 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 #Acute CVA #? CVA with hemorrhagic conversion NIHSS score of 8 by teleneuro Stroke appears to be subacute as symptoms began about 2 to 3 days ago in which this does not allow us to give her TNK Patient has never had a stroke before Patient does have risk factors for stroke including smoking, hypertension head CT shows acute right temporal parietal occipital infarct, representing large area affected MRI shows right acute infarct with possible minimal hemorrhagic transformation in the right temporal occipital parietal lobe Head neck CTA shows multiple occlusions of the right MCA branches Head CT appeared to show no transformation of stroke Patient was seen by speech after she failed bedside eval recommends dysphagia 2 diet A1c 5.0, TSH 0.77, Free T4 1.79, LDL 39 Will order repeat head CT to see for hemorrhagic conversion before starting plavix I will continue to hold heparin subcu due to risk of hemorrhagic conversion Plan: ? Neurology consulted, appreciate recs ? Continue with PT referral ? Repeat head CT ? Follow up Echo with bubble study ? Neurochecks every 4 hours ? Head of bed elevation 45 degrees ? SCDs ? Bedrest ? ASA 81 milligrams every day ? High intensity statin, Lipitor 80 mg #Hypertension #Hyperlipidemia Chronic LDL 39 Plan: ? Resumed home lisinopril 5 mg and atenolol 25 mg twice daily ? Lipitor 80 mg #Iron deficiency anemia Patient required about 4 PRBCs last admission Hemoglobin 8 today Iron and ferritin 10 and 2 respectively Reticulocyte count unremarkable Waiting on bowel movement to see what FOBT shows FOBT negative Peripheral blood smear shows hypochromic normocytic iron deficiency anemia without hemolysis Plan: ? Trend CBC ? Avoiding any NSAIDs ? Protonix 40 mg daily #History of bipolar #History of depression Chronic Plan: ?Resumed home Cymbalta 20 mg twice daily and risperidone 2 mg at bedtime #Nicotine dependence #? COPD Over [id number] smoking history Patient has never gone formal PFTs, however he does use ICS/LABA at home, does not use oxygen at home Plan: ? Nicotine patch as needed ? Duonebs q8h PRN #Failure to thrive Concern for patient not being able to carry out adult living activities, lives alone, was also found covered in feces prior to arrival May need to consider SNF moving forward I spoke with family who lives in [place], [place]il[place] of the daughter, who was inquiring on coming as she wants to know how serious her mother's condition was It was reiterated to Danya that although the patient is hemodynamically stable at this time, considering her stroke history she is at high risk for hemodynamic compromise at any moment including hemorrhagic conversion Her daughter states that she will hold on visiting at this time Plan: ? tax services intern referral #Health Maintenance Disposition: Telemetry DVT prophylaxis: SCDs, continuing to hold heparin subq due to concern for hemorrhagic conversion GI prophylaxis: Protonix Diet: Dysphagia 2 CODE STATUS: DNR Patient seen and care discussed with my attending physician, Dr. José Luis Potts, PGY-1 Attending Provider Attestation/Addendum I have examined the patient, reviewed labs and imaging findings, discussed the case with the resident(s), and reviewed entered orders. I agree with the plan of care as outlined in this note, with these additional summaries/recommendations: Patient seen at bedside. No acute overnight events. She continues to report improvement in her speech and weakness. Case discussed with neurology and we will obtain repeat CT head to rule out hemorrhagic conversion before proceeding with Plavix. Patient also pending echocardiogram with bubble study to rule out PFO before she can be safely discharged. Continue aspirin and statin. Patient will require care home facility on discharge. Dr. José Luis MD
[2024-10-11] MEDS: ALBUTEROL/IPRATROPIUM (Duoneb) RT SOL 3 ML NEBU INH (18:39)
[2024-10-11] MEDS: DULoxetine HCL 30 MG CAPSULE PO (20:40)
[2024-10-11] MEDS: risperiDONE 1 MG TABLET 2 MG PO (20:40)
[2024-10-11] MEDS: ATORVASTATIN CALCIUM 20 MG TABLET 80 MG PO (20:40)
[2024-10-12] VITALS (12 sets, daily range): BP systolic 115–142; BP diastolic 57–81; PULSE 61–78; RESP 15–20; TEMP 35.9–36.6; O2SAT 93–99; BMI 29.0
[2024-10-12 06:23] LABS: Basophils % (Auto) 0 % (0-2.5); Eosinophils # (Auto) 0.1 Thou/mm3 (0.0-0.5); Eosinophils % (Auto) 2 % (0-10); Hematocrit 29.7 % (36.0-46.0); Immature Granulocytes % (Auto) 0 % (0-0); Immature Granulocytes Auto 0.02 Thou/mm3 (0.00-0.00); Lymphocytes # (Auto) 0.6 Thou/mm3 (1.0-4.8); Lymphocytes % (Auto) 9 % (10-50); Mean Corpuscular Hemoglobin 20.9 pg (25.0-35.0); Mean Corpuscular Volume 72 fL (80-100); Monocytes # (Auto) 0.5 Thou/mm3 (0.0-0.8); Monocytes % (Auto) 8 % (0-12); Neutrophils # (Auto) 4.9 Thou/mm3 (1.8-7.7); Neutrophils % (Auto) 80 % (37-80); Nucleated Red Blood Cell % 0 /100 WBC (0); Platelet Count 230 Thou/mm3 (140-440); RDW Standard Deviation 51.7 fL (36.4-46.3); Red Blood Count 4.11 Miln/mm3 (4.00-5.20); White Blood Count 6.1 Thou/mm3 (3.6-11.0)
[2024-10-12 06:26] LABS: Hemoglobin 8.6 g/dL (12.0-16.0)
[2024-10-12 06:58] LABS: Alanine Aminotransferase 13 U/L (10-49); Albumin, Serum 3.8 gm/dL (3.5-5.0); Albumin/Globulin Ratio 1.4 (1.2-2.2); Alkaline Phosphatase 48 U/L (46-116); Anion Gap 7 (7-16); Aspartate Amino Transferase 30 U/L (0-34); BUN/Creatinine Ratio 15 Ratio (12-20); Bilirubin,Total 0.4 mg/dL (0.3-1.2); Blood Urea Nitrogen 9 mg/dL (9-23); Calcium 8.3 mg/dL (8.3-10.6); Calcium (Corrected) 8.5 mg/dL (8.5-10.1); Carbon Dioxide 29.1 mMol/L (20.0-31.0); Chloride 106 mMol/L (98-107); Creatinine (Component) 0.6 mg/dL (0.6-1.3); Estimated Creatinine Clearance 91.4 mL/min (>60); Globulin 2.7 gm/dL (2.3-3.5); Glucose 107 mg/dL (74-106); Magnesium 1.7 mg/dL (1.6-2.6); Osmolality,Calculated 281 (275-295); Phosphorous 4.2 mg/dL (2.4-5.1); Sodium 142 mMol/L (136-145); Total Protein 6.5 gm/dL (5.7-8.2); eGFR > 60 See Note
[2024-10-12] MEDS: PANTOPRAZOLE INJ 40 MG VIAL IVP (08:29)
[2024-10-12] MEDS: Lisinopril 2.5 MG TABLET 5 MG PO (08:29)
[2024-10-12] MEDS: ASPIRIN EC 81 MG TABEC PO (08:30)
[2024-10-12] MEDS: atenoloL 25 MG TABLET PO (08:30)
[2024-10-12] MEDS: DULoxetine HCL 30 MG CAPSULE PO (08:30)
--- NOTE | 2024-10-12 10:28 | PD.RESDS ---
Planned Discharge Date 10/12/24 DS: Providers Provider Date of admission: 10/08/24 15:45 Primary care physician: TABBY Chou Admitting Provider: Misha Ordonez MD Attending Provider on Admission: Rachel Sarmiento MD Consults: 10/08/24 15:30 Consult to Neurology / Tele-Neurology Routine Comment: Consulting Provider: Florentin Kaiser Referral Physical Therapy Routine Comment: Physician Instructions: Referral Speech Therapy Routine Comment: Attending Provider on DC: Simone Thurman MD Discharging Provider: Simone Thurman MD DS: Diagnosis Problem List Completed Was Problem List Reviewed/Reconciled?: Yes Hospital Course Hospital Course Hospital course: A 59-year-old female patient with past medical history of hypertension, COPD not on home oxygen, iron deficiency anemia came to the emergency department after she started to feel left-sided weakness, slurred speech, inability to walk, that started 1 week before presentation. At that time patient was not able to take care of herself and her neighbor noticed that we can call the ambulance. On arrival the ambulance noticed that her house was inhabitable. In evaluation patient was found to have left-sided weakness, slurred speech, mouth deviation. NIHSS score was 8 [address] scan was done and showed large acute right temporal, parietal, occipital lobe infarct. Teleneurologist recommended the patient to be admitted for stroke workup. Echo was negative for any PFO, ejection fraction was 60%. Patient was started on aspirin and atorvastatin. During the patient stay repeat CT scan MRI to follow-up if there is any hemorrhagic conversion as the size of the infarct was significant and it was now treated for [address] scan repeat was read by the in-house neurologist and reported that there was no signs of hemorrhagic conversion. Moreover, the patient continued to improve significantly on the day of discharge her slurred speech significantly improved, and the level of energy also improved on the affected side. Patient was cleared for discharge to go to SNF as the patient has significant left-sided weakness. Patient was given the following instruction: Follow up with your PCP within one week from discharge You will need CT scan to be repeated after 2 weeks from discharge that has to be ordrered by primary care provider before you visit the neurologist Dr Kaiser Follow up with the neurologist Dr Kaiser within one week from discharge Use medications as prescribed In case of worsening or recurrence of your symptoms you need to return to the ED as soon as possible Discharging diagnosis #Acute ischemic stroke involving the right parietal, occipital, temporal area #Hypertension #Hyperlipidemia #Iron deficiency anemia #History of bipolar disorder #History of depression #History of COPD reportedly #Failure to thrive - Patient's plan and care discussed with my attending, Dr. Jean-Pierre Thurman MD Internal Medicine PGY-2 Time Spent with Patient Time attestation: Total time spent providing and/or coordinating discharge services: Time spent: Less than 30 minutes Exam Vital Signs Temp Pulse Resp BP Pulse Ox O2 Del Method O2 Flow Rate 97.1 F 67 15 142/81 H 94 L Room Air 2 10/12/24 08:00 10/12/24 08:30 10/12/24 08:00 10/12/24 08:30 10/12/24 08:00 10/12/24 08:00 10/12/24 08:00 Narrative Exam General: AAOx3, NAD, female, looks older than she is, looks a bit unkempt HEENT: Dry mucous membranes, conjunctiva clear, EOMI, PERRLA, poor dentition Cardiovascular: S1, S2, radial pulses +2 bilat, RRR Pulmonary: CTAB bilat no cough, no wheezing GI: No tenderness to light or deep palpitation, no guarding, rigidity, rebound tenderness or distension Extremities: No presence of trace or pitting edema in lower extremities bilaterally, dorsalis pedis pulses +2 bilaterally Neuro: AAOx3, continue to have some left arm weakness in upper extremity, pupillary reflex intact bilaterally, able to follow most commands, continue to improve slowly Psych: Able to cooperate Discharge Plan Plan [place] [facility] [place] Patient condition on transfer: Stable and Benefits outweigh risks Care Plan Goals: Follow up with your PCP within one week from discharge You will need CT scan to be repeated after 2 weeks from discharge that has to be ordrered by primary care provider before you visit the neurologist Dr Kaiser Follow up with the neurologist Dr Kaiser within one week from discharge Use medications as prescribed In case of worsening or recurrence of your symptoms you need to return to the ED as soon as possible Prescriptions/Referrals Prescriptions/Med Rec: New atorvastatin 20 mg Tablet 80 mg PO HS Qty: 14 0RF aspirin [Ecotrin Low Strength] 81 mg Tablet,Delayed Release (Dr/Ec) 81 mg PO QDAY Qty: 30 0RF ferrous fum-vit C-vit B12-FA 200-250-0.01-1 mg capsule 1 cap PO QDAY 14 Days Qty: 14 0RF docusate sodium [Colace] 100 mg capsule 100 mg PO BID PRN (Reason: constipation) Qty: 10 0RF Continued risperidone [Risperdal] 2 MG tablet 2 mg PO HS Qty: 0 lisinopril 5 mg Tablet 5 mg PO QDAY duloxetine 20 mg Capsule,Delayed Release(Dr/Ec) 20 mg PO BID albuterol sulfate [Ventolin HFA] 90 mcg/actuation Hfa Aerosol Inhaler 2 puff INH Q4HR PRN (Reason: Shortness Of Breath Or Wheeze) Qty: 6.7 0RF atenolol 25 mg Tablet 25 mg PO BID budesonide-formoterol [Symbicort] 80-4.5 mcg/actuation HFA aerosol inhaler 2 puff inhalation QDAY Patient Comments: INHALE TWO PUFF BY MOUTH TWICE DAILY Referrals: Maribeth Paniagua FNP-C [Primary Care Provider] - Patient/Caregiver Discharge Instructions Discharge Activity: as per physical therapy Education Materials: Stroke: Resources and Support, Stroke: Self-Care, Anatomy of the Brain, Discharge Instructions for Stroke, Stroke Regaining Movement, Stroke Prevent Another Caregiver Print Language: Mohawk Stand Alone Forms: [employer] Award Info., Patient Portal Info Letter Discharge Order Discharge Orders: Discharge (Routine); Ordered 10/12/24 Ordered By: Simone Thurman Quality Discharge Quality Measures VTE prophylaxis Attestestation Attestation I attest that I was physically present for the evaluation, physical examination, lab and imaging review of the patient with the residents. I discussed the case with the residents and agree with the findings and plans of care as documented above. Rachel Sarmiento MD
--- NOTE | 2024-10-12 11:02 | ESPR_ITS ---
Documentation for date of: 10/12/24 Subjective Subjective Interval history: Patient was seen and examined by the bedside. No acute overnight events. Patient reports feeling better, still have left sided weakness and facial droop. Planned to be discharged to SNF. Exam Vital Signs Temp Pulse Resp BP Pulse Ox O2 Del Method O2 Flow Rate 97.1 F 67 15 142/81 H 94 L Room Air 2 10/12/24 08:00 10/12/24 08:30 10/12/24 08:00 10/12/24 08:30 10/12/24 08:00 10/12/24 08:00 10/12/24 08:00 Narrative Exam Gen: Chronically ill-appearing female. HEENT: NCAT, PERRLA, EOMI, MMM, anicteric conjunctivae. CVS: normal S1 and S2. RRR. No M/R/G. Resp: CTA B/L. No rhonchi, rales, crackles or wheezing. Abd: soft, non-tender, non-distended. BS+ in all 4 quadrants. MSK: Good ROM in BUE & BLE. No edema or rash. Neuro: Mild left sided lower facial droop. Strength 5/5 in RUE & RLE, strength 4/5 in LUE, LLE. Dysarthria. Tendon reflexes equal, 1+, Babinski negative bilaterally. Alert and oriented x3. Psych: appropriate mood and affect. Objective Labs 10/12/24 05:51 10/12/24 05:51 Labs: Laboratory Results - last 24 hr 10/12/24 05:51 WBC 6.1 RBC 4.11 Hgb 8.6 L Hct 29.7 L MCV 72 L MCH 20.9 L MCHC 29.0 L RDW Std Deviation 51.7 H Plt Count 230 Neut % (Auto) 80 Lymph % (Auto) 9 L [place] % (Auto) 8 Eos % (Auto) 2 Baso % (Auto) 0 Neut # (Auto) 4.9 Lymph # (Auto) 0.6 L [place] # (Auto) 0.5 Eos # (Auto) 0.1 Baso # (Auto) 0.0 Immature Gran # (Auto) 0.02 H Absolute Nucleated RBC 0.00 Immature Gran % 0 Nucleated RBC % 0 Sodium 142 Potassium 4.0 Chloride 106 Carbon Dioxide 29.1 Anion Gap 7 BUN 9 Creatinine 0.6 Estim Creat Clear Calc 91.4 eGFR > 60 BUN/Creatinine Ratio 15 Glucose 107 H Calculated Osmolality 281 Calcium 8.3 Corrected Calcium 8.5 Phosphorus 4.2 Magnesium 1.7 Total Bilirubin 0.4 AST 30 ALT 13 Alkaline Phosphatase 48 Total Protein 6.5 Albumin 3.8 Globulin 2.7 Albumin/Globulin Ratio 1.4 Quality Measures Quality Measures VTE prophylaxis Assessment & Plan Assessment Current Active Medications: Generic Name Dose Route Start Last Admin Trade Name Freq PRN Reason Stop Dose Admin Acetaminophen 650 mg 10/08/24 15:30 10/11/24 20:46 Acetaminophen 325 Mg Tablet PO 11/07/24 15:29 650 mg Q6H PRN Administration Fever >100 or pain 1-3 Albuterol/Ipratropium 3 ml 10/10/24 11:56 10/11/24 18:39 Albuterol/Ipratropium (Duoneb) Rt Kary 3 Ml Nebu INH 11/09/24 11:59 3 ml Q8HRRT PRN Administration wheezing Aspirin 81 mg 10/09/24 15:15 10/12/24 08:30 Aspirin Ec 81 Mg Tabec PO 11/08/24 15:14 81 mg QDAY HUEY Administration Atenolol 25 mg 10/10/24 09:00 10/12/24 08:30 Atenolol 25 Mg Tablet PO 11/09/24 08:59 25 mg BID HUEY Administration Atorvastatin Calcium 80 mg 10/08/24 21:00 10/11/24 20:40 Atorvastatin Calcium 20 Mg Tablet PO 11/07/24 20:59 80 mg HS HUEY Administration Dextrose 25 ml 10/09/24 07:29 Dextrose 50%-Water Inj 50 Ml Syringe IV 11/08/24 07:28 Q15MIN PRN BG 50-70 responsive npo pt Dextrose 50 ml 10/09/24 07:29 Dextrose 50%-Water Inj 50 Ml Syringe IV 11/08/24 07:28 Q15MIN PRN BG <50 OR BG <70 & pt unresponsive Duloxetine HCl 30 mg 10/11/24 21:00 10/12/24 08:30 Duloxetine Hcl 30 Mg Capsule PO 11/10/24 20:59 30 mg BID HUEY Administration Glucagon 1 mg 10/09/24 07:29 Glucagon Inj 1 Mg Vial IM Q15MIN PRN BG <70, and no IV access Lisinopril 5 mg 10/10/24 09:00 10/12/24 08:29 Lisinopril 2.5 Mg Tablet PO 11/09/24 08:59 5 mg QDAY HUEY Administration Nicotine 7 mg 10/08/24 16:27 Nicotine Patch 7 Mg/24 Hr Patch.Td24 TOP 11/07/24 16:29 QDAY PRN As needed for nicotine craving Ondansetron HCl 4 mg 10/08/24 15:30 Ondansetron Inj 2 Mg/Ml Inj 2 Ml IV 11/07/24 15:29 Q6H PRN NAUSEA OR VOMITING Protocol Pantoprazole Sodium 40 mg 10/09/24 09:00 10/12/24 08:29 Pantoprazole Inj 40 Mg Vial IVP 11/08/24 08:59 40 mg QDAY HUEY Administration Risperidone 2 mg 10/08/24 21:00 10/11/24 20:40 Risperidone 1 Mg Tablet PO 11/07/24 20:59 2 mg HS HUEY Administration Sennosides 1 tab 10/08/24 15:30 Senna Tablet PO 11/07/24 15:29 QDAY PRN constipation Protocol Plan #Subacute stroke #Right MCA stroke Patient started to experience symptoms [address] head showed large infarct in the right temporoparietal occipital lobe. Repeat CT some element of hemorrhagic conversion of this infarct. Disharge recommendations: - Aspirin 81 mg qday ? Atorvastatin 80 mg daily ? Euglycemia and normothermia ? SNF placement for rehabilitation - continue with PT -BP control - follow-up with Dr. Kaiser in 2 weeks #Hypertension #Hyperlipidemia #Iron deficiency anemia #? History of bipolar vs depression #Nicotine dependence #? COPD - management per primary team Plan of care discussed with attending Dr. Kaiser. Ena Stanton MD, PGY 1. Attending Provider Attestation/Addendum Patient was seen and examined at the bedside and I agree with the residents findings, assessment and plan of care. Patient is stable for discharge on aspirin 81 mg along with statin. She has shown significant improvement from the time of admission in her left sided strength. Continue with inpatient rehab and follow-up in [address] head.
--- NOTE | 2024-10-12 11:30 | PC.SS ---
Addendum entered by Christine Euceda 10/12/24 15:56: From the [employer] transportation has been accepted and arranged with [facility]. SS spoke to Rika from [facility] who confirmed transportation. Transport time is 5pm to [facility]. Rika is aware pt is ready at 3pm. Bedside nurse, Rebecca is aware. Jeanine HAMMER is aware. Laura from [facility] is aware. SNF packet has been prepared. SS has spoken to Merlene Palencia from [facility] to inform her pt is discharging today to [facility] for short term. Original Note: SS has setup gurney transportation using [employer] for 3pm to [facility]. Ref# [id number]. Bedside nurse, Rebecca is aware. Carmen HAMMER is aware. Laura from [facility] is aware. SS has spoken to patient's dtr, Karel Hong [phone] and informed her. SS attempted to provide [facility] demographic information to dtr but dtr refused. Dtr states she is aware of [facility]'s address & phone#.
--- NOTE | 2024-10-12 18:20 | PC.NURSE ---
REPORT CALLED TO NICK, TALK TO JENNIFER STAFF NURSE.
== END 2024-10-12 18:35 | disposition skilled nursing facility (03) | DRG 45 ==
LOC: SERX 12:37 → SERHOLD 15:48 → S2NX 18:49
PROVIDERS: Nurse Practitioner Family; Admitting Provider Student in an Organized Health Care Education/Training Program; Emergency Provider Emergency Medicine; Visit Provider Student in an Organized Health Care Education/Training Program
DX: I63.511 Cerebral infarction due to unspecified occlusion or stenosis of right middle cerebral artery (principal); R29.810 Facial weakness; I11.0 Hypertensive heart disease with heart failure; I50.9 Heart failure, unspecified; E78.5 Hyperlipidemia, unspecified; D50.9 Iron deficiency anemia, unspecified; E11.9 Type 2 diabetes mellitus without complications; F17.200 Nicotine dependence, unspecified, uncomplicated; F31.9 Bipolar disorder, unspecified; G81.94 Hemiplegia, unspecified affecting left nondominant side; J44.9 Chronic obstructive pulmonary disease, unspecified; R29.708 NIHSS score 8; R62.7 Adult failure to thrive; W18.30XA Fall on same level, unspecified, initial encounter; Z66 Do not resuscitate; R47.81 Slurred speech; F32.A Depression, unspecified; R26.2 Difficulty in walking, not elsewhere classified; R00.1 Bradycardia, unspecified; Z79.82 Long term (current) use of aspirin; Z79.899 Other long term (current) drug therapy; Z86.73 Personal history of transient ischemic attack (TIA), and cerebral infarction without residual deficits; Z88.8 Allergy status to other drugs, medicaments and biological substances
CPT/HCPCS: 36415; 70450; 70496; 70498; 70544; 70551; 71045; 80053; 80061; 80307; 81001; 82140; 82270; 82274; 82550; 83036; 83540; 83550; 83735; 83880; 84100; 84439; 84443; 84484; 85025; 85046; 85610; 85730; 92526; 92610; 93005; 93306; 94640; 94664; 96360; 96361; 97162; 99285; A4649; A9270; J1644; J2470; J7030; Q9967; G0328

== ENCOUNTER 2025-05-01 20:25 | Emergency (ER) | payer MEDICAID, SELFPAY ==
[2025-05-01 20:28] VITALS: PULSE 80; RESP 18; O2SAT 98; BMI 32.9
[2025-05-01 20:31] VITALS: BP 147/74; PULSE 76; RESP 18; TEMP 36.5; O2SAT 96; BMI 34.4
[2025-05-01 20:38] VITALS: PULSE 80; O2SAT 98
--- NOTE | 2025-05-01 20:39 | PD.EDADULT ---
ED General RME/HPI General Chief complaint: Abdominal Pain Stated complaint: CONSTIPATION x5 DAYS Time Seen by Provider: 05/01/25 20:36 Arrival date/time: 05/01/25 20:25 CC: Abdominal pain constipation and nausea HPI ongoing for the past 5 days patient comes from assisted care facility. EMS reports stable vital signs patient is awake alert oriented denies chest pain shortness of breath or difficulty breathing. No other complaints at this time patient is mildly ill kempt. Related Data Home Medications ?Medication ?Instructions ?Recorded ?Confirmed risperidone 2 mg tablet (Risperdal) 2 mg PO HS #0 tabs 11/21/16 10/09/24 atenolol 25 mg tablet 25 mg PO BID 09/06/18 10/09/24 duloxetine 20 mg capsule,delayed 20 mg PO BID 08/03/20 10/09/24 release lisinopril 5 mg tablet 5 mg PO QDAY 08/03/20 10/09/24 budesonide-formoterol HFA 80 2 puff inhalation QDAY 10/09/24 10/09/24 mcg-4.5 mcg/actuation aerosol inhaler (Symbicort) Previous Rx's ?Medication ?Instructions ?Recorded albuterol sulfate 90 mcg/actuation 2 puff INH Q4HR PRN Shortness Of 08/09/20 aerosol inhaler (Ventolin HFA) Breath Or Wheeze #6.7 grams aspirin 81 mg tablet,delayed 81 mg PO QDAY #30 tabs 10/12/24 release (Ecotrin Low Strength) atorvastatin 20 mg tablet 80 mg (4 x 20 mg) PO HS #14 tabs 10/12/24 docusate sodium 100 mg capsule 100 mg PO BID PRN constipation #10 10/12/24 (Colace) caps polyethylene glycol 3350 17 4 g PO QDAY #238 grams 05/01/25 gram/dose oral powder (Miralax) Allergies Allergy/AdvReac Type Severity Reaction Status Date / Time hydrochlorothiazide AdvReac Severe pass out Verified 05/01/25 20:42 lactose AdvReac Severe DIARRHEA,GA Verified 05/01/25 20:42 S tetracycline AdvReac Severe upset Verified 05/01/25 20:42 stomach,burning Review of Systems Review of Systems Narrative Review of Systems: GEN: No fever, no chills, no weight loss EYES: No discharge, no visual changes, no pain HEENT: No ear pain, no congestion, no sore throat PULM: No shortness of breath, no cough, no congestion CV: No chest pain, no dyspnea on exertion, no palpitations GI: + nausea, no vomiting, no diarrhea, + pain, + constipation : No frequency, no urgency, no dysuria MUSC/SKEL: No joint pain, no back pain SKIN: No rash PSYCH: No hallucinations, no depression HEME/LYMPH: No easy bleeding or bruising tendencies NEURO: No weakness, no headache Past Medical History Past Medical History NEUROLOGIC: Negative Neurological Disorders, Cerebrovascular Accident, Transient Ischemic Attacks (TIA), Dementia, Alzheimer's Disease, Parkinson's Disease, Brain Tumor, Meningitis, Seizures, Epilepsy, Multiple Sclerosis, Cerebral Palsy, Amyotrophic Lateral Sclerosis (ALS/Taty Gehrig's), Guillain-[place] Syndrome, Spina Bifida, Paralysis, Peripheral Neuropathy, Agee's Palsy, Subdural Hematoma, Migraine, Head Trauma, Spinal Cord Injury or Traumatic Brain Injury CARDIAC: Positive Hypertension; Negative Cardiac Disorders, Myocardial Infarction, Cardiac Arrhythmia, Atrial Fibrillation, Angina, Heart Murmur, Coronary Artery Disease, Atherosclerotic Heart Disease, Peripheral Vascular Disease, Hypercholesterolemia, Aneurysm, Congestive Heart Failure, Congenital Heart Disease, Valvular Heart Disease, Rheumatic Fever, Cardiomyopathy, Edema, Pericarditis, Cellulitis, Deep Vein Thrombosis, Hypotension or Varicose Veins RESPIRATORY: Positive Chronic Obstructive Pulmonary Disease (COPD); Negative Asthma, Bronchitis, Emphysema, Pneumonia, Pulmonary Fibrosis, Cystic Fibrosis, Tuberculosis, Pulmonary Embolism, Pulmonary Edema or Sleep Apnea GASTROINTESTINAL: Positive Gastrointestinal Disorders and Diverticulitis; Negative Hepatitis, Cirrhosis, Pancreatitis, Celiac Disease, Gall Bladder Disease, Gastrointestinal Bleed, Esophageal Varices, Villa's Esophagus, Colitis, Ulcerative Colitis, Diverticulosis, Ulcer, Colorectal Cancer, Irritable Bowel, Crohn's Disease, Obstructive Bowel, Hiatal Hernia, Hemorrhoids, Gastroesophageal Reflux Disease or Obesity GENITOURINARY: Negative Genitourinary Disorders, Renal Disease, Kidney Stones, Polycystic Kidney Disease, Neurogenic Bladder, Inguinal Hernia, Dialysis, Prostate Cancer or Benign Prostatic Hyperplasia REPRODUCTIVE: Positive Previous Pregnancies; Negative Breast Cancer, Endometriosis, Pelvic Inflammatory Disease, Testicular Cancer or Uterine Prolapse MUSCULOSKELETAL: Positive Musculoskeletal Disorders, Arthritis and Osteoporosis; Negative Muscular Dystrophy, Myasthenia Gravis, Marfan's Syndrome, Bone Cancer, Rheumatoid Arthritis, Degenerative Disk Disease, Gout, Scoliosis, Carpal Tunnel Syndrome, Fibromyalgia, Fractures, Degenerative Joint Disease, Osteomyelitis or Poliovirus ENT: Positive Retinal Detachment and Ear Infection; Negative Cataracts, Glaucoma, Blind, Macular Degeneration, Deafness, Head Trauma or Eye Prosthesis ENDOCRINE: Positive Diabetes Mellitus Type 2; Negative Endocrine Disorders, Diabetes Mellitus Type 1, Hypoglycemia, Williston's Syndrome, Jolon's Disease, Hyperthyroidism, Hypothyroidism, Parathyroid Disease, Pituitary Disease, Systemic Lupus Erythematosus, Syndrome of Inappropriate Antidiuretic Hormone (SIADH), Adrenal Disease or Graves' Disease HEMATOLOGIC: Negative Blood Disorders, Anemia, Leukemia, Hemophilia, Thalassemia, Sickle Cell Disease or Clotting Problems PSYCHO/SOCIAL: Negative Psychiatric Problems, Schizophrenia, Recreational Drug Use, Bipolar Disorder, Depression, Anxiety, Behavior Problems, Self-Mutilation, Attention Deficit Disorder, Attention Deficit Hyperactivity Disorder, Depression, Post Traumatic Stress Disorder or Eating Disorder OTHER HISTORY: Positive Hospitalization, Blood Transfusions, MRSA and Chicken Pox; Negative Autoimmune Disease, Down Syndrome, Autism, Developmental Delay, Shingles, Falls, Blood Transfusion Reaction, Anesthesia Reactions, Organ Transplant, Chemotherapy, Radiation Therapy, Hyperbaric Therapy, VRSA, Vancomycin-Resistant Enterococci, Human Immunodeficiency Virus (HIV), Measles, Mumps, Rubella (Cymro Measles), Pertussis, Clostridium Difficile, Cancer, Breast Cancer, Cervical Cancer, Colorectal Cancer, Lung Cancer, Ovarian Cancer, Prostate Cancer or Testicular Cancer Family History FAMILY HISTORY: Positive Family Psychiatric Problems, Family Cardiac Disorders, Family Gastrointestinal Problems, Family Cancer and Family Surgery; Negative Family Respiratory Disorders or Family Anesthesia Reaction Surgical History SURGICAL: Positive Tonsillectomy and Joint Replacement; Negative Cardiac Surgery, Open Heart Surgery, Coronary Artery Bypass Graft, Valve Replacement, Vascular Surgery, Coronary Stent, Cardiac Catheterization, Pacemaker, Angiogram, Auto Implanted Cardiovert Defib, Carotid Endarterectomy, Endocrine Surgery, Thyroidectomy, Ear Surgery, Tympanostomy Tube, Eye Surgery, Nose Surgery, Oral Surgery, Adenoidectomy, Cochlear Implant, Corneal Transplant, Throat Surgery, Abdominal Surgery, Tracheostomy, Gastric Bypass Surgery, Gastrostomy, Bowel Surgery, Nephrectomy, Transurethral Resection, Amputation, Open Reduction Internal Fixation, Arthroscopy, Neurologic Surgery, Brain Shunt, Mastectomy, Lumpectomy, Hysterectomy, Tubal Ligation, Section or Organ Transplant Social History SMOKING STATUS: Never smoker ED Exam Narrative Physical exam: [General: Obese not in any acute distress Head normocephalic HEENT: Within acceptable limits Neck is supple nontender Chest equal chest rise nontender to palpation Respiratory: Clear to auscultation no wheezes crackles or rubs CV: Rate rhythm is regular no murmurs rubs or clicks Abdomen is distended secondary to body habitus soft, diffusely tender ,no masses positive bowel sounds all 4 quadrants Back: No CVA tenderness no spinous process tenderness from cervical spine thoracic and lumbar spine Skin: Intact no petechiae rash induration ulceration or crepitus Extremities: Moving all extremity against resistance cap refill less than 2 seconds neurosensory intact. No lower extremity edema Neuro: Awake alert oriented x3 Glascow coma 15 no focal deficits] Course Course Course Narrative: Patient states at 2252 she is feeling much better, is passing gas and small amount of stool. At this time she wants to go home I am comfortable with this as her laboratory results are wholly unremarkable. Patient will be given prescription for MiraLAX she has to follow-up with her primary care doctor. Patient is in agreement with this plan. Quality Measures none Orders Category Date Time Status XR abdomen series w chest 1V Stat Exams 05/01/25 22:13 Stop Req CBC Stat Lab 05/01/25 21:03 Completed CMP [Comprehensive Metabolic Panel] Stat Lab 05/01/25 21:03 Completed Urinalysis Stat Lab 05/01/25 21:03 Completed Magnesium Citrate Liqd [Citrate of Magnesia Liqd] Med 05/01/25 20:37 Discontinued 150 ml PO X1 ONE Magnesium Citrate Liqd [Citrate of Magnesia Liqd] Med 05/01/25 22:42 Stop Req 150 ml PO X1 ONE Vital Signs Vital signs: Vital Signs Temperature 97.7 F 05/01/25 20:31 Pulse Rate 76 05/01/25 20:31 Respiratory Rate 18 05/01/25 20:31 Blood Pressure 147/74 H 05/01/25 20:31 Pulse Oximetry (%) 96 05/01/25 20:31 Oxygen Delivery Method Room Air 05/01/25 20:31 Discharge Plan Plan Patient Disposition: HOME (Self Care) Patient condition on transfer: Stable Prescriptions/Referrals Prescriptions/Med Rec: New polyethylene glycol 3350 [Miralax] 17 gram/dose powder 4 g PO QDAY Qty: 238 0RF No Action risperidone [Risperdal] 2 MG tablet 2 mg PO HS Qty: 0 lisinopril 5 mg Tablet 5 mg PO QDAY duloxetine 20 mg Capsule,Delayed Release(Dr/Ec) 20 mg PO BID albuterol sulfate [Ventolin HFA] 90 mcg/actuation Hfa Aerosol Inhaler 2 puff INH Q4HR PRN (Reason: Shortness Of Breath Or Wheeze) Qty: 6.7 0RF atenolol 25 mg Tablet 25 mg PO BID budesonide-formoterol [Symbicort] 80-4.5 mcg/actuation HFA aerosol inhaler 2 puff inhalation QDAY Patient Comments: INHALE TWO PUFF BY MOUTH TWICE DAILY atorvastatin 20 mg Tablet 80 mg PO HS Qty: 14 0RF aspirin [Ecotrin Low Strength] 81 mg Tablet,Delayed Release (Dr/Ec) 81 mg PO QDAY Qty: 30 0RF docusate sodium [Colace] 100 mg capsule 100 mg PO BID PRN (Reason: constipation) Qty: 10 0RF Referrals: Sujit Palencia MD [Physician, Family Practice] - In 1 week No Primary/Family,Physician [Primary Care Provider] - In 1 week Problem List Clinical Impression: Abdominal pain, Constipation Patient/Caregiver Discharge Instructions Education Materials: Treating Constipation, Eating a High-Fiber Diet Print Language: Qatari Stand Alone Forms: Trupt[employer] Award Info., Patient Portal Info Letter, Work/School Release PA/ITEM REPAIR MANAGER Supervising Physician PA/ITEM REPAIR MANAGER Supervising Physician: Carlos Penn ENP [facility] Clinical Information Provided by: patient and EMS Medical [facility] Meds/Rx considered, not ordered None Labs/Rad/Tests considered, not ordered None Chronic Illness/Social Conditions which may negatively complicate care or outcome(s)-explain: None or not applicable EKG EKG not done Labs Labs: interpreted by nm Lab(s) Interpretation(s): CBC shows no acute leukocytosis anemia thrombocytopenia CMP shows no significant electrolyte imbalances renal impairment transaminitis or T. bili elevation Urine is turbid leukocyte esterase +1+ bacteria 4 WBCs and crystals are present. Medication Administration(s) Medication Administration History Discontinued Medications Magnesium Citrate (Magnesium Citrate 300 Ml Btl) 150 ml PO X1 ONE Stop: 05/01/25 20:38 Last Admin: 05/01/25 21:05 Dose: 150 ml Documented By: NATANAEL Magnesium Citrate (Magnesium Citrate 300 Ml Btl) 150 ml PO X1 ONE Stop: 05/01/25 22:43
[2025-05-01] MEDS: MAGNESIUM CITRATE 300 ML BTL 150 ML PO (21:05)
[2025-05-01 21:10] LABS: Collection Type, Urine Clean Catch; RBC,Urine 0 /hpf (0-3)
[2025-05-01 21:12] LABS: Basophils # (Auto) 0.0 Thou/mm3 (0.0-0.2); Basophils % (Auto) 0 % (0-2.5); Eosinophils # (Auto) 0.1 Thou/mm3 (0.0-0.5); Eosinophils % (Auto) 2 % (0-10); Hematocrit 37.2 % (36.0-46.0); Hemoglobin 12.2 g/dL (12.0-16.0); Immature Granulocytes Auto 0.01 Thou/mm3 (0.00-0.00); Lymphocytes # (Auto) 2.0 Thou/mm3 (1.0-4.8); Lymphocytes % (Auto) 31 % (10-50); Mean Corpuscular HGB Conc 32.8 g/dl (31.0-37.0); Mean Corpuscular Hemoglobin 27.1 pg (25.0-35.0); Mean Corpuscular Volume 83 fL (80-100); Monocytes # (Auto) 0.6 Thou/mm3 (0.0-0.8); Monocytes % (Auto) 8 % (0-12); Neutrophils # (Auto) 3.8 Thou/mm3 (1.8-7.7); Neutrophils % (Auto) 58 % (37-80); Nucleated Red Blood Cell # 0.00 Thou/mm3 (0.00-0.00); Nucleated Red Blood Cell % 0 /100 WBC (0); Platelet Count 227 Thou/mm3 (140-440); RDW Standard Deviation 51.1 fL (36.4-46.3); Red Blood Count 4.51 Miln/mm3 (4.00-5.20); White Blood Count 6.6 Thou/mm3 (3.6-11.0)
[2025-05-01 21:19] LABS: Amorphous Crystals,Urine Present (Absent); Bacteria,Urine 1+; Bilirubin,Urine Negative (Negative); Blood,Urine Negative (Negative); Clarity,Urine Turbid (Clear/Hazy); Color,Urine Colorless (Lt Yel-Yel); Glucose, Urine Negative (Negative); Ketones,Urine Negative (Negative); Leukocyte Esterase,Urine Positive (Negative); Nitrite,Urine Negative (Negative); PH,Urine 6.5 (5.0-7.0); Protein,Urine Negative (Neg - Trace); Specific Gravity,Urine 1.007 (1.001-1.035); Squamous Epithelial Cell,Urine 1 /hpf (0-5); Urobilinogen,Urine Negative mg/dL (0.0-1.0); WBC,Urine 4 /hpf (0-5)
[2025-05-01 21:46] LABS: Alanine Aminotransferase 20 U/L (10-49); Albumin, Serum 4.3 gm/dL (3.4-4.8); Albumin/Globulin Ratio 1.9 (1.2-2.2); Alkaline Phosphatase 69 U/L (46-116); Anion Gap 7 (7-16); Aspartate Amino Transferase 23 U/L (0-34); BUN/Creatinine Ratio 17 Ratio (12-20); Bilirubin,Total 0.2 mg/dL (0.3-1.2); Blood Urea Nitrogen 12 mg/dL (9-23); Calcium 9.0 mg/dL (8.3-10.6); Calcium (Corrected) 9.0 mg/dL (8.5-10.1); Carbon Dioxide 25.5 mMol/L (20.0-31.0); Chloride 107 mMol/L (98-107); Creatinine (Component) 0.7 mg/dL (0.6-1.3); Estimated Creatinine Clearance 86.6 mL/min (>60); Globulin 2.3 gm/dL (2.3-3.5); Glucose 92 mg/dL (74-106); Osmolality,Calculated 277 (275-295); Potassium 4.1 mMol/L (3.4-5.1); Sodium 139 mMol/L (136-145); Total Protein 6.6 gm/dL (5.7-8.2); eGFR > 60 See Note
[2025-05-01 22:49] VITALS: BP 146/82; PULSE 84; RESP 18; TEMP 36.4; O2SAT 99
--- NOTE | 2025-05-01 22:57 | PC.NURSE ---
PATIENT STATES SHE PASSED A LOT OF GAS AND FEELS BETTER, SMALL BOWEL MOVEMENT NOTED IN COMMODE.
== END 2025-05-01 23:49 | disposition home or self-care (01) ==
PROVIDERS: Registered Nurse General Practice; Emergency Provider Emergency Medicine
DX: K59.00 Constipation, unspecified (principal)
CPT/HCPCS: 36415; 80053; 81001; 85025; 99282; A9270

== ENCOUNTER 2025-05-04 12:22 | Emergency (ER) | payer MEDICAID, SELFPAY ==
[2025-05-04 12:24] VITALS: BMI 33.8
[2025-05-04 12:45] VITALS: BP 164/84; PULSE 118; RESP 20; TEMP 36.9; O2SAT 97
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
[2025-05-04 13:41] LABS: Basophils # (Auto) 0.0 Thou/mm3 (0.0-0.2); Basophils % (Auto) 0 % (0-2.5); Eosinophils # (Auto) 0.0 Thou/mm3 (0.0-0.5); Eosinophils % (Auto) 0 % (0-10); Hematocrit 43.3 % (36.0-46.0); Hemoglobin 14.4 g/dL (12.0-16.0); Immature Granulocytes Auto 0.02 Thou/mm3 (0.00-0.00); Lymphocytes # (Auto) 1.5 Thou/mm3 (1.0-4.8); Lymphocytes % (Auto) 20 % (10-50); Mean Corpuscular HGB Conc 33.3 g/dl (31.0-37.0); Mean Corpuscular Hemoglobin 27.2 pg (25.0-35.0); Mean Corpuscular Volume 82 fL (80-100); Monocytes # (Auto) 0.5 Thou/mm3 (0.0-0.8); Monocytes % (Auto) 7 % (0-12); Neutrophils # (Auto) 5.4 Thou/mm3 (1.8-7.7); Neutrophils % (Auto) 72 % (37-80); Nucleated Red Blood Cell # 0.00 Thou/mm3 (0.00-0.00); Nucleated Red Blood Cell % 0 /100 WBC (0); Platelet Count 261 Thou/mm3 (140-440); RDW Standard Deviation 51.0 fL (36.4-46.3); Red Blood Count 5.30 Miln/mm3 (4.00-5.20); White Blood Count 7.5 Thou/mm3 (3.6-11.0)
[2025-05-04 13:54] LABS: Alanine Aminotransferase 25 U/L (10-49); Albumin, Serum 4.9 gm/dL (3.4-4.8); Albumin/Globulin Ratio 1.7 (1.2-2.2); Alkaline Phosphatase 76 U/L (46-116); Anion Gap 10 (7-16); Aspartate Amino Transferase 29 U/L (0-34); BUN/Creatinine Ratio 11 Ratio (12-20); Bilirubin,Total 0.3 mg/dL (0.3-1.2); Blood Urea Nitrogen 9 mg/dL (9-23); Calcium 9.5 mg/dL (8.3-10.6); Calcium (Corrected) 9.5 mg/dL (8.5-10.1); Carbon Dioxide 25.2 mMol/L (20.0-31.0); Chloride 106 mMol/L (98-107); Creatinine (Component) 0.8 mg/dL (0.6-1.3); Estimated Creatinine Clearance 75.1 mL/min (>60); Globulin 2.9 gm/dL (2.3-3.5); Glucose 130 mg/dL (74-106); Magnesium 1.8 mg/dL (1.6-2.6); Osmolality,Calculated 281 (275-295); Potassium 3.6 mMol/L (3.4-5.1); Sodium 141 mMol/L (136-145); Total Protein 7.8 gm/dL (5.7-8.2); eGFR > 60 See Note
[2025-05-04 14:16] VITALS: BP 117/77; PULSE 117; RESP 20; TEMP 37.4; O2SAT 97
[2025-05-04 14:16] LABS: Collection Type, Urine Clean Catch
[2025-05-04 14:31] LABS: Bilirubin,Urine Negative (Negative); Blood,Urine Negative (Negative); Clarity,Urine Clear (Clear/Hazy); Color,Urine Colorless (Lt Yel-Yel); Culture Indicated,Urine Not Indicated; Glucose, Urine Negative (Negative); Ketones,Urine Negative (Negative); Leukocyte Esterase,Urine Positive (Negative); Nitrite,Urine Negative (Negative); PH,Urine 6.5 (5.0-7.0); Protein,Urine Negative (Neg - Trace); RBC,Urine 1 /hpf (0-3); Specific Gravity,Urine 1.005 (1.001-1.035); Squamous Epithelial Cell,Urine < 1 /hpf (0-5); Urobilinogen,Urine Negative mg/dL (0.0-1.0); WBC,Urine 3 /hpf (0-5)
[2025-05-04 14:34] LABS: Alcohol, Urine Negative (Negative); Amphetamine/Methamp Scrn,U Negative (Negative); Barbiturate Screen,Urine Negative (Negative); Benzodiazepines Screen,Urine Negative (Negative); Benzoylecgonine Screen, Ur Negative (Negative); Fentanyl Screen,Urine Negative (Negative); Opiate Screen,Urine Negative (Negative); THC Screen,Urine Negative (Negative)
[2025-05-04 16:07] VITALS: BP 102/60; PULSE 115; RESP 20; TEMP 36.4; O2SAT 96
[2025-05-04 17:00] VITALS: BP 109/65; PULSE 96; RESP 18; TEMP 36.8; O2SAT 95
== END 2025-05-04 17:00 | disposition home or self-care (01) ==
PROVIDERS: Nurse Practitioner Primary Care; Emergency Provider Emergency Medicine
DX: F22 Delusional disorders (principal)
CPT/HCPCS: 36415; 80053; 80307; 80320; 81001; 83735; 85025; 99282; A9270; G0480

== ENCOUNTER 2025-05-08 09:06 | Emergency (ER) | payer MEDICAID, SELFPAY ==
[2025-05-08 09:13] VITALS: BP 157/77; PULSE 90; RESP 19; TEMP 36.8; O2SAT 99
[2025-05-08 09:18] VITALS: PULSE 95; RESP 20; O2SAT 100; BMI 26.1
--- NOTE | 2025-05-08 09:37 | EKG_ITS ---
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
--- NOTE | 2025-05-08 09:47 | PC.NURSE ---
PATIENT ARRIVED ED VIA EMS SECONDARY TO NEAR SYNCOPE. PATIENT STATES SHE WEAKNESS, NO FALL OR SYNCOPAL EPISODE. PATIENT ABLE TO AMBULATE WITH ASSISTANCE. PATIENT ON MONITOR, AND IV ASSESSED UPON ARRIVAL. PATIENT WITH CALL LIGHT AND INSTRUCTIONS UNDERSTOOD. DR. KHAN IN ROOM ASSESSING PATIENT AT THIS TIME.
[2025-05-08 09:51] VITALS: BP 157/77; PULSE 95; RESP 18; O2SAT 99
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
[2025-05-08 10:38] LABS: Basophils # (Auto) 0.0 Thou/mm3 (0.0-0.2); Basophils % (Auto) 0 % (0-2.5); Eosinophils # (Auto) 0.0 Thou/mm3 (0.0-0.5); Eosinophils % (Auto) 0 % (0-10); Hematocrit 41.6 % (36.0-46.0); Hemoglobin 13.8 g/dL (12.0-16.0); Immature Granulocytes Auto 0.01 Thou/mm3 (0.00-0.00); Lymphocytes # (Auto) 1.0 Thou/mm3 (1.0-4.8); Lymphocytes % (Auto) 18 % (10-50); Mean Corpuscular HGB Conc 33.2 g/dl (31.0-37.0); Mean Corpuscular Hemoglobin 27.6 pg (25.0-35.0); Mean Corpuscular Volume 83 fL (80-100); Monocytes # (Auto) 0.4 Thou/mm3 (0.0-0.8); Monocytes % (Auto) 7 % (0-12); Neutrophils # (Auto) 4.1 Thou/mm3 (1.8-7.7); Neutrophils % (Auto) 74 % (37-80); Nucleated Red Blood Cell # 0.00 Thou/mm3 (0.00-0.00); Nucleated Red Blood Cell % 0 /100 WBC (0); Platelet Count 246 Thou/mm3 (140-440); RDW Standard Deviation 52.2 fL (36.4-46.3); Red Blood Count 5.00 Miln/mm3 (4.00-5.20); White Blood Count 5.5 Thou/mm3 (3.6-11.0)
[2025-05-08 11:23] LABS: Amphetamine/Methamp Scrn,U Negative (Negative); Barbiturate Screen,Urine Negative (Negative); Benzodiazepines Screen,Urine Negative (Negative); Benzoylecgonine Screen, Ur Negative (Negative); Fentanyl Screen,Urine Negative (Negative); Opiate Screen,Urine Negative (Negative); THC Screen,Urine Negative (Negative)
[2025-05-08 11:29] LABS: Acetaminophen < 2.0 mcg/mL (10.0-20.0); Alanine Aminotransferase 26 U/L (10-49); Albumin, Serum 4.6 gm/dL (3.4-4.8); Albumin/Globulin Ratio 1.6 (1.2-2.2); Alcohol, Blood Medical < 3.0 mg/dL (0-10.0); Alkaline Phosphatase 69 U/L (46-116); Anion Gap 7 (7-16); Aspartate Amino Transferase 29 U/L (0-34); BUN/Creatinine Ratio 14 Ratio (12-20); Bilirubin,Total 0.4 mg/dL (0.3-1.2); Blood Urea Nitrogen 10 mg/dL (9-23); Calcium 9.1 mg/dL (8.3-10.6); Calcium (Corrected) 9.1 mg/dL (8.5-10.1); Carbon Dioxide 24.5 mMol/L (20.0-31.0); Chloride 113 mMol/L (98-107); Creatinine (Component) 0.7 mg/dL (0.6-1.3); Estimated Creatinine Clearance 81.5 mL/min (>60); Globulin 2.8 gm/dL (2.3-3.5); Glucose 134 mg/dL (74-106); Osmolality,Calculated 287 (275-295); Potassium 3.6 mMol/L (3.4-5.1); Salicylate < 3.0 mg/dL; Sodium 144 mMol/L (136-145); Total Protein 7.4 gm/dL (5.7-8.2); eGFR > 60 See Note
[2025-05-08 11:35] VITALS: BP 148/72; PULSE 72; RESP 20; O2SAT 97
[2025-05-08 13:26] VITALS: BP 148/91; PULSE 78; RESP 20; O2SAT 97
[2025-05-08 14:14] VITALS: BP 112/81; PULSE 83; RESP 18; TEMP 36.7; O2SAT 97
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
== END 2025-05-08 17:03 ==
PROVIDERS: Emergency Provider Emergency Medicine
DX: F22 Delusional disorders (principal); R94.31 Abnormal electrocardiogram [ECG] [EKG]
CPT/HCPCS: 36415; 80053; 80307; 80320; 80329; 83880; 84484; 85025; 85379; 93005; 99282; G0480